=== PATIENT | male | born 1945 | race Caucasian/White ===

== ENCOUNTER 2016-12-15 08:20 | Outpatient (CLI) | payer MEDICARE, BC ==
[~2016-12-15 08:20] MED LIST: ALIS300T PO; ATOR10TA PO; CARV6.252 PO; CLON0.5T4 PO; ESCI10TA PO; LEVO75TA7 PO; MELO-270 PO; QUET25TA PO; TRIA1CAP2 PO
[2016-12-15] MEDS ORDERED: REGADENOSON 0.4 MG/5 ML DISP.SYRIN IVP ONE (10:00)
== END 2016-12-15 23:59 | disposition home or self-care (01) ==
LOC: NM 08:20
PROVIDERS: ATTEND Internal Medicine Interventional Cardiology
DX: Z01.818 Encounter for other preprocedural examination (principal); R07.9 Chest pain, unspecified
CPT/HCPCS: 78452; A9502; J2785

== ENCOUNTER 2017-03-30 10:46 | Outpatient (CLI) | payer MEDICARE, BC ==
[2017-03-30 11:48] LABS: CALCIUM, SERUM 10.6 mg/dL (8.5-10.1); CARBON DIOXIDE 26 mmol/L (21-32); CHLORIDE 106 mmol/L (98-107); CREATININE 1.5 mg/dL (0.6-1.3); GLUCOSE 108 mg/dL (74-106); POTASSIUM 4.2 mmol/L (3.5-5.1); SODIUM SERUM 140 mmol/L (136-145); UREA NITROGEN, BLOOD 27 mg/dL (7-18)
[2017-03-30 14:22] LABS: BASOPHILS % (AUTO) 0.2 % (0.0-2.0); EOSINOPHILS # (AUTO) 0.1 /CMM (0.0-0.7); EOSINOPHILS % (AUTO) 1.5 % (0.0-6.0); HEMATOCRIT 44 % (39-51); HEMOGLOBIN 14.7 g/dL (13.5-17.5); LYMPHOCYTES % (AUTO) 28.8 % (20.0-44.0); MEAN CORPUSCULAR HEMOGLOBIN 30 PG (26.0-33.0); MEAN CORPUSCULAR HGB CONC 33 g/dl (31.0-36.0); MEAN CORPUSCULAR VOLUME 89 fL (80-96); MONOCYTES # (AUTO) 0.6 /CMM (0.1-1.30); MONOCYTES % (AUTO) 8.4 % (2.0-12.0); NEUTROPHILS # (AUTO) 4.1 /CMM (1.8-8.9); NEUTROPHILS % (AUTO) 61.1 % (43.0-81.0); PLATELET COUNT (AUTO) 147 /CMM (150-450); RDW COEFFICIENT OF VARIATION 14.4 (11.5-15.0); RED BLOOD CELL COUNT(AUTO) 4.93 MIL/uL (4.5-6.0); WHITE BLOOD COUNT (AUTO) 6.8 K/uL (4.3-11.0)
== END 2017-03-30 23:59 | disposition home or self-care (01) ==
LOC: LAB 10:46
PROVIDERS: ATTEND Internal Medicine Interventional Cardiology
DX: I25.10 Atherosclerotic heart disease of native coronary artery without angina pectoris (principal)
CPT/HCPCS: 36415; 80048-TC; 85025-TC

== ENCOUNTER 2017-03-31 11:50 | Outpatient (CLI) | payer MEDICARE, BC ==
[2017-03-31] MEDS ORDERED: IOHEXOL-350 100 ML VIAL IV ONE (12:14)
[2017-03-31] MEDS ORDERED: IV NS 0.9% 250 ML IV ONE (12:14)
[2017-03-31] MEDS ORDERED: NITROGLYCERIN 4.9 GM SPRAY ONE (12:32)
== END 2017-03-31 23:59 | disposition home or self-care (01) ==
LOC: RAD 11:50
PROVIDERS: ATTEND Internal Medicine Interventional Cardiology
DX: I77.810 Thoracic aortic ectasia (principal); I25.10 Atherosclerotic heart disease of native coronary artery without angina pectoris; I51.7 Cardiomegaly; I70.0 Atherosclerosis of aorta; I34.0 Nonrheumatic mitral (valve) insufficiency
CPT/HCPCS: 75574; J7050; Q9967

== ENCOUNTER 2017-07-05 14:21 | Inpatient (IN) | payer MEDICARE, BC ==
[~2017-07-05] VITALS: Ht 170.2 cm; Wt 104.8 kg
[~2017-07-05 14:21] MED LIST changes: +MELO-105 PO; -MELO-270 PO
[2017-07-05] MEDS ORDERED: ONDANSETRON HCL/PF 4 MG/2 ML VIAL ONE (14:28)
[2017-07-05] MEDS ORDERED: ONDANSETRON HCL/PF 4 MG/2 ML VIAL IVP ONE (14:30)
[2017-07-05] MEDS ORDERED: IV NS 0.9% 1,000 ML BAG IV ONE (14:30)
[2017-07-05 14:40] LABS: BASOPHILS % (AUTO) 0.6 % (0.0-2.0); EOSINOPHILS # (AUTO) 0.2 /CMM (0.0-0.7); EOSINOPHILS % (AUTO) 2.6 % (0.0-6.0); HEMATOCRIT 43 % (39-51); HEMOGLOBIN 14.8 g/dL (13.5-17.5); LYMPHOCYTES # (AUTO) 1.1 /CMM (0.8-4.8); LYMPHOCYTES % (AUTO) 13.6 % (20.0-44.0); MEAN CORPUSCULAR HEMOGLOBIN 31 PG (26.0-33.0); MEAN CORPUSCULAR HGB CONC 35 g/dl (31.0-36.0); MEAN CORPUSCULAR VOLUME 89 fL (80-96); MONOCYTES # (AUTO) 0.7 /CMM (0.1-1.30); MONOCYTES % (AUTO) 8.6 % (2.0-12.0); NEUTROPHILS # (AUTO) 5.9 /CMM (1.8-8.9); NEUTROPHILS % (AUTO) 74.6 % (43.0-81.0); PLATELET COUNT (AUTO) 215 /CMM (150-450); RDW COEFFICIENT OF VARIATION 13.3 (11.5-15.0); RED BLOOD CELL COUNT(AUTO) 4.83 MIL/uL (4.5-6.0); WHITE BLOOD COUNT (AUTO) 7.9 K/uL (4.3-11.0)
[2017-07-05 14:50] LABS: CALCIUM, SERUM 10.7 mg/dL (8.5-10.1); CARBON DIOXIDE 26 mmol/L (21-32); CHLORIDE 104 mmol/L (98-107); CREATININE 1.6 mg/dL (0.6-1.3); GLUCOSE 104 mg/dL (74-106); POTASSIUM 3.9 mmol/L (3.5-5.1); SODIUM SERUM 139 mmol/L (136-145); UREA NITROGEN, BLOOD 36 mg/dL (7-18)
[2017-07-05 14:54] LABS: INR 0.97 (0.87-1.13); PROTHROMBIN TIME 10.1 SECS (9.5-12.7)
[2017-07-05 14:56] LABS: ALANINE AMINOTRANSFERASE 97 U/L (12-78); ALBUMIN 3.7 g/dL (3.4-5.0); ALKALINE PHOSPHATASE 180 U/L (46-116); ASPARTATE AMINOTRANSFERASE 53 U/L (15-37); BILIRUBIN,DIRECT 0.2 mg/dL (0.0-0.2); BILIRUBIN,TOTAL 0.7 mg/dL (0.2-1.0); TOTAL PROTEIN, SERUM 7.1 g/dL (6.4-8.2)
[2017-07-05 14:58] LABS: TROPONIN I < 0.017 ng/mL (0.00-0.056)
--- NOTE | 2017-07-05 15:00 | NUR ---
BB : S/P SYNCOPE WITNESSED BY . PATIENT RECEIVED AAO3. IN NO DISTRESS. SKIN IS WARM TO TOUCH AND NON DIAPHORETIC. AFEBRILE. VSS
--- NOTE | 2017-07-05 15:45 | NUR ---
PANEL ON-CALL PAGED
--- NOTE | 2017-07-05 16:12 | NUR ---
+ FOR ORTHOSTATIC VITALS - DR. EDWARDS IS AWARE - AT BEDSIDE WHILE DOING THE ORTHO VITALS
--- NOTE | 2017-07-05 16:20 | NUR ---
PANEL TRAINING DEVELOPER PAGED
--- NOTE | 2017-07-05 16:27 | NUR ---
REPORT GIVEN TO BARON ARAIZA FOR YASMINE
[2017-07-05] MEDS ORDERED: ESCI20TA PO (16:32)
[2017-07-05] MEDS ORDERED: QUET50TA PO (16:32)
[2017-07-05] MEDS ORDERED: TAMS-12 PO (16:32)
[2017-07-05] MEDS ORDERED: VALS40TA4 PO (16:33)
[2017-07-05] MEDS ORDERED: IV NS 0.9% 1,000 ML IV PRN ×2 (16:42→18:12)
[2017-07-05] MEDS: LEVOTHYROXINE SODIUM 75 MCG TABLET PO SCH (17:00)
[2017-07-05] MEDS ORDERED: QUETIAPINE FUMARATE 25 MG TABLET PO SCH ×2 (17:00→22:00)
--- NOTE | 2017-07-05 17:15 | NUR ---
PATIENT TRANSPORTED TO 118. VSS
--- NOTE | 2017-07-05 17:30 | NUR ---
STATION AIR TRAFFIC CONTROL SPECIALIST NOTES RECEIVED REPORT FROM SAMUEL IN ER, RECEIVED PATIENT AOX3, NO SIGNS OF DISTRESS, NO SYNCOPE AT THIS TIME NO REPORT OF PAIN, VITALS STABLE ON TELE MONITOR SR -SB 59-60HR, IV R AC 20G, NS @ 200 ML/HR, BELONGINGS LIST DONE, NO SKIN ISSUES NOTED, PATIENT IS ABLE TO AMBULATE BUT IS IS FALL PRECAUTION, AWAITING ADMISSION ORDERS, BED IN LOW AND LOCKED POSITION CALL LIGHT WITHIN REACH, WILL CONTINUE TO MONITOR
[2017-07-05 18:16] VITALS: BP 132/71
[2017-07-05] MEDS ORDERED: ENOXAPARIN SODIUM 40 MG/0.4 ML DISP.SYRIN SQ SCH (18:30)
[2017-07-05] MEDS ORDERED: Z GUARD REMEDY 2 OZ OINT TP PRN (18:30)
[2017-07-05] MEDS ORDERED: ONDANSETRON HCL/PF 4 MG/2 ML VIAL IVP PRN (18:30)
--- NOTE | 2017-07-05 19:10 | NUR ---
OPERATIONS SUPPORT PROFESSIONALS OPENING NOTES RECEIVED REPORT FROM BARON ARAIZA. PATIENT A/A/O X3, ABLE TO MAKE NEEDS KNOWN. BREATHING EVEN & UNLABORED, ON ROOM AIR @ THIS TIME. DENIES SOB OR DIFFICULTY BREATHING. ON TELE SINUS RHYTHM IN THE 70S. DENIES ANY CHEST PAIN, DISCOMFORT, DIZZINESS OR LIGHTHEADEDNESS. RIGHT AC IV #20 INTACT & PATENT W/ DRESSING CDI & IVF NS @ 75 ML/HR. SAFETY MEASURES IN PLACE W/ SIDE RAILS UP, BED LOCKED & IN LOWEST POSITION & CALL LIGHT WITHIN REACH. FALL PRECAUTIONS IN PLACE. WILL CONTINUE TO MONITOR.
[2017-07-05 20:00] VITALS: BP 128/80
[2017-07-05] MEDS ORDERED: clonazePAM 0.5 MG TABLET PO SCH (22:00)
[2017-07-05] MEDS: ACETAMINOPHEN 325 MG TABLET PO PRN (22:55)
[2017-07-06] VITALS: BP 105/69
[2017-07-06 04:00] VITALS: BP 120/78
[2017-07-06] MEDS: ACETAMINOPHEN 325 MG TABLET PO PRN ×3 (06:44→14:51)
[2017-07-06 07:13] LABS: TROPONIN I < 0.017 ng/mL (0.00-0.056)
[2017-07-06 07:18] LABS: BASOPHILS % (AUTO) 0.2 % (0.0-2.0); EOSINOPHILS # (AUTO) 0.3 /CMM (0.0-0.7); EOSINOPHILS % (AUTO) 4.9 % (0.0-6.0); HEMATOCRIT 38 % (39-51); HEMOGLOBIN 13.3 g/dL (13.5-17.5); LYMPHOCYTES # (AUTO) 1.3 /CMM (0.8-4.8); LYMPHOCYTES % (AUTO) 19.9 % (20.0-44.0); MEAN CORPUSCULAR HEMOGLOBIN 32 PG (26.0-33.0); MEAN CORPUSCULAR HGB CONC 35 g/dl (31.0-36.0); MEAN CORPUSCULAR VOLUME 90 fL (80-96); MONOCYTES # (AUTO) 0.7 /CMM (0.1-1.30); MONOCYTES % (AUTO) 11.5 % (2.0-12.0); NEUTROPHILS # (AUTO) 4.1 /CMM (1.8-8.9); NEUTROPHILS % (AUTO) 63.5 % (43.0-81.0); PLATELET COUNT (AUTO) 162 /CMM (150-450); RDW COEFFICIENT OF VARIATION 14.2 (11.5-15.0); RED BLOOD CELL COUNT(AUTO) 4.21 MIL/uL (4.5-6.0); WHITE BLOOD COUNT (AUTO) 6.4 K/uL (4.3-11.0)
[2017-07-06 07:21] LABS: ALANINE AMINOTRANSFERASE 84 U/L (12-78); ALBUMIN 3.4 g/dL (3.4-5.0); ALKALINE PHOSPHATASE 163 U/L (46-116); ASPARTATE AMINOTRANSFERASE 42 U/L (15-37); BILIRUBIN,TOTAL 0.8 mg/dL (0.2-1.0); CARBON DIOXIDE 28 mmol/L (21-32); CHLORIDE 110 mmol/L (98-107); CREATININE 1.3 mg/dL (0.6-1.3); GLUCOSE 98 mg/dL (74-106); PHOSPHORUS 2.6 mg/dL (2.5-4.9); POTASSIUM 3.6 mmol/L (3.5-5.1); SODIUM SERUM 143 mmol/L (136-145); TOTAL PROTEIN, SERUM 6.5 g/dL (6.4-8.2); UREA NITROGEN, BLOOD 31 mg/dL (7-18)
[2017-07-06 07:26] LABS: CHOLESTEROL 145 mg/dL (<200); HDL CHOLESTEROL 49 mg/dL (40-60); LDL 73 mg/dL (0-99); TRIGLYCERIDES 114 mg/dL (30-150)
[2017-07-06 08:00] VITALS: BP_SYST 130; BP_SYST 143; BP_SYST 164; BP_DIAS 72; BP_DIAS 77; BP_DIAS 89
--- NOTE | 2017-07-06 08:00 | NUR ---
TELE1/RN AM SHIFT INITIAL NOTES RECEIVED PT AWAKE SITTING IN BED, PT A/O X 4, COMPLAINT OF BACK PAIN 02/16. NO ACUTE CHANGE OF CONDITION. ON ROOM AIR, SATURATING @ 96%, LUNG SOUND CLEAR. ON TELE WITH SINUS RHYTHM, HR 68. WITH ON GOING IV INFUSION OF NS @ 75CC/HR, IV SITE PATENT WITH NO S/S OF INFECTION. SCHEDULED AM MEDS TO BE GIVEN. CL WITHIN REACHED AND SAFETY MAINTAINED. ON GOING MONITORING. Addendum: 07/06/17 at 1047 by ISRA SMITH RN ADDENDUM: PT DENIES DIZZINESS
[2017-07-06] MEDS ORDERED: TAMSULOSIN 0.4 MG CAP.SR.24H PO SCH (09:00)
[2017-07-06] MEDS ORDERED: ESCITALOPRAM OXALATE (10 MG) 10 MG TABLET PO SCH (09:00)
[2017-07-06] MEDS ORDERED: ATORVASTATIN 10 MG TABLET PO SCH (09:00)
[2017-07-06] MEDS: LEVOTHYROXINE SODIUM 75 MCG TABLET PO SCH (09:15)
--- NOTE | 2017-07-06 10:15 | NUR ---
TELE1/RN ROUNDS - DR. EDWARDS UPDATED PT'S CONDITION. PT SEEN & EXAMINED BY DR. EDWARDS. WITH NEW ORDERS RECEIVED, NOTED AND CARRIED. ON GOING MONITORING.
[2017-07-06] MEDS ORDERED: IV NS 0.9% 1,000 ML IV PRN (10:27)
--- NOTE | 2017-07-06 10:38 | NUR ---
TELE1/RN PHYSICAL THERAPY PT BEING SEEN BY PHYSICAL THERAPIST, PT WALKED (FRONT WHEEL WALKER) WITH THERAPIST. MONITORING. Addendum: 07/06/17 at 1047 by ISRA SMITH RN ADDENDUM: PER PHYSICAL THERAPIST, PT IS MODERATELY INDEPENDENT, JUST NEEDS SUPERVISION. NOTED.
--- NOTE | 2017-07-06 11:00 | NUR ---
MS1/RN IV INFUSION IV INFUSION OF NS @ 200CC/HR INITIATED, TO INFUSE FOR [address] EDWARDS'S ORDER. ON GOING MONITORING.
[2017-07-06 12:00] VITALS: BP 141/85
[2017-07-06 16:00] VITALS: BP 142/90
--- NOTE | 2017-07-06 17:35 | NUR ---
TELE1/MARINE ENGINEERING PROFESSOR HOME DISCHARGE INSTRUCTIONS GIVEN TO PT, VERBALIZED UNDERSTANDING. DISCHARGE DOCUMENTS GIVEN TO PT. IV SITE REMOVED, PRESSURE DRESSING APPLIED, NO S/S OF INFECTION. ID BAND REMOVED. PT LEFT UNIT VIA WHEELCHAIR IN STABLE CONDITION ACCOMPANIED TO HOSPITAL LOBBY TO AN AWAITING PRIVATE CARE.
== END 2017-07-06 17:25 | disposition home or self-care (01) | DRG 73 ==
LOC: ER 14:22 → TELE1 16:38
PROVIDERS: ADMIT Nurse Practitioner Acute Care; ATTEND Nurse Practitioner Acute Care
DX: G90.8 Other disorders of autonomic nervous system (principal); N17.0 Acute kidney failure with tubular necrosis; K72.00 Acute and subacute hepatic failure without coma; E78.5 Hyperlipidemia, unspecified; I34.1 Nonrheumatic mitral (valve) prolapse; I10 Essential (primary) hypertension; I70.0 Atherosclerosis of aorta; Z79.899 Other long term (current) drug therapy; M19.90 Unspecified osteoarthritis, unspecified site; F32.9 Major depressive disorder, single episode, unspecified; E83.52 Hypercalcemia; E86.0 Dehydration; M62.40 Contracture of muscle, unspecified site; N40.0 Benign prostatic hyperplasia without lower urinary tract symptoms; Z86.73 Personal history of transient ischemic attack (TIA), and cerebral infarction without residual deficits; Z87.11 Personal history of peptic ulcer disease; M53.3 Sacrococcygeal disorders, not elsewhere classified
CPT/HCPCS: 36415; 70450-TC; 71010-TC; 72170-TC; 80048-TC; 80053-TC; 80061-TC; 80076-TC; 83735-TC; 84100-TC; 84484-TC; 85025-TC; 85730-TC; 86850-TC; 93307-TC; A4606; J1650; J2405; J3490; J7030; Z7610

== ENCOUNTER 2018-03-04 14:31 | Inpatient (IN) | payer MEDICARE, BC ==
[2018-03-03 20:00] VITALS: BP 119/75
[~2018-03-04] VITALS: Ht 170.2 cm; Wt 98.4 kg
[~2018-03-04 14:31] MED LIST changes: -ALIS300T PO; -CARV6.252 PO; +CLON0.5T12 PO; -CLON0.5T4 PO; -ESCI10TA PO; +ESCI20TA PO; -MELO-105 PO; -QUET25TA PO; +QUET50TA PO; +TAMS-12 PO; +VALS40TA4 PO
--- NOTE | 2018-03-04 14:40 | NUR ---
BBRA FOR S/P SYNCOPE, +HEAD HEMATOMA. PT DENIES NECK/BACK PAIN. HYPOTENSIVE IN THE FIELD. AAOX3, DENIES CP, SOB, DIZZINESS, N/V, ARM/JAW PAIN @ THIS TIME. WILL CONT TO MONITOR.
[2018-03-04] MEDS ORDERED: IV NS 0.9% 500 ML BAG IV ONE (15:00)
[2018-03-04 15:07] LABS: BASOPHILS % (AUTO) 0.1 % (0.0-2.0); EOSINOPHILS % (AUTO) 1.1 % (0.0-6.0); HEMATOCRIT 38 % (39-51); HEMOGLOBIN 12.7 g/dL (13.5-17.5); LYMPHOCYTES # (AUTO) 1.1 /CMM (0.8-4.8); LYMPHOCYTES % (AUTO) 14.7 % (20.0-44.0); MEAN CORPUSCULAR HEMOGLOBIN 30 PG (26.0-33.0); MEAN CORPUSCULAR HGB CONC 34 g/dl (31.0-36.0); MEAN CORPUSCULAR VOLUME 89 fL (80-96); MONOCYTES # (AUTO) 0.9 /CMM (0.1-1.30); MONOCYTES % (AUTO) 11.7 % (2.0-12.0); NEUTROPHILS # (AUTO) 5.4 /CMM (1.8-8.9); NEUTROPHILS % (AUTO) 72.4 % (43.0-81.0); PLATELET COUNT (AUTO) 146 /CMM (150-450); RDW COEFFICIENT OF VARIATION 12.6 (11.5-15.0); RED BLOOD CELL COUNT(AUTO) 4.24 MIL/uL (4.5-6.0); WHITE BLOOD COUNT (AUTO) 7.5 K/uL (4.3-11.0)
[2018-03-04 15:17] LABS: CALCIUM, SERUM 9.6 mg/dL (8.5-10.1); CARBON DIOXIDE 25 mmol/L (21-32); CHLORIDE 106 mmol/L (98-107); CREATININE 1.8 mg/dL (0.6-1.3); GLUCOSE 111 mg/dL (74-106); POTASSIUM 3.6 mmol/L (3.5-5.1); SODIUM SERUM 136 mmol/L (136-145); UREA NITROGEN, BLOOD 30 mg/dL (7-18)
[2018-03-04 15:20] LABS: INR 0.95 (0.85-1.15)
[2018-03-04 15:26] LABS: TROPONIN I < 0.017 ng/mL (0.00-0.056)
--- NOTE | 2018-03-04 16:30 | NUR ---
Note rayne in ED - 03/04/18 at 1712 by RAFA PT AAOX3, DENIES CP, SOB, DIZZINESS, N/V @ THIS TIME. PT SITTING UP, EATING A MEAL, CLAUDETTE WELL.
--- NOTE | 2018-03-04 17:15 | NUR ---
CALLED NURSING TRANSFER STATION ATTENDANT AND REQUESTED A TELE BED FOR THIS PT.
--- NOTE | 2018-03-04 17:18 | NUR ---
CALLED [facility] FOR PANEL CALL AND DR TORRE WAS PAGED.
--- NOTE | 2018-03-04 17:44 | NUR ---
PT IS ASSIGNED TO [facility]#: [id number], DX: SYNCOPE, AND ACCEPTING: DR. TORRE.
[2018-03-04] MEDS ORDERED: IRBE300T19 PO (18:16)
[2018-03-04] MEDS ORDERED: VALS320T16 PO (18:16)
[2018-03-04] MEDS ORDERED: DICY10CA13 PO (18:16)
[2018-03-04] MEDS ORDERED: LORA2TAB PO (18:16)
[2018-03-04 19:00] VITALS: BP 119/75
[2018-03-04] MEDS ORDERED: ACETAMINOPHEN 325 MG TABLET PO PRN (19:00)
[2018-03-04] MEDS ORDERED: ZOLPIDEM TARTRATE 5 MG TABLET PO PRN (19:00)
[2018-03-04] MEDS ORDERED: MAG HYDROX/AL HYDROX/SIMETH 30 ML UDC PO PRN (19:00)
[2018-03-04] MEDS ORDERED: MAGNESIUM HYDROXIDE 30 ML UDC PO PRN (19:00)
[2018-03-04] MEDS ORDERED: ONDANSETRON HCL/PF 4 MG/2 ML VIAL IVP PRN (19:00)
[2018-03-04] MEDS ORDERED: Z GUARD REMEDY 2 OZ OINT TP PRN (19:00)
[2018-03-04] MEDS ORDERED: LORAZEPAM 1 MG TABLET PO PRN (19:00)
--- NOTE | 2018-03-04 19:00 | NUR ---
RN NOTE RECEIVED REPORT FROM ALEKSEY TAY RN. RECEIVED PATIENT 72 YEAR OLD MALE ALERT AND ORIENTED X4, HE IS ABLE TO MAKE THINGS KNOWN AND VERBALIZE NEEDS. BREATHING EVEN AND UNLABORED WITH NO DISTRESS NOTED. ON LENDING ACTIVITIES SUPERVISOR SINUS ASHLYN HR OF 57. REORIENTED PATIENT TO ROOM AND CALL BUTTON. LEFT AC 18G INTACT AND PATENT AND RIGHT AC 18G INTACT AND PATENT. ALL SAFETY MEASURE DONE. BED LOW AND LOCK POSITION. WILL ENDORSE TO NEXT T0 CONTINUE ADMISSION PROCESS FOR PATIENT AND CONTINUITY OF CARE.
[2018-03-04 20:00] VITALS: BP 144/75
--- NOTE | 2018-03-04 20:00 | NUR ---
HORSE RIDING COACH OR INSTRUCTOR NOTE RECEIVED REPORT FROM SUE ARAIZA. RECEIVED PATIENT 72 YEAR OLD MALE ALERT AND ORIENTED X4, HE IS ABLE TO MAKE NEEDS KNOWN. BREATHING EVEN AND UNLABORED WITH NO DISTRESS NOTED. ON ADMINISTRATIVE TECHNICIAN SINUS ASHLYN HR OF 52. LEFT AC 18G INTACT AND PATENT AND RIGHT AC 18G INTACT AND PATENT. ALL SAFETY MEASURE DONE. BED LOW AND LOCK POSITION. CALL LIGHT WITH IN REACH. WILL COMPLETE ADMISSION PROCESS.
[2018-03-04 20:02] VITALS: BP 153/87
[2018-03-04 20:04] VITALS: BP 137/74
[2018-03-04] MEDS: HYDROCODONE/APAP 5/325MG 1 EACH TABLET PO PRN (20:46)
[2018-03-04] MEDS: QUETIAPINE FUMARATE 25 MG TABLET PO SCH (21:08)
[2018-03-04] MEDS ORDERED: clonazePAM 0.5 MG TABLET PO SCH (22:00)
[2018-03-05] VITALS (7 sets, daily range): BP systolic 101–155; BP diastolic 64–97
[2018-03-05 03:32] LABS: BASOPHILS % (AUTO) 0.3 % (0.0-2.0); EOSINOPHILS % (AUTO) 2.7 % (0.0-6.0); HEMATOCRIT 38 % (39-51); HEMOGLOBIN 12.4 g/dL (13.5-17.5); LYMPHOCYTES # (AUTO) 1.5 /CMM (0.8-4.8); MEAN CORPUSCULAR HEMOGLOBIN 31 PG (26.0-33.0); MEAN CORPUSCULAR HGB CONC 33 g/dl (31.0-36.0); MEAN CORPUSCULAR VOLUME 93 fL (80-96); MONOCYTES # (AUTO) 0.7 /CMM (0.1-1.30); MONOCYTES % (AUTO) 10.5 % (2.0-12.0); NEUTROPHILS % (AUTO) 62.5 % (43.0-81.0); PLATELET COUNT (AUTO) 146 /CMM (150-450); RED BLOOD CELL COUNT(AUTO) 4.05 MIL/uL (4.5-6.0); WHITE BLOOD COUNT (AUTO) 6.4 K/uL (4.3-11.0)
[2018-03-05 03:44] LABS: CALCIUM, SERUM 9.4 mg/dL (8.5-10.1); CARBON DIOXIDE 26 mmol/L (21-32); CHLORIDE 106 mmol/L (98-107); CREATININE 1.4 mg/dL (0.6-1.3); GLUCOSE 107 mg/dL (74-106); MAGNESIUM 2.2 mg/dL (1.8-2.4); PHOSPHORUS 3.6 mg/dL (2.5-4.9); POTASSIUM 3.7 mmol/L (3.5-5.1); SODIUM SERUM 139 mmol/L (136-145); UREA NITROGEN, BLOOD 32 mg/dL (7-18)
[2018-03-05 03:47] LABS: CHOLESTEROL 140 mg/dL (<200); HDL CHOLESTEROL 51 mg/dL (40-60); LDL 73 mg/dL (0-99); TRIGLYCERIDES 86 mg/dL (30-150)
[2018-03-05] MEDS: IV NS 0.9% 1,000 ML IV PRN ×2 (04:11→21:43)
--- NOTE | 2018-03-05 07:30 | NUR ---
NURSE RECEPTIONIST OPENING NOTE RECEIVED PATIENT THIS MORNING IN STABLE CONDITION, AWAKE RESTING IN BED, A&OX4, ABLE TO MAKE NEEDS KNOWN. SINUS BRADYCARDIA ON MONITOR, HEART RATE 55 WITH OCCASIONAL PVCS. WILL FOLLOW UP WITH MD. OXYGEN ON VIA NASAL CANNULA BUT PATIENT STATES HE DOES NOT NEED IT DURING THE DAY AND REMOVES IT. LEFT AC IV SITE INFUSING NORMAL SALINE AT 100ML/HR. RIGHT AC IV SITE SALINE LOCK. HEAD OF BED ELEVATED, BED LOW AND LOCKED, CALL LIGHT WITHIN REACH, WILL CONTINUE TO MONITOR.
--- NOTE | 2018-03-05 07:44 | NUR ---
RN CLOSING NOTE PT REMAINED STABLE DURING SHIFT. NO ACUTE DISTRESS NOTED. PICS TAKEN. ASPIRATION AND FALL PRECAUTIONS OBSERVED. ALL ADMISSION ORDERS COMPLETED. ALL DUE MEDICATION GIVEN. ALL NEEDS MET. WILL ENDORSE TO AM SHIFT FOR CONTINUITY OF CARE.
[2018-03-05] MEDS ORDERED: ESCITALOPRAM OXALATE (10 MG) 10 MG TABLET PO SCH (09:00)
[2018-03-05] MEDS: QUETIAPINE FUMARATE 25 MG TABLET PO SCH (09:00)
[2018-03-05] MEDS ORDERED: IV NS 0.9% 1,000 ML BAG IV SCH (09:00)
[2018-03-05] MEDS: LEVOTHYROXINE SODIUM 75 MCG TABLET PO SCH (09:48)
[2018-03-05] MEDS ORDERED: DICYCLOMINE HCL 10 MG CAPSULE PO PRN (12:00)
[2018-03-05] MEDS: HYDROCODONE/APAP 5/325MG 1 EACH TABLET PO PRN (15:05)
--- NOTE | 2018-03-05 18:12 | NUR ---
URBAN SOCIOLOGIST NOTES SPOKE WITH AND PATIENT AT BEDSIDE AND STATED WANTS TO GO HOME, EXPLAINED THAT THERE WILL BE SOME CONSULTS TODAY AND MD NEEDS TO REVIEW AND DECIDE WHEN PT WILL BE DISCHARGED, WILL CONTINUE TO MONITOR AND WAIT FOR MD ORDERS.
--- NOTE | 2018-03-05 19:30 | NUR ---
RN/TELE NOTES: RECEIVED PT. IN BED W/HOB ELEVATED W/ AT BEDSIDE. DENIES ANY C/O CHEST PAIN OR SOB AT PRESENT. W/ RIGHT AC 18 G SL PATENT AND INTACT W/ NO S/S OF INFECTION/INFILTRATION NOTED. W/ NS @ 100 ML/HR TOLERATING WELL. ALL NEEDS MEET. WILL CONTINUE TO MONITOR.
[2018-03-05] MEDS ORDERED: QUETIAPINE FUMARATE 25 MG TABLET PO SCH (22:00)
[2018-03-05] MEDS ORDERED: clonazePAM 1 MG TABLET PO PRN (22:00)
[2018-03-06 04:00] VITALS: BP 140/90
--- NOTE | 2018-03-06 07:52 | NUR ---
MS RN NOTES: RECEIVED PT ON BED AWAKE AND ALERT, VERBALLY RESPONSIVE. NO ACUTE DISTRESS NOTED. DENIES PAIN AND DISCOMFORT. ON ROOM AIR, SATURATING WELL. BREATHING EVEN AND UNLABORED WITH NORMAL RESPIRATIONS. IV ON LEFT ANTECUBITAL #18 INTACT AND PATENT, WITH IVF NS RUNNING AT 100ML/HR, INFUSING WELL. CALL LIGHT PLACED WITHIN REACH. KEPT CLEAN, DRY AND COMFORTABLE. ENCOURAGED TO VERBALIZE NEEDS AND CONCERNS. SAFETY AND FALL PRECAUTIONS OBSERVED AND MAINTAINED. WILL CONTINUE TO MONITOR PT.
--- NOTE | 2018-03-06 07:54 | NUR ---
RN/MS NOTES: REPORT GIVEN TO AM NURSE FOR YASMINE.
[2018-03-06 08:00] VITALS: BP 130/76
[2018-03-06] MEDS: LEVOTHYROXINE SODIUM 75 MCG TABLET PO SCH (08:23)
[2018-03-06] MEDS ORDERED: ESCITALOPRAM OXALATE (10 MG) 10 MG TABLET PO SCH (09:00)
--- NOTE | 2018-03-06 15:48 | NUR ---
MS RN NOTES: PT WAS DISCHARGED HOME, PICKED UP BY HIS . PT IN STABLE CONDITION. NO ACUTE DISTRESS NOTED. VITAL SIGNS STABLE. IV ON LEFT ANTECUBITAL AND RIGHT ANTECUBITAL WAS REMOVED. BELONGINGS LIST SIGNED BY PT. PICTURE TAKEN AND PLACED ON CHART. EXIT CARE PROVIDED.
== END 2018-03-06 15:36 | disposition home or self-care (01) | DRG 73 ==
LOC: ER 14:35 → TELE1 17:52 → MEDSG1 03-06 01:53
PROVIDERS: ADMIT Family Medicine; ATTEND Family Medicine
DX: G90.8 Other disorders of autonomic nervous system (principal); N17.0 Acute kidney failure with tubular necrosis; E44.0 Moderate protein-calorie malnutrition; E86.9 Volume depletion, unspecified; I34.1 Nonrheumatic mitral (valve) prolapse; N40.0 Benign prostatic hyperplasia without lower urinary tract symptoms; E78.5 Hyperlipidemia, unspecified; E03.9 Hypothyroidism, unspecified; F41.9 Anxiety disorder, unspecified; E86.0 Dehydration; Z79.899 Other long term (current) drug therapy; Z87.11 Personal history of peptic ulcer disease; Z82.49 Family history of ischemic heart disease and other diseases of the circulatory system; I73.9 Peripheral vascular disease, unspecified; Z86.19 Personal history of other infectious and parasitic diseases; Z80.9 Family history of malignant neoplasm, unspecified; Z98.890 Other specified postprocedural states; I12.9 Hypertensive chronic kidney disease with stage 1 through stage 4 chronic kidney disease, or unspecified chronic kidney disease; N18.9 Chronic kidney disease, unspecified; R73.9 Hyperglycemia, unspecified; Z68.33 Body mass index [BMI] 33.0-33.9, adult; E66.9 Obesity, unspecified; M48.00 Spinal stenosis, site unspecified; R00.1 Bradycardia, unspecified; K59.00 Constipation, unspecified; R29.6 Repeated falls
CPT/HCPCS: 36415; 70450-TC; 71045-TC; 80048-TC; 80061-TC; 83605-TC; 83735-TC; 84100-TC; 84484-TC; 85025-TC; 85730-TC; 87081-TC; 93307-TC; 93880-TC; A4606; J7030; J7040; Z7610

== ENCOUNTER 2018-04-20 12:28 | Outpatient (CLI) | payer MEDICARE, BC ==
[~2018-04-20 12:28] MED LIST changes: -ATOR10TA PO; +DICY10CA13 PO; +IRBE300T19 PO; +LORA2TAB PO; +VALS320T16 PO; -VALS40TA4 PO
[2018-04-20 13:25] LABS: CALCIUM, SERUM 9.7 mg/dL (8.5-10.1); CARBON DIOXIDE 24 mmol/L (21-32); CHLORIDE 109 mmol/L (98-107); CREATININE 1.1 mg/dL (0.6-1.3); GLUCOSE 95 mg/dL (74-106); SODIUM SERUM 143 mmol/L (136-145); UREA NITROGEN, BLOOD 31 mg/dL (7-18)
== END 2018-04-20 23:59 | disposition home or self-care (01) ==
LOC: LAB 12:28
DX: I11.0 Hypertensive heart disease with heart failure (principal); I50.9 Heart failure, unspecified
CPT/HCPCS: 36415; 80048-TC

== ENCOUNTER 2019-02-07 11:13 | Inpatient (IN) | payer MEDICARE, BC ==
[~2019-02-07] VITALS: Ht 172.7 cm; Wt 86.2 kg
--- NOTE | 2019-02-07 11:21 | NUR ---
BIB FOR SYNCOPAL EPISODE AT AROUND 1030. 3 SYNCOPAL EPISODE IN 2 WEEKS PER , PT C/O LOWER BACK PAIN. TO ER BED 10, HOOKED TO MONITOR, CHANGED TO GOWN, PROVIDED W WARM BLANKET, AOx3, AWAITING MD GOLD.
--- NOTE | 2019-02-07 11:30 | NUR ---
DR KENT AT BEDSIDE
--- NOTE | 2019-02-07 11:36 | NUR ---
THERMAL INTELLIGENCE ANALYST AT BEDSIDE
[2019-02-07 11:41] LABS: BASOPHILS % (AUTO) 0.7 % (0.0-2.0); EOSINOPHILS % (AUTO) 1.2 % (0.0-6.0); HEMATOCRIT 38 % (39-51); HEMOGLOBIN 12.7 g/dL (13.5-17.5); LYMPHOCYTES # (AUTO) 1.3 /CMM (0.8-4.8); LYMPHOCYTES % (AUTO) 17.6 % (20.0-44.0); MEAN CORPUSCULAR HGB CONC 33 g/dl (31.0-36.0); MEAN CORPUSCULAR VOLUME 84 fL (80-96); MONOCYTES # (AUTO) 0.8 /CMM (0.1-1.30); MONOCYTES % (AUTO) 11.4 % (2.0-12.0); NEUTROPHILS % (AUTO) 69.1 % (43.0-81.0); PLATELET COUNT (AUTO) 222 /CMM (150-450); RED BLOOD CELL COUNT(AUTO) 4.53 MIL/uL (4.5-6.0); WHITE BLOOD COUNT (AUTO) 7.3 K/uL (4.3-11.0)
[2019-02-07 11:54] LABS: CARBON DIOXIDE 30 mmol/L (21-32); CHLORIDE 105 mmol/L (98-107); CREATININE 1.4 mg/dL (0.6-1.3); GLUCOSE 75 mg/dL (74-106); POTASSIUM 3.8 mmol/L (3.5-5.1); SODIUM SERUM 141 mmol/L (136-145); UREA NITROGEN, BLOOD 26 mg/dL (7-18)
--- NOTE | 2019-02-07 12:24 | NUR ---
CALLED [facility], PAGED ALAN
[2019-02-07] MEDS ORDERED: PANT40TA4 PO (12:52)
[2019-02-07] MEDS ORDERED: AMIO200T4 PO (12:52)
[2019-02-07] MEDS ORDERED: WARF4TAB41 PO (12:52)
--- NOTE | 2019-02-07 13:30 | NUR ---
REPORT GIVEN TO DAMEON ARAIZA OF TELE UNIT
[2019-02-07 13:50] LABS: ALANINE AMINOTRANSFERASE 17 U/L (12-78); ALBUMIN 3.5 g/dL (3.4-5.0); ALKALINE PHOSPHATASE 80 U/L (46-116); ASPARTATE AMINOTRANSFERASE 24 U/L (15-37); BILIRUBIN,TOTAL 0.3 mg/dL (0.2-1.0); CARBON DIOXIDE 24 mmol/L (21-32); CHLORIDE 101 mmol/L (98-107); CREATININE 1.4 mg/dL (0.6-1.3); GLUCOSE 71 mg/dL (74-106); SODIUM SERUM 138 mmol/L (136-145); TOTAL PROTEIN, SERUM 6.9 g/dL (6.4-8.2); UREA NITROGEN, BLOOD 27 mg/dL (7-18)
[2019-02-07 14:30] VITALS: BP 153/110
[2019-02-07] MEDS ORDERED: ONDANSETRON HCL/PF 4 MG/2 ML VIAL IVP PRN (14:30)
[2019-02-07] MEDS ORDERED: Z GUARD REMEDY 2 OZ OINT TP PRN (14:30)
[2019-02-07] MEDS ORDERED: MAGNESIUM HYDROXIDE 30 ML UDC PO PRN (14:30)
[2019-02-07] MEDS ORDERED: MAG HYDROX/AL HYDROX/SIMETH 30 ML UDC PO PRN (14:30)
[2019-02-07 16:00] VITALS: BP 151/98
[2019-02-07] MEDS: WARFARIN SODIUM 2 MG TABLET PO SCH (17:27)
[2019-02-07] MEDS: IV NS 0.9% 1,000 ML IV PRN (17:32)
--- NOTE | 2019-02-07 18:30 | NUR ---
RN NOTE: PATIENT RECEIVED FROM ER ALERT AWAKE ORIENTED X 4. ON ROOM AIR, NO BREATHING DISTRESS NOTED. DENIES PAIN & DISCOMFORT. AMBULATORY. SKIN ASSESSED, PICTURE TAKEN & WOUND CONSULT ORDERED. IV FLUIDS RUNNING ORDERED. NO SYNCOPAL EPISODE NOTED. BED ALARM ON. ENCOURAGE PATIENT TO USE CALL LIGHT FOR ASSISTANCE. SAFETY MEASURES OBSERVED. CALL LIGHT WITHIN REACH. PATIENT C/O OF DINNER SANDWICH. CALLED KITCHEN TO MADE AWARE.
--- NOTE | 2019-02-07 19:30 | NUR ---
RN NOTE: PATIENT RECEIVED FROM ER ALERT AWAKE ORIENTED X 4. ON ROOM AIR, NO BREATHING DISTRESS NOTED. DENIES PAIN & DISCOMFORT. AMBULATORY. SKIN ASSESSED, PICTURE TAKEN & WOUND CONSULT ORDERED. IV FLUIDS RUNNING ORDERED. BED ALARM ON. ENCOURAGE PATIENT TO USE CALL LIGHT FOR ASSISTANCE. SAFETY MEASURES OBSERVED. CALL LIGHT WITHIN REACH. .
[2019-02-07 20:00] VITALS: BP 140/89
[2019-02-07] MEDS: QUETIAPINE FUMARATE 25 MG TABLET PO SCH (22:07)
[2019-02-08] VITALS (7 sets, daily range): BP systolic 133–167; BP diastolic 80–104
[2019-02-08] MEDS ORDERED: hydrALAZINE HCL IV 20 MG VIAL IV PRN
[2019-02-08] MEDS: TEMAZEPAM 15 MG CAPSULE PO PRN ×2 (01:42→21:21)
--- NOTE | 2019-02-08 05:52 | NUR ---
ECG DONE. RESULTED WITH SINUS ASHLYN. 53 BPM. WITH FIRST DEGREE AV BLOCK.
--- NOTE | 2019-02-08 06:33 | NUR ---
RN CLOSING NOTES PATIENT RECEIVED FROM ER ALERT AWAKE ORIENTED X 4. ON ROOM AIR, NO BREATHING DISTRESS NOTED. DENIES PAIN & DISCOMFORT. AMBULATORY. SKIN ASSESSED, PICTURE TAKEN & WOUND CONSULT ORDERED. IV FLUIDS RUNNING ORDERED. NO SYNCOPAL EPISODE NOTED. BED ALARM ON. ENCOURAGE PATIENT TO USE CALL LIGHT FOR ASSISTANCE. SAFETY MEASURES OBSERVED. CALL LIGHT WITHIN REACH. PT SLEPT WELL OVERNIGHT. ECG RAN OVERNIGHT. SINUS ASHLYN AND FIRST DEGREE BLOCK NOTED. 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 VITALS STABLE. SAFETY PRECAUTIONS IN PLACE. WILL ENDORSE TO AM SHIFT TO POND OUT PLAN OF CARE.
--- NOTE | 2019-02-08 07:00 | NUR ---
INSURANCE CUSTOMER SERVICE SPECIALIST OPENING NOTES RECEIVED PT LYING ON BED.ALERT/ORIENTED X4 WITH SLEEPY MOOD.ON TELE HR IS 54 WITH SB,PT IS ASYMPTOMATIC.ON NC 2LPM O2 CONTINUOUSLY,NO SOB AND ACUTE DISTRESS NOTED.PT IS CONTINENT AND CAN HAVE MINIMUM ASSISTANCE.IV LINE IS ON LEFT AC G20,WITH IV NS@125ML/HR IS RUNNING.IV SITE IS CLEAN,DRY AND INTACT.NO INFILTRATION NOTED.BED IS IN LOW POSITION AND LOCKED.CALL LIGHT IS WITHIN REACH.WILL CONTINUE TO MONITOR THE PT CLOSELY.
[2019-02-08] MEDS: IV NS 0.9% 1,000 ML IV PRN ×2 (07:06→18:07)
[2019-02-08 07:38] LABS: ALANINE AMINOTRANSFERASE 12 U/L (12-78); ALBUMIN 2.9 g/dL (3.4-5.0); ALKALINE PHOSPHATASE 63 U/L (46-116); ASPARTATE AMINOTRANSFERASE 17 U/L (15-37); BILIRUBIN,TOTAL 0.4 mg/dL (0.2-1.0); CALCIUM, SERUM 9.5 mg/dL (8.5-10.1); CARBON DIOXIDE 26 mmol/L (21-32); CHLORIDE 109 mmol/L (98-107); CREATININE 1.1 mg/dL (0.6-1.3); GLUCOSE 92 mg/dL (74-106); POTASSIUM 3.6 mmol/L (3.5-5.1); SODIUM SERUM 142 mmol/L (136-145); TOTAL PROTEIN, SERUM 5.8 g/dL (6.4-8.2); UREA NITROGEN, BLOOD 22 mg/dL (7-18)
[2019-02-08 07:40] LABS: BASOPHILS % (AUTO) 0.3 % (0.0-2.0); EOSINOPHILS % (AUTO) 1.8 % (0.0-6.0); HEMATOCRIT 34 % (39-51); HEMOGLOBIN 11.2 g/dL (13.5-17.5); LYMPHOCYTES # (AUTO) 1.6 /CMM (0.8-4.8); LYMPHOCYTES % (AUTO) 29.7 % (20.0-44.0); MEAN CORPUSCULAR HGB CONC 34 g/dl (31.0-36.0); MEAN CORPUSCULAR VOLUME 83 fL (80-96); MONOCYTES # (AUTO) 0.6 /CMM (0.1-1.30); MONOCYTES % (AUTO) 10.4 % (2.0-12.0); NEUTROPHILS # (AUTO) 3.1 /CMM (1.8-8.9); NEUTROPHILS % (AUTO) 57.8 % (43.0-81.0); PLATELET COUNT (AUTO) 188 /CMM (150-450); RED BLOOD CELL COUNT(AUTO) 4.04 MIL/uL (4.5-6.0); WHITE BLOOD COUNT (AUTO) 5.4 K/uL (4.3-11.0)
[2019-02-08 07:43] LABS: CHOLESTEROL 174 mg/dL (<200); HDL CHOLESTEROL 49 mg/dL (40-60); LDL 108 mg/dL (0-99); THYROID STIMULATING HORMONE 1.587 uIU/mL (0.358-3.74); TRIGLYCERIDES 97 mg/dL (30-150)
[2019-02-08] MEDS: LEVOTHYROXINE SODIUM 75 MCG TABLET PO SCH (08:20)
[2019-02-08] MEDS: TAMSULOSIN 0.4 MG CAP.SR.24H PO SCH (08:20)
[2019-02-08] MEDS: PANTOPRAZOLE 40 MG TABLET.DR PO SCH (08:20)
[2019-02-08] MEDS: ESCITALOPRAM OXALATE (10 MG) 10 MG TABLET PO SCH (08:20)
[2019-02-08] MEDS: QUETIAPINE FUMARATE 25 MG TABLET PO SCH ×2 (08:21→21:20)
[2019-02-08] MEDS: AMIODARONE HCL 200 MG TABLET PO SCH (09:00)
[2019-02-08 09:01] LABS: THYROID STIMULATING HORMONE 1.456 uIU/mL (0.358-3.74)
--- NOTE | 2019-02-08 09:12 | NUR ---
WOUND CARE CONSULT: PT PRESENTS WITH LEFT BUTTOCK STAGE 2 ULCER, PRESENT ON ADMISSION. PT IS INCONTINENT AT TIMES. RECOMMENDATIONS MADE FOR WOUND CARE AND SKIN PROTECTION. DISCUSSED WITH NURSING STAFF. WILL SEE PRN. HO IN AGREEMENT WITH PLAN OF CARE. ISOFLEX LOW AIRLOSS BED TO BE PLACED. Addendum: 02/08/19 at 0916 by BRIEN CRENSHAW WNDNU Amended: Links added.
[2019-02-08] MEDS ORDERED: HYDROGEL DRESSING 90 GM TUBE TP PRN (09:30)
[2019-02-08] MEDS: AMLODIPINE BESYLATE 2.5 MG TABLET PO SCH (09:39)
[2019-02-08] MEDS: HYDROGEL DRESSING 90 GM TUBE TP SCH (13:08)
[2019-02-08] MEDS: WARFARIN SODIUM 2 MG TABLET PO SCH (17:26)
--- NOTE | 2019-02-08 18:39 | NUR ---
ROOFER GYPSUM CLOSING NOTES PT IS LYING ON BED WITH 2LPM O2 CONTINUOUSLY.NO SOB AND ACUTE DISTRESS NOTED.IV LINE IS IN PLACE WITH IV FLUID IS RUNNING.SITE IS CLEAN,DRY AND INTACT.NO INFILTRATION NOTED.RESPIRATION IS EVEN AND NONLABORED.WILL ENDORSE TO MINE TECHNICIAN RN FOR YASMINE.
--- NOTE | 2019-02-08 20:00 | NUR ---
PRINT GRAPHIC DESIGNER NOTES PTS IN BED AWAKE ALERT AND RESPONSIVE , ABLE TO MAKE NEEDS KNOWN , ON TELE PTS ON SB-SR ON THE MONITOR , ON 2 LITERS OF O2 VIA NC SATING 96% NO SOB NO DISTRESS NOTED .BREATHING EVEN AND UNLABORED . ON LEFT AC G#20 with ivf of ns at 125cc/hr . infusing well. all needs attended too call light within reach all due meds given as ordered v/s stable afebrile , kept pts clean dry and comfortable. will continue to monitor pts.
[2019-02-08] MEDS: ACETAMINOPHEN 325 MG TABLET PO PRN (20:41)
[2019-02-08] MEDS: DOXAZOSIN MESYLATE (1 MG) 1 MG TABLET PO SCH (21:20)
[2019-02-08] MEDS: hydrALAZINE HCL IV 20 MG VIAL IV PRN (23:45)
[2019-02-09] VITALS (7 sets, daily range): BP systolic 121–170; BP diastolic 76–110
--- NOTE | 2019-02-09 | NUR ---
SLEEVE TURNER NOTES BLOOD PRESSURE 170/90 HR 66 , APRESOLINE 10MG IV PUSH PRN GIVEN ORDERED.
--- NOTE | 2019-02-09 01:00 | NUR ---
OUTSIDE ENERGY SALES REPRESENTATIVES NOTES BP CHECKED 121/76 HR OF 59, WILL CONTINUE TO MONITOR PTS.
[2019-02-09] MEDS: IV NS 0.9% 1,000 ML IV PRN ×3 (02:27→21:14)
--- NOTE | 2019-02-09 04:50 | NUR ---
radiotelegraph operator notes pts on sb 55 with 1 pvc noted,pts is sleeping at this time. will continue to monitor.
--- NOTE | 2019-02-09 06:36 | NUR ---
telehealth coordinator notes pts in bed awake alert and responsive ,pts remains on sinus amy .v/s stable , no sob no distress noted all needs attended too, pts remains on ns 125 cc/hr infusing well.will endorse pts to rn day shift for continuity of care.
[2019-02-09 06:46] LABS: BASOPHILS % (AUTO) 0.4 % (0.0-2.0); HEMATOCRIT 33 % (39-51); HEMOGLOBIN 11.1 g/dL (13.5-17.5); LYMPHOCYTES # (AUTO) 1.4 /CMM (0.8-4.8); LYMPHOCYTES % (AUTO) 26.4 % (20.0-44.0); MEAN CORPUSCULAR HGB CONC 34 g/dl (31.0-36.0); MEAN CORPUSCULAR VOLUME 83 fL (80-96); MONOCYTES # (AUTO) 0.5 /CMM (0.1-1.30); MONOCYTES % (AUTO) 10.2 % (2.0-12.0); NEUTROPHILS # (AUTO) 3.2 /CMM (1.8-8.9); PLATELET COUNT (AUTO) 175 /CMM (150-450); RED BLOOD CELL COUNT(AUTO) 3.98 MIL/uL (4.5-6.0); WHITE BLOOD COUNT (AUTO) 5.2 K/uL (4.3-11.0)
[2019-02-09 06:51] LABS: ALANINE AMINOTRANSFERASE 13 U/L (12-78); ALBUMIN 2.7 g/dL (3.4-5.0); ALKALINE PHOSPHATASE 62 U/L (46-116); ASPARTATE AMINOTRANSFERASE 10 U/L (15-37); BILIRUBIN,TOTAL 0.2 mg/dL (0.2-1.0); CALCIUM, SERUM 9.2 mg/dL (8.5-10.1); CARBON DIOXIDE 25 mmol/L (21-32); CHLORIDE 108 mmol/L (98-107); CREATININE 1.1 mg/dL (0.6-1.3); GLUCOSE 98 mg/dL (74-106); MAGNESIUM 1.9 mg/dL (1.8-2.4); POTASSIUM 3.5 mmol/L (3.5-5.1); SODIUM SERUM 142 mmol/L (136-145); TOTAL PROTEIN, SERUM 5.5 g/dL (6.4-8.2); UREA NITROGEN, BLOOD 19 mg/dL (7-18)
--- NOTE | 2019-02-09 07:15 | NUR ---
HAND HOSE CUTTER OPENING NOTES RECEIVED PATIENT RESTING COMFORTABLY IN BED. HE IS A0X4, HAS 2L OF OXYGEN FLOWING VIA NASAL CANULA. DOES NOT SHOW ANY S/SX OF DISTRESS OR SOB. 20G SALINE LOCK ON LEFT AC, RUNNING NS AT 125 ML/HR. SAFETY MEASURES IMPLEMENTED, BED IN LOWEST AND LOCKED POSITION, CALL LIGHT WITHIN REACH. WILL CONTINUE TO MONITOR FOR ANY CHANGES.
[2019-02-09 07:21] LABS: APPEARANCE,URINE CLEAR (CLEAR); BILIRUBIN,URINE NEGATIVE (NEGATIVE); BLOOD, URINE NEGATIVE Ery/uL (NEGATIVE); COLOR,URINE YELLOW (YELLOW); KETONES,URINE NEGATIVE (NEGATIVE); LEUKOCYTE ESTERASE ,URINE NEGATIVE (NEGATIVE); NITRITE, URINE NEGATIVE (NEGATIVE); PH,URINE 6.5 (5.0-8.0); PROTEIN,URINE NEGATIVE (NEGATIVE); UGLUCOSE NEGATIVE (NEGATIVE); UROBILINOGEN,URINE 0.2 EU/dL (0.2)
[2019-02-09] MEDS: ACETAMINOPHEN 325 MG TABLET PO PRN ×2 (07:35→18:00)
[2019-02-09] MEDS: PANTOPRAZOLE 40 MG TABLET.DR PO SCH (07:50)
[2019-02-09] MEDS: LEVOTHYROXINE SODIUM 75 MCG TABLET PO SCH (07:50)
[2019-02-09] MEDS: TAMSULOSIN 0.4 MG CAP.SR.24H PO SCH (08:46)
[2019-02-09] MEDS: ESCITALOPRAM OXALATE (10 MG) 10 MG TABLET PO SCH (08:47)
[2019-02-09] MEDS: QUETIAPINE FUMARATE 25 MG TABLET PO SCH ×2 (08:47→21:15)
[2019-02-09] MEDS: AMLODIPINE BESYLATE 2.5 MG TABLET PO SCH (08:47)
[2019-02-09] MEDS: HYDROGEL DRESSING 90 GM TUBE TP SCH (08:48)
[2019-02-09] MEDS: AMIODARONE HCL 200 MG TABLET PO SCH (08:51)
--- NOTE | 2019-02-09 09:00 | NUR ---
RUBBER TRIMMER NOTES 0900 AMIODARONE WAS HELD BECAUSE PATIENT'S HEART RATE WAS 56. BELLOW THE THRESHOLD. WILL CONTINUE TO MONITOR FOR ANY CHANGES.
[2019-02-09] MEDS: POTASSIUM CHLORIDE 20 MEQ TAB.PRT.SR PO SCH ×3 (09:51→12:04)
[2019-02-09] MEDS ORDERED: LORAZEPAM 1 MG TABLET PO PRN (13:00)
[2019-02-09] MEDS: hydrALAZINE HCL IV 20 MG VIAL IV PRN (15:56)
--- NOTE | 2019-02-09 16:00 | NUR ---
RN NOTES BLACKSMITH APPRENTICE REPORTED BLOOD PRESSURE AT 170/100 MMHG USING AUTOMATIC CUFF, RECHECK BLOOD PRESSURE AT 170/110MMHG. CALLED Oliver PHILLIPS DNP TO INFORM ABOUT THE SITUATION AND ASKED IF ITS OK TO GIVE HYDRALAZINE IV PRN FOR >160MMHG. PER MERCEDES PHILLIPS OKAY. MEDICATION GIVEN ORDERED
[2019-02-09] MEDS: WARFARIN SODIUM 2 MG TABLET PO SCH (17:03)
--- NOTE | 2019-02-09 17:30 | NUR ---
RN NOTES BLOOD PRESSURE RECHECK AT THIS TIME AND WAS NOTED AT 130/86MMHG. HR AT 61BPM.
--- NOTE | 2019-02-09 19:01 | NUR ---
RN CLOSING NOTES PATIENT IS RESTING IN BED COMFORTABLY, SHOWS NO SIGNS OF DISTRESS. SIDE RAILS UP X2, BED IN LOWEST AND LOCKED POSITION, CALL LIGHT WITHIN REACH. WILL ENDORSE TO NIGHTSHIFT NURSE
--- NOTE | 2019-02-09 19:30 | NUR ---
FISHERIES DIVER RECEIVE PT IN BED A/O X 3, SR 66 IN THE TELE MONITOR. STABLE, RESPIRATIONS EVEN AND UNLABORED, SAFETY MEASURES IN PLACE. WILL CONTINUE TO MONITOR
[2019-02-09] MEDS: TEMAZEPAM 15 MG CAPSULE PO PRN (21:15)
[2019-02-09] MEDS: DOXAZOSIN MESYLATE (1 MG) 1 MG TABLET PO SCH (21:15)
[2019-02-10] VITALS: BP 144/82
[2019-02-10 04:00] VITALS: BP 133/84
[2019-02-10] MEDS: IV NS 0.9% 1,000 ML IV PRN (05:48)
--- NOTE | 2019-02-10 06:15 | NUR ---
TOE FORMER ASLEEP AND EASILY AWAKEN. RESPIRATIONS EVEN AND UNLABORED, STABLE AND NOT IN DISTRESS, ON CARDIAC MONITORING WITH READING OF SR 60 IN THE TELE MONITOR. KEPT CLEAN AND DRY AND COMFORTABLE. NEEDS ATTENDED AND ANTICIPATED. NURSING CARE RENDERED, ASSISTED REPOSITION EVERY 2 HOURS. OFFLOAD HEELS AND ELBOWS AT ALL TIMES. SAFETY MEASURES AT ALL TIMES. ENDORSE TO THE NEXT SHIFT.
[2019-02-10 06:30] LABS: ALANINE AMINOTRANSFERASE 11 U/L (12-78); ALBUMIN 2.7 g/dL (3.4-5.0); ALKALINE PHOSPHATASE 60 U/L (46-116); ASPARTATE AMINOTRANSFERASE 10 U/L (15-37); BILIRUBIN,TOTAL 0.3 mg/dL (0.2-1.0); CALCIUM, SERUM 9.1 mg/dL (8.5-10.1); CARBON DIOXIDE 27 mmol/L (21-32); CHLORIDE 109 mmol/L (98-107); GLUCOSE 93 mg/dL (74-106); MAGNESIUM 1.9 mg/dL (1.8-2.4); PHOSPHORUS 2.8 mg/dL (2.5-4.9); POTASSIUM 4.1 mmol/L (3.5-5.1); SODIUM SERUM 142 mmol/L (136-145); TOTAL PROTEIN, SERUM 5.6 g/dL (6.4-8.2); UREA NITROGEN, BLOOD 16 mg/dL (7-18)
[2019-02-10 06:32] LABS: BASOPHILS % (AUTO) 0.3 % (0.0-2.0); HEMATOCRIT 33 % (39-51); HEMOGLOBIN 11.1 g/dL (13.5-17.5); LYMPHOCYTES # (AUTO) 1.2 /CMM (0.8-4.8); LYMPHOCYTES % (AUTO) 20.1 % (20.0-44.0); MEAN CORPUSCULAR HGB CONC 34 g/dl (31.0-36.0); MEAN CORPUSCULAR VOLUME 83 fL (80-96); MONOCYTES # (AUTO) 0.6 /CMM (0.1-1.30); MONOCYTES % (AUTO) 9.5 % (2.0-12.0); NEUTROPHILS # (AUTO) 4.2 /CMM (1.8-8.9); NEUTROPHILS % (AUTO) 68.1 % (43.0-81.0); PLATELET COUNT (AUTO) 171 /CMM (150-450); RED BLOOD CELL COUNT(AUTO) 3.99 MIL/uL (4.5-6.0); WHITE BLOOD COUNT (AUTO) 6.2 K/uL (4.3-11.0)
--- NOTE | 2019-02-10 07:05 | NUR ---
MONITOR TECH OPENING NOTES RECEIVED PT LYING ON BED.ALERT/ORIENTED X3.ON TELE HR IS 67 WITH SR.ON NC 2LPM O2 CONTINUOUSLY,NO SOB AND ACUTE DISTRESS NOTED.PT IS CONTINENT AND NEED MINIMUM ASSISTANCE.IV LINE IS ON LEFT AC G20,WITH IV NS@125ML/HR IS RUNNING.IV SITE IS CLEAN,DRY AND INTACT.NO INFILTRATION NOTED.BED IS IN LOW POSITION AND LOCKED.CALL LIGHT IS WITHIN REACH.WILL CONTINUE TO MONITOR THE PT CLOSELY AND NIGHT NURSE MENTION ABOUT PENDING ORTHOSTATIC BP CHECKING.
[2019-02-10] MEDS: PANTOPRAZOLE 40 MG TABLET.DR PO SCH (07:50)
[2019-02-10] MEDS: LEVOTHYROXINE SODIUM 75 MCG TABLET PO SCH (07:51)
[2019-02-10 08:00] VITALS: BP_SYST 110; BP_SYST 147; BP_DIAS 100; BP_DIAS 70
[2019-02-10] MEDS: QUETIAPINE FUMARATE 25 MG TABLET PO SCH (08:37)
[2019-02-10] MEDS: TAMSULOSIN 0.4 MG CAP.SR.24H PO SCH (08:37)
[2019-02-10] MEDS: ESCITALOPRAM OXALATE (10 MG) 10 MG TABLET PO SCH (08:37)
[2019-02-10] MEDS: AMIODARONE HCL 200 MG TABLET PO SCH (08:37)
[2019-02-10 09:45] VITALS: BP 110/70
[2019-02-10] MEDS: HYDROGEL DRESSING 90 GM TUBE TP SCH (10:25)
[2019-02-10 12:00] VITALS: BP 100/80
--- NOTE | 2019-02-10 14:30 | NUR ---
MS RN NOTES WE ARE TRYING TO MAKE AMBULATE THE PT, PER PT HE SAID HE FEELS WEAK AND WANTS TO SIT ON THE BED.PT LEANDRAAL ORDERED FOR ENCOURAGE TO AMBULATE.
[2019-02-10 16:00] VITALS: BP 115/70
[2019-02-10] MEDS: ACETAMINOPHEN 325 MG TABLET PO PRN (16:44)
[2019-02-10] MEDS: WARFARIN SODIUM 2 MG TABLET PO SCH (16:47)
--- NOTE | 2019-02-10 18:30 | NUR ---
MS RN CLOSING NOTES PT IS DISCHARGED TO HOME WITH ZEV ABDI.ALL THE DISCHARGE MEDICATIONS AND FOLLOW UP APPOINTMENT IS DISCUSSED WITH PT AT BEDSIDE,VERBALIZED UNDERSTOOD.IV LINE FROM LEFT AC G20 IS REMOVED.NO BLEEDING NOTED.ON ROOM AIR,TOLERATING WELL.NO SOB AND ACUTE DISTRESS NOTED.SKIN ASSESSMENT IS DONE AND PICTURE HAS TAKEN.VITAL SIGNS CHECKED AND RECORDED.PT TRANSFERRED TO [facility] VIA WHEELCHAIR WITH CODING CLERKS SUPERVISOR.NO COMPLICATIONS NOTED.
== END 2019-02-10 18:26 | disposition home or self-care (01) | DRG 640 ==
LOC: ER 11:18 → TELE1 13:35 → MEDSG1 02-10 10:19
PROVIDERS: ADMIT Hospitalist; ATTEND Hospitalist
DX: E86.9 Volume depletion, unspecified (principal); N17.0 Acute kidney failure with tubular necrosis; J98.11 Atelectasis; E86.0 Dehydration; E78.5 Hyperlipidemia, unspecified; E66.9 Obesity, unspecified; E03.9 Hypothyroidism, unspecified; K21.9 Gastro-esophageal reflux disease without esophagitis; K27.9 Peptic ulcer, site unspecified, unspecified as acute or chronic, without hemorrhage or perforation; I10 Essential (primary) hypertension; I34.1 Nonrheumatic mitral (valve) prolapse; F41.9 Anxiety disorder, unspecified; N40.0 Benign prostatic hyperplasia without lower urinary tract symptoms; I73.9 Peripheral vascular disease, unspecified; Z68.30 Body mass index [BMI] 30.0-30.9, adult; Z95.2 Presence of prosthetic heart valve; Z87.11 Personal history of peptic ulcer disease; Z82.49 Family history of ischemic heart disease and other diseases of the circulatory system; Z79.01 Long term (current) use of anticoagulants; Z98.890 Other specified postprocedural states; Z79.899 Other long term (current) drug therapy; T50.905A Adverse effect of unspecified drugs, medicaments and biological substances, initial encounter; Y92.9 Unspecified place or not applicable
CPT/HCPCS: 36415; 71045-TC; 80048-TC; 80053-TC; 80061-TC; 81000-TC; 82728-TC; 83540-TC; 83735-TC; 83880; 84100-TC; 84439-TC; 84443-TC; 84484-TC; 85025-TC; 85610-TC; 87081-TC; 87086-TC; 97116-TC; 97530-TC; A6248; G0378; J0360; J7030

== ENCOUNTER 2019-06-22 22:27 | Emergency (ER) | payer MEDICARE, BC ==
[~2019-06-22] VITALS: Ht 170.2 cm; Wt 94.8 kg
[~2019-06-22 22:27] MED LIST changes: +AMIO200T4 PO; -CLON0.5T12 PO; -DICY10CA13 PO; -IRBE300T19 PO; +PANT40TA4 PO; -TRIA1CAP2 PO; -VALS320T16 PO; +WARF4TAB41 PO
--- NOTE | 2019-06-22 22:50 | NUR ---
RECEIVED PATIENT WITH COMPLAINTS OF COUGH SINCE MON, WITH MODERATE AMOUNT, WHITE SPUTUM. PATIENT LIVES WITH WITH SIMILAR SYMPTOMS. PER PATIENT HE RECEIVED FLU SHOT 2 MONTHS AGO.
--- NOTE | 2019-06-23 01:23 | NUR ---
DISCHARGE INSTRUCTIONS GIVEN TO PATIENT. INTRUCTED TO GO BACK TO ER OR CALL 911 FOR WORSENING CONDITION. VERBALIZED UNDERSTANDING. DISCHARGE PAPER SIGNED BY THE PATIENT. AMBULATORY WITH WALKER. LEAVED THE FACILITY AT THIS TIME WITH THE .
[2019-06-23 01:24] VITALS: BP 121/88
== END 2019-06-23 01:25 | disposition home or self-care (01) ==
LOC: ER 22:28
DX: J06.9 Acute upper respiratory infection, unspecified (principal); I10 Essential (primary) hypertension; R55 Syncope and collapse; E78.5 Hyperlipidemia, unspecified; E03.9 Hypothyroidism, unspecified; Z95.2 Presence of prosthetic heart valve; Z87.11 Personal history of peptic ulcer disease; Z88.0 Allergy status to penicillin; Z79.01 Long term (current) use of anticoagulants; Z79.899 Other long term (current) drug therapy
CPT/HCPCS: 71046

== ENCOUNTER 2019-07-13 13:53 | Inpatient (IN) | payer MEDICARE, BC ==
[~2019-07-13] VITALS: Ht 172.7 cm; Wt 94.3 kg
--- NOTE | 2019-07-13 14:20 | NUR ---
RIGHT UPPER THIGH BRUISING X 1 DAY, THIGH PAIN X 6 DAYS. PATIENT A/OX4, BREATHING EVEN AND UNLABORED, NOS OB NOTED, ATTACHED TO THE PAYROLL AND BENEFITS ASSISTANT. NO DISTRESS NOTED.
[2019-07-13] MEDS ORDERED: HYDROCODONE/APAP 5/325MG 1 EACH TABLET PO ONE (15:00)
[2019-07-13 15:16] LABS: BASOPHILS % (AUTO) 0.3 % (0.0-2.0); EOSINOPHILS % (AUTO) 0.6 % (0.0-6.0); HEMATOCRIT 26 % (39-51); HEMOGLOBIN 8.5 g/dL (13.5-17.5); LYMPHOCYTES # (AUTO) 0.9 /CMM (0.8-4.8); LYMPHOCYTES % (AUTO) 11.4 % (20.0-44.0); MEAN CORPUSCULAR HGB CONC 33 g/dl (31.0-36.0); MEAN CORPUSCULAR VOLUME 85 fL (80-96); MONOCYTES # (AUTO) 0.8 /CMM (0.1-1.30); MONOCYTES % (AUTO) 9.3 % (2.0-12.0); NEUTROPHILS # (AUTO) 6.5 /CMM (1.8-8.9); NEUTROPHILS % (AUTO) 78.4 % (43.0-81.0); PLATELET COUNT (AUTO) 238 /CMM (150-450); RED BLOOD CELL COUNT(AUTO) 3.04 MIL/uL (4.5-6.0); WHITE BLOOD COUNT (AUTO) 8.2 K/uL (4.3-11.0)
[2019-07-13] MEDS ORDERED: HYDROCODONE/APAP 5/325MG 1 EACH TABLET ONE (15:20)
[2019-07-13] MEDS ORDERED: IOHEXOL-300 100 ML VIAL IV ONE (15:20)
[2019-07-13] MEDS ORDERED: IV NS 0.9% 250 ML IV ONE (15:20)
[2019-07-13] MEDS ORDERED: CT SWABBABLE VALVE TRANS SET 1 EA INFUS.SET MC ONE (15:20)
[2019-07-13 15:26] LABS: CALCIUM, SERUM 9.8 mg/dL (8.5-10.1); CREATININE 1.1 mg/dL (0.6-1.3); POTASSIUM 3.7 mmol/L (3.5-5.1)
[2019-07-13 15:32] LABS: BILIRUBIN,DIRECT 0.2 mg/dL (0.0-0.2); BILIRUBIN,TOTAL 1.1 mg/dL (0.2-1.0); TOTAL PROTEIN, SERUM 6.2 g/dL (6.4-8.2)
--- NOTE | 2019-07-13 16:42 | NUR ---
JANNA FRANKLIN. CALLED NURSING UMBRELLA MENDER FOR BED.
--- NOTE | 2019-07-13 16:44 | NUR ---
BED ASSIGNMENT 205.
--- NOTE | 2019-07-13 17:47 | NUR ---
CALLED [facility] TO FOLLOW UP WITH CT SCAN RESULT
[2019-07-13 17:57] LABS: THYROID STIMULATING HORMONE 2.093 uIU/mL (0.358-3.74)
[2019-07-13 18:07] LABS: MAGNESIUM 1.8 mg/dL (1.8-2.4); PHOSPHORUS 2.4 mg/dL (2.5-4.9)
--- NOTE | 2019-07-13 18:26 | NUR ---
PATIENT TRANSFERRED TO ROOM 205-2, IN STABLE CONDITION. NO DISTRESS NOTED.
[2019-07-13] MEDS ORDERED: ONDANSETRON HCL/PF 4 MG/2 ML VIAL IVP PRN (18:30)
[2019-07-13] MEDS ORDERED: MAGNESIUM HYDROXIDE 30 ML UDC PO PRN (18:30)
[2019-07-13] MEDS ORDERED: Z GUARD REMEDY 2 OZ OINT TP PRN (18:30)
[2019-07-13] MEDS ORDERED: MAG HYDROX/AL HYDROX/SIMETH 30 ML UDC PO PRN (18:30)
[2019-07-13 18:40] VITALS: BP 155/100
[2019-07-13 18:49] VITALS: BP 155/100
[2019-07-13] MEDS: QUETIAPINE FUMARATE 25 MG TABLET PO SCH (18:56)
--- NOTE | 2019-07-13 19:30 | NUR ---
MS ARAIZA OPENING NOTES: RECEIVED PT ON ROOM AIR AND IS TOLERATING WELL. NO SOB NOTED. NO S/S OF DISTRESS. PT HAS IV ON R AC #18G AND IS PATENT AND INTACT. CURRENTLY H/L. BED KEPT IN LOW, LOCKED POSITION, AND SIDE RAILS X 2UP. NO SOB NOTED. PT COMPLAINING OF R THIGH PAIN. WILL CONTINUE TO MONITOR PT. Addendum: 07/14/19 at 0213 by VAIBHAV VILLALOBOS RN PT REFUSING TO CHANGE IN GOWN.
[2019-07-13 20:00] VITALS: BP 149/85
[2019-07-13] MEDS: HYDROCODONE/APAP 5/325MG 1 EACH TABLET PO PRN (20:15)
--- NOTE | 2019-07-13 20:17 | NUR ---
MS RN NOTES: PT COMPLAINING IF 8/10 R THIGH PAIN. PT WAS ADMINISTERED NORCO 5 PO FOR HIS ACHY PAIN. WILL CONTINUE TO MONITOR.
--- NOTE | 2019-07-13 20:22 | NUR ---
MS RN NOTES: SPOKE WITH DR. TO. INFORMED HIM THAT PT IS REQUESTING FOR SLEEPING PILL AND AMBIEN DOES NOT WORK FOR HIM. GOT ORDER FOR RESTORIL 7.5MG PO QHS ONE TIME ORDER ONLY. WILL CONTINUE TO MONITOR.
--- NOTE | 2019-07-13 21:58 | NUR ---
MS RN NOTES: PT REQUESTING FOR SLEEPING PILL. PT ADMINISTERED RESTORIL 7.5MG PO ONE TIME ORDER ONLY
[2019-07-13] MEDS ORDERED: TEMAZEPAM 7.5 MG CAPSULE PO ONE (22:00)
[2019-07-14 01:15] VITALS: BP_SYST 103; BP_SYST 104; BP_DIAS 61; BP_DIAS 73
[2019-07-14] MEDS: HYDROCODONE/APAP 5/325MG 1 EACH TABLET PO PRN ×4 (01:20→21:27)
--- NOTE | 2019-07-14 01:24 | NUR ---
MS RN NOTES: PT STILL COMPLAINING OF RIGHT THIGH PAIN 8/10 PAIN. PT WAS ADMINISTERED NORCO 5 PO. WILL CONTINUE TO MONITOR.
--- NOTE | 2019-07-14 07:20 | NUR ---
MS RN OPENING NOTES RECEIVED PT IN BED. AWAKE, A/OX3. PT TOLERATING RA, WITH NO ACUTE RESPIRATORY DISTRESS. PT DENIES ANY PAIN OR DISCOMFORT AT THIS TIME. PT DENIES ANY QUESTIONS OR CONCERNS WELL. PIV TO RAC G20, FLUSHED WITH NS, INTACT AND OPERATIONAL. PT KEPT COMFORTABLE. CALL LIGHT KEPT WITHIN REACH. PT'S BED IN LOWEST LOCKED POSITION WITH SR X3. WILL CONTINUE PLAN OF CARE.
--- NOTE | 2019-07-14 07:21 | NUR ---
MS RN CLOSING NOTES: ALL NEEDS WERE ATTENDED AND ANTICIPATED FOR. IV REMAINS INTACT. CURRENTLY H/L. BED KEPT IN LOW, LOCKED POSITION, AND SIDE RAILS X 2UP. BED ALARM ACTIVATED. PT ASLEEP AND RESTING COMFORTABLY AT THIS TIME. ENDORSED TO AM NURSE FOR YASMINE.
[2019-07-14 07:32] LABS: BASOPHILS % (AUTO) 0.3 % (0.0-2.0); EOSINOPHILS % (AUTO) 2.8 % (0.0-6.0); HEMATOCRIT 25 % (39-51); HEMOGLOBIN 8.2 g/dL (13.5-17.5); LYMPHOCYTES # (AUTO) 1.2 /CMM (0.8-4.8); LYMPHOCYTES % (AUTO) 17.5 % (20.0-44.0); MEAN CORPUSCULAR HGB CONC 34 g/dl (31.0-36.0); MEAN CORPUSCULAR VOLUME 84 fL (80-96); MONOCYTES # (AUTO) 0.7 /CMM (0.1-1.30); MONOCYTES % (AUTO) 11.1 % (2.0-12.0); NEUTROPHILS # (AUTO) 4.6 /CMM (1.8-8.9); NEUTROPHILS % (AUTO) 68.3 % (43.0-81.0); PLATELET COUNT (AUTO) 214 /CMM (150-450); RED BLOOD CELL COUNT(AUTO) 2.92 MIL/uL (4.5-6.0); WHITE BLOOD COUNT (AUTO) 6.7 K/uL (4.3-11.0)
--- NOTE | 2019-07-14 07:40 | NUR ---
MS RN NOTES SEEN AND EVALUATED BY KR, MADE AWARE OF INR RESULT OF 8.13, NO ORDERS NOTED AT THIS TIME.
[2019-07-14] MEDS: ACETAMINOPHEN 325 MG TABLET PO PRN (07:52)
[2019-07-14] MEDS: PANTOPRAZOLE 40 MG TABLET.DR PO SCH (07:52)
[2019-07-14] MEDS: LEVOTHYROXINE SODIUM 75 MCG TABLET PO SCH (07:52)
[2019-07-14 08:00] LABS: ALBUMIN 2.7 g/dL (3.4-5.0); BILIRUBIN,TOTAL 0.9 mg/dL (0.2-1.0); CALCIUM, SERUM 9.4 mg/dL (8.5-10.1); CREATININE 1.1 mg/dL (0.6-1.3); PHOSPHORUS 3.2 mg/dL (2.5-4.9); POTASSIUM 3.5 mmol/L (3.5-5.1); TOTAL PROTEIN, SERUM 5.8 g/dL (6.4-8.2)
--- NOTE | 2019-07-14 08:30 | NUR ---
MS RN NOTES PT REFUSED TO DO ORTHOSTATIC BP. PT STATED TOO WEAK TO STAND UP AND DOESN'T WANT TO TRY AT THE MOMENT. KR AWARE, AWAITING FOR PT EVAL.
[2019-07-14] MEDS: AMIODARONE HCL 200 MG TABLET PO SCH (08:31)
[2019-07-14] MEDS: ESCITALOPRAM OXALATE (10 MG) 10 MG TABLET PO SCH (08:31)
[2019-07-14 09:12] VITALS: BP_SYST 108; BP_SYST 138; BP_DIAS 64; BP_DIAS 67
--- NOTE | 2019-07-14 10:30 | NUR ---
MS RN NOTES PT WENT DOWN TO DO CT ABD.
--- NOTE | 2019-07-14 10:47 | NUR ---
MS RN NOTES PT CAME BACK FROM CT. AWAITING FOR RESULTS.
[2019-07-14 16:00] VITALS: BP 129/71
[2019-07-14] MEDS: QUETIAPINE FUMARATE 25 MG TABLET PO SCH (18:23)
--- NOTE | 2019-07-14 19:01 | NUR ---
MS RN CLOSING NOTES PT REMAINS IN BED. AWAKE, A/OX3. PT TOLERATING RA, WITH NO ACUTE RESPIRATORY DISTRESS. PT DENIES ANY PAIN OR DISCOMFORT AT THIS TIME. PIV TO RAC G18, FLUSHED WITH NS, INTACT AND OPERATIONAL. PT KEPT COMFORTABLE. ALL NEEDS AND ATTENDED. CALL LIGHT KEPT WITHIN REACH. PT'S BED IN LOWEST LOCKED POSITION WITH SR X3. WILL ENDORSE TO INCOMING NIGHT NURSE FOR YASMINE.
--- NOTE | 2019-07-14 19:15 | NUR ---
MS RN OPENING NOTES REPORT RECIEVED FROM LEDY ARAIZA. PT IN BED. AWAKE, A/OX3. PT TOLERATING RA, IN NO APPARENT RESPIRATORY DISTRESS BREATHING EVEN AND UNLABORED. PT DENIES ANY PAIN OR DISCOMFORT AT THIS TIME. PIV TO RAC G18, FLUSHED WITH NS, INTACT AND OPERATIONAL. CALL LIGHT WITHIN REACH. PT IN LOWEST LOCKED POSITION WITH SR X3. WILL CONT TO MONITOR.
[2019-07-14 20:00] VITALS: BP 114/75
--- NOTE | 2019-07-14 21:45 | NUR ---
PATIENT REQUESTING SLEEPING PILL. SPOKE WITH DR. CHIANG NEW ORDER FOR RESTORIL 7.5MG HS PRN RECIEVED.
[2019-07-14] MEDS: TEMAZEPAM 7.5 MG CAPSULE PO PRN (22:38)
[2019-07-15] MEDS: HYDROCODONE/APAP 5/325MG 1 EACH TABLET PO PRN ×3 (05:28→22:39)
[2019-07-15 06:14] LABS: BASOPHILS % (AUTO) 0.2 % (0.0-2.0); EOSINOPHILS % (AUTO) 2.8 % (0.0-6.0); HEMATOCRIT 25 % (39-51); HEMOGLOBIN 8.4 g/dL (13.5-17.5); LYMPHOCYTES # (AUTO) 1.2 /CMM (0.8-4.8); LYMPHOCYTES % (AUTO) 18.5 % (20.0-44.0); MEAN CORPUSCULAR HGB CONC 33 g/dl (31.0-36.0); MEAN CORPUSCULAR VOLUME 85 fL (80-96); MONOCYTES # (AUTO) 0.6 /CMM (0.1-1.30); MONOCYTES % (AUTO) 9.9 % (2.0-12.0); NEUTROPHILS # (AUTO) 4.5 /CMM (1.8-8.9); NEUTROPHILS % (AUTO) 68.6 % (43.0-81.0); PLATELET COUNT (AUTO) 229 /CMM (150-450); RED BLOOD CELL COUNT(AUTO) 2.96 MIL/uL (4.5-6.0); WHITE BLOOD COUNT (AUTO) 6.5 K/uL (4.3-11.0)
[2019-07-15 06:16] LABS: ALBUMIN 2.7 g/dL (3.4-5.0); BILIRUBIN,TOTAL 0.8 mg/dL (0.2-1.0); CALCIUM, SERUM 9.4 mg/dL (8.5-10.1); POTASSIUM 3.5 mmol/L (3.5-5.1); TOTAL PROTEIN, SERUM 5.8 g/dL (6.4-8.2)
--- NOTE | 2019-07-15 06:39 | NUR ---
MS RN CLOSING PM NOTES PT IN BED. WITH EYES CLOSED PT TOLERATING RA, IN NO APPARENT RESPIRATORY DISTRESS BREATHING EVEN AND UNLABORED. PT MEDICATED EARLIER THIS AM FOR PAIN. PIV TO RAC G18, INTACT WITH NO S/S OF INFILTRATION. CALL LIGHT WITHIN REACH. PT IN LOWEST LOCKED POSITION WITH SR X3. BED ALARM IS ACTIVE.
--- NOTE | 2019-07-15 07:20 | NUR ---
RN OPENING NOTES RECEIVED PATIENT IN BED RESTING. A/OX3, ABLE TO MAKE NEEDS KNOWN. NOT IN NAY FORM OF DISTRESS. NO SOB. DENIED PAIN OR DISCOMFORT AT THIS TIME. IV ACCESS INTACT AND PATENT. NEEDS ATTENDED. KEPT PATIENT SAFE AND COMFORTABLE. BED IN LOW/LOCKED POSITION, SIDERAILS UPX 2, CALL LIGHT IN REACH. WILL CONT TO MONITOR ACCORDINGLY.
[2019-07-15 08:00] VITALS: BP_SYST 90; BP_SYST 94; BP_DIAS 60; BP_DIAS 62
[2019-07-15] MEDS: AMIODARONE HCL 200 MG TABLET PO SCH (09:00)
[2019-07-15] MEDS: PANTOPRAZOLE 40 MG TABLET.DR PO SCH (09:07)
[2019-07-15] MEDS: LEVOTHYROXINE SODIUM 75 MCG TABLET PO SCH (09:07)
[2019-07-15] MEDS: ESCITALOPRAM OXALATE (10 MG) 10 MG TABLET PO SCH (09:08)
[2019-07-15] MEDS: ACETAMINOPHEN 325 MG TABLET PO PRN ×2 (09:11→15:18)
[2019-07-15 16:00] VITALS: BP 128/93
--- NOTE | 2019-07-15 19:40 | NUR ---
RN CLOSING NOTES PATIENT IN STABLE CONDITION. ALL NEEDS ATTENDED AND PROVIDED. ALL DUE MEDS GIVEN ORDERED. KEPT PATIENT SAFE AND COMFORTABLE. BED IN LOW/LOCKED POSITION, SIDERAILS UPX2, CALL LIGHT IN REACH. ENDORSED TO NIGHT RN FOR YASMINE.
--- NOTE | 2019-07-15 19:55 | NUR ---
MS RN NOTE: PATIENT RESTING IN BED, NO ACUTE DISTRESS NOTED. BREATHING EVEN AND UNLABORED, NO SOB NOTED. IV TO RAC IN PLACE. BED LOCKED AND IN LOWEST POSITION, CALL LIGHT IN REACH. WILL CONTINUE TO MONITOR.
[2019-07-15 20:00] VITALS: BP 130/69
[2019-07-15] MEDS: TEMAZEPAM 7.5 MG CAPSULE PO PRN (21:28)
[2019-07-15] MEDS: QUETIAPINE FUMARATE 25 MG TABLET PO SCH (21:28)
--- NOTE | 2019-07-15 21:30 | NUR ---
MS RN NOTE: PATIENT REQUEST FOR SLEEPING MEDICATION. RESTORIL 7.5MG 1 CAPSULE ORAL GIVEN PER MD ORDER. WILL CONTINUE TO MONITOR.
--- NOTE | 2019-07-15 22:45 | NUR ---
MS RN NOTE: PATIENT COMPLAINS OF BACK PAIN 01/16, NORCO 5/325MG 1 TAB ORAL GIVEN PER MD ORDER. WILL CONTINUE TO MONITOR.
[2019-07-16] MEDS: HYDROCODONE/APAP 5/325MG 1 EACH TABLET PO PRN ×2 (06:06→16:24)
--- NOTE | 2019-07-16 06:35 | NUR ---
MS RN NOTE: PATIENT RESTING IN BED, NO ACUTE DISTRESS NOTED. BREATHING EVEN AND UNLABORED, NO SOB NOTED. IV TO RAC IN PLACE. PATIENT COMPLAINS OF BACK PAIN /, NORCO 5/325MG 1 TAB ORAL GIVEN PER MD ORDER. BED LOCKED AND IN LOWEST POSITION, CALL LIGHT IN REACH. WILL ENDORSE TO DAY NURSE TO CONTINUE WITH PLAN OF CARE.
[2019-07-16 08:00] VITALS: BP 142/86
--- NOTE | 2019-07-16 08:00 | NUR ---
MS RN OPENING NOTES RECEIVED PT IN BED. AWAKE, ALERT ANG ORIENTED X3-4. CALM AND COOPERATIVE AND PLEASANT. NO CARDIAC OR RESPIRATORY DISTRESS NOTED. BREATHING IS EVEN AND UNLABORED. BREATH SOUNDS CLEAR. FALL RISK PRECAUTIONS IN PLACE, BED LOCKED AND IN LOW POSITION. CONTINENT OF B/B. IV SITE NOTED ON R AC 18G. NO S/S OF INFECTION OR INFILTRATION NOTED. PT IS FOR PLANNED D/C TODAY. VS NOTED AT 142/86, 61, 20, 98.3, 96%.
[2019-07-16] MEDS: PANTOPRAZOLE 40 MG TABLET.DR PO SCH (08:16)
[2019-07-16] MEDS: LEVOTHYROXINE SODIUM 75 MCG TABLET PO SCH (08:16)
[2019-07-16] MEDS: AMIODARONE HCL 200 MG TABLET PO SCH (08:17)
[2019-07-16] MEDS: ESCITALOPRAM OXALATE (10 MG) 10 MG TABLET PO SCH (08:18)
[2019-07-16 09:13] LABS: BASOPHILS % (AUTO) 0.2 % (0.0-2.0); EOSINOPHILS % (AUTO) 2.9 % (0.0-6.0); HEMATOCRIT 28 % (39-51); HEMOGLOBIN 9.2 g/dL (13.5-17.5); LYMPHOCYTES # (AUTO) 1.1 /CMM (0.8-4.8); LYMPHOCYTES % (AUTO) 16.2 % (20.0-44.0); MEAN CORPUSCULAR HGB CONC 33 g/dl (31.0-36.0); MEAN CORPUSCULAR VOLUME 86 fL (80-96); MONOCYTES # (AUTO) 0.4 /CMM (0.1-1.30); MONOCYTES % (AUTO) 6.3 % (2.0-12.0); NEUTROPHILS % (AUTO) 74.4 % (43.0-81.0); PLATELET COUNT (AUTO) 238 /CMM (150-450); RED BLOOD CELL COUNT(AUTO) 3.23 MIL/uL (4.5-6.0); WHITE BLOOD COUNT (AUTO) 6.7 K/uL (4.3-11.0)
[2019-07-16 09:30] LABS: CALCIUM, SERUM 9.4 mg/dL (8.5-10.1); PHOSPHORUS 2.4 mg/dL (2.5-4.9); POTASSIUM 3.7 mmol/L (3.5-5.1)
--- NOTE | 2019-07-16 11:14 | NUR ---
TAKEN TO EZEQUIEL PT TAKEN FOR COLONOSCOPY Addendum: 07/16/19 at 1455 by TIARRA MCDONALD RN PLEASE DISREGARD NOTES ABOVE. ENTERED ON INCORRECT PT.
[2019-07-16] MEDS: ACETAMINOPHEN 325 MG TABLET PO PRN (13:35)
[2019-07-16 16:00] VITALS: BP 168/96
[2019-07-16] MEDS: QUETIAPINE FUMARATE 25 MG TABLET PO SCH (17:17)
--- NOTE | 2019-07-16 17:57 | NUR ---
MS RN CLOSING NOTES PT IN BED AWAKE, ALERT AND ORIENTED X3. NO CARDIAC OR RESPIRATORY DISTRESS NOTED. BREATH SOUNDS CLEAR. BREATHING EVEN AND UNLABORED. CONTINENT OF B/B. IV SITE NOTED ON R AC 18G. IV SITE INTACT AND PATENT. NO S/S OF INFECTION OR INFILTRATION NOTED. PT C/O PAIN ON R LEG, ADMINISTERED NORCO 5/325 1 TAB WITH RELIEF.
--- NOTE | 2019-07-16 19:20 | NUR ---
MS RN NOTE RECEIVED PT IN STABLE CONDITION A/O X4, CURRENTLY WATCHING TV. NO SIGNS OF SOB OR ACUTE DISTRESS. NO COMPLAINTS OF PAIN OR N/V. IV IN RAC #18, IN PLACE WITH IV FLUIDS INFUSING. ALL CURRENT NEEDS ATTENDED TO. BED LOW, LOCKED, UPPER RAILS UP AND CALL LIGHT WITHIN REACH. WILL CONT. TO MONITOR.
[2019-07-16] MEDS: TEMAZEPAM 7.5 MG CAPSULE PO PRN (21:08)
[2019-07-16 21:28] VITALS: BP 107/51
[2019-07-17] MEDS: HYDROCODONE/APAP 5/325MG 1 EACH TABLET PO PRN ×3 (05:20→17:27)
--- NOTE | 2019-07-17 06:15 | NUR ---
MS RN NOTE PT REMAINS IN STABLE CONDITION A/O X4, CURRENTLY WATCHING TV. NO SIGNS OF SOB OR ACUTE DISTRESS. NO COMPLAINTS OF PAIN OR N/V. IV IN RAC #18, IN PLACE. ALL CURRENT NEEDS ATTENDED TO. BED LOW, LOCKED, UPPER RAILS UP AND CALL LIGHT WITHIN REACH. WILL CONT. TO MONITOR AND ENDORSE TO NEXT SHIFT FOR YASMINE.
[2019-07-17 06:21] LABS: BASOPHILS % (AUTO) 0.4 % (0.0-2.0); EOSINOPHILS % (AUTO) 2.8 % (0.0-6.0); HEMATOCRIT 26 % (39-51); HEMOGLOBIN 8.7 g/dL (13.5-17.5); LYMPHOCYTES # (AUTO) 1.2 /CMM (0.8-4.8); MEAN CORPUSCULAR HGB CONC 33 g/dl (31.0-36.0); MEAN CORPUSCULAR VOLUME 85 fL (80-96); MONOCYTES # (AUTO) 0.8 /CMM (0.1-1.30); MONOCYTES % (AUTO) 11.1 % (2.0-12.0); NEUTROPHILS # (AUTO) 4.6 /CMM (1.8-8.9); NEUTROPHILS % (AUTO) 67.7 % (43.0-81.0); PLATELET COUNT (AUTO) 239 /CMM (150-450); RED BLOOD CELL COUNT(AUTO) 3.08 MIL/uL (4.5-6.0); WHITE BLOOD COUNT (AUTO) 6.8 K/uL (4.3-11.0)
[2019-07-17 06:35] LABS: CALCIUM, SERUM 9.9 mg/dL (8.5-10.1); CREATININE 0.9 mg/dL (0.6-1.3); MAGNESIUM 1.9 mg/dL (1.8-2.4); PHOSPHORUS 2.4 mg/dL (2.5-4.9)
[2019-07-17] MEDS: LEVOTHYROXINE SODIUM 75 MCG TABLET PO SCH (07:48)
[2019-07-17] MEDS: PANTOPRAZOLE 40 MG TABLET.DR PO SCH (07:48)
--- NOTE | 2019-07-17 08:00 | NUR ---
MS RN OPENING NOTES RECEIVED PT IN BED. AWAKE, ALERT AND ORIENTED X3-4. CALM AND COOPERATIVE AND PLEASANT. NO CARDIAC OR RESPIRATORY DISTRESS NOTED. BREATHING IS EVEN AND UNLABORED. BREATH SOUNDS CLEAR. FALL RISK PRECAUTIONS IN PLACE, BED LOCKED AND IN LOW POSITION. CONTINENT OF B/B. IV SITE NOTED ON R AC 18G. NO S/S OF INFECTION OR INFILTRATION NOTED.PT INR LEVELS IS TRENDING DOWN.
[2019-07-17] MEDS ORDERED: TRAMADOL HCL 50 MG TABLET PO PRN (08:30)
[2019-07-17] MEDS: ESCITALOPRAM OXALATE (10 MG) 10 MG TABLET PO SCH (08:35)
[2019-07-17] MEDS: AMIODARONE HCL 200 MG TABLET PO SCH (08:36)
[2019-07-17] MEDS ORDERED: NEUTRA PHOS 1 POWD.PACKET PO ONE (12:30)
[2019-07-17 16:44] VITALS: BP 139/83
[2019-07-17] MEDS: QUETIAPINE FUMARATE 25 MG TABLET PO SCH (17:27)
--- NOTE | 2019-07-17 18:27 | NUR ---
MS RN CLOSING NOTES PT IN BED. AWAKE, ALERT ANG ORIENTED X3-4. CALM AND COOPERATIVE AND PLEASANT. NO CARDIAC OR RESPIRATORY DISTRESS NOTED. BREATHING IS EVEN AND UNLABORED. BREATH SOUNDS CLEAR. FALL RISK PRECAUTIONS IN PLACE, BED LOCKED AND IN LOW POSITION. CONTINENT OF B/B. IV SITE NOTED ON R AC 18G. NO S/S OF INFECTION OR INFILTRATION NOTED. PT WILL BE DISCHARGED TONIGHT, WILL BE PICKED UP BY AMBULANCE AT 8PM. D/C PACKET COMPLETED. PT WILL BE DISCHARGING TO [facility]. REPORT GIVEN TO FORD ARAIZA AT THE [facility].PT IN STABLE CONDITION
--- NOTE | 2019-07-17 19:30 | NUR ---
MS RN NOTES PATIENT IN BED, AWAKE, ALERT AND ORIENTED X 4. BREATHING EVEN AND UNLABORED ON ROOM AIR. IV ON RAC 18G CLEAN DRY AND INTACT. SHOWS NO SIGNS OF INFILTRATION NO REDNESS. DENIES NO ACUTE RESPIRATORY DISTRESS, NO ACUTE PAIN. SAFETY PRECAUTION IN PLACE. BED IN LOWEST POSITION LOCKED AND CALL LIGHT KEPT WITHIN REACH. WILL CONTINUE TO MONITOR.
[2019-07-17 20:00] VITALS: BP 146/82
--- NOTE | 2019-07-17 20:57 | NUR ---
MS RN NOTES PATIENT IN LEFT WITH AMBULANCE AT 2055. AWAKE, ALERT AND ORIENTED X 4. BREATHING EVEN AND UNLABORED ON ROOM AIR. IV ON RAC 18G REMOVED WITH CATHETER INTACT. ID BAND REMOVED. DENIES NO ACUTE RESPIRATORY DISTRESS, NO ACUTE PAIN. BELONGINGS CHECKLIST COMPLETED AND BELONGINGS GIVEN TO PATIENT.
== END 2019-07-17 20:57 | DRG 555 ==
LOC: ER 13:54 → MEDSG2 16:46
PROVIDERS: ADMIT Internal Medicine; ATTEND Internal Medicine
DX: M79.81 Nontraumatic hematoma of soft tissue (principal); E43 Unspecified severe protein-calorie malnutrition; Y92.89 Other specified places as the place of occurrence of the external cause; E03.9 Hypothyroidism, unspecified; Z95.2 Presence of prosthetic heart valve; T45.515A Adverse effect of anticoagulants, initial encounter; D50.0 Iron deficiency anemia secondary to blood loss (chronic); I10 Essential (primary) hypertension; E78.5 Hyperlipidemia, unspecified; N40.0 Benign prostatic hyperplasia without lower urinary tract symptoms; Z87.11 Personal history of peptic ulcer disease; Z91.81 History of falling; F41.9 Anxiety disorder, unspecified; G47.9 Sleep disorder, unspecified; Z86.19 Personal history of other infectious and parasitic diseases; I48.91 Unspecified atrial fibrillation; F32.9 Major depressive disorder, single episode, unspecified; Z88.0 Allergy status to penicillin; M48.00 Spinal stenosis, site unspecified; Z68.31 Body mass index [BMI] 31.0-31.9, adult; R26.9 Unspecified abnormalities of gait and mobility
CPT/HCPCS: 36415; 73701-TC; 80048-TC; 80053-TC; 80061-TC; 80076-TC; 82728-TC; 83540-TC; 83690-TC; 83735-TC; 84100-TC; 84439-TC; 84443-TC; 85025-TC; 85610-TC; 85730-TC; 87081-TC; 93307-TC; 97110-TC; 97116-TC; 97530-TC; G0378; J7050; Q9967

== ENCOUNTER 2019-12-13 11:20 | Outpatient (CLI) | payer MEDICARE, BC ==
[~2019-12-13 11:20] MED LIST changes: -TAMS-12 PO; -WARF4TAB41 PO
== END 2019-12-13 23:59 | disposition home or self-care (01) ==
LOC: CARD 11:20
PROVIDERS: ATTEND Internal Medicine Interventional Cardiology
DX: M79.661 Pain in right lower leg (principal); M79.662 Pain in left lower leg; M79.89 Other specified soft tissue disorders
CPT/HCPCS: 93970-TC

== ENCOUNTER 2020-01-07 13:54 | Inpatient (IN) | payer MEDICARE, BC ==
[~2020-01-07] VITALS: Ht 172.7 cm; Wt 81.6 kg
[2020-01-07] MEDS ORDERED: IV NS 0.9% 500 ML BAG IV ONE (14:00)
--- NOTE | 2020-01-07 14:00 | NUR ---
patient came in to the er c/o Syncope, called 911 after she was having BM; B/P - 97/66- NS 250 cc BS = 106 mg/dl. On room air, breathing evenly and unlabored. connected to the monitor and pulse ox. kept comfortable, will continue to monitor accordingly.
[2020-01-07 14:26] LABS: BASOPHILS % (AUTO) 0.2 % (0.0-2.0); EOSINOPHILS % (AUTO) 1.2 % (0.0-6.0); HEMATOCRIT 41 % (39-51); HEMOGLOBIN 13.7 g/dL (13.5-17.5); LYMPHOCYTES % (AUTO) 12.2 % (20.0-44.0); MEAN CORPUSCULAR HGB CONC 34 g/dl (31.0-36.0); MEAN CORPUSCULAR VOLUME 92 fL (80-96); MONOCYTES # (AUTO) 0.8 /CMM (0.1-1.30); MONOCYTES % (AUTO) 9.8 % (2.0-12.0); NEUTROPHILS # (AUTO) 6.5 /CMM (1.8-8.9); NEUTROPHILS % (AUTO) 76.6 % (43.0-81.0); PLATELET COUNT (AUTO) 124 /CMM (150-450); RED BLOOD CELL COUNT(AUTO) 4.44 MIL/uL (4.5-6.0); WHITE BLOOD COUNT (AUTO) 8.5 K/uL (4.3-11.0)
[2020-01-07 14:33] LABS: CALCIUM, SERUM 10.2 mg/dL (8.5-10.1); CARBON DIOXIDE 28 mmol/L (21-32); CHLORIDE 105 mmol/L (98-107); CREATININE 1.6 mg/dL (0.6-1.3); GLUCOSE 121 mg/dL (74-106); POTASSIUM 4.3 mmol/L (3.5-5.1); SODIUM SERUM 138 mmol/L (136-145); UREA NITROGEN, BLOOD 30 mg/dL (7-18)
[2020-01-07 14:40] LABS: ALANINE AMINOTRANSFERASE 25 U/L (12-78); ALBUMIN 3.5 g/dL (3.4-5.0); ALKALINE PHOSPHATASE 70 U/L (46-116); ASPARTATE AMINOTRANSFERASE 21 U/L (15-37); BILIRUBIN,DIRECT 0.2 mg/dL (0.0-0.2); BILIRUBIN,TOTAL 0.7 mg/dL (0.2-1.0); TOTAL PROTEIN, SERUM 6.5 g/dL (6.4-8.2)
--- NOTE | 2020-01-07 15:12 | NUR ---
[facility] [phone]
[2020-01-07] MEDS ORDERED: ESCI20TA MT (15:45)
[2020-01-07] MEDS ORDERED: ACET-2605 PO (16:04)
--- NOTE | 2020-01-07 16:27 | NUR ---
report given to Lety ARAIZA for otto
[2020-01-07 17:00] VITALS: BP 155/94
--- NOTE | 2020-01-07 17:00 | NUR ---
Received patient via gurney, awake alert and oriented x3. Breathing unlabored and even on room air saturating above 95%. Afebrile ; BP elevated. IV line to the left AC g 18 , flushing well. PAtient admitted to TELE ; SR HR 62. Patient is week and fall precautions initiated. Skin clean and intact. PAtient oriented to unit and room ; educated to use call light. Admitting MD notified ; awaiting for orders.
--- NOTE | 2020-01-07 17:09 | NUR ---
Note rayne in ED - 01/07/20 at 1711 by GINA Patient discharged to home in stable condition. Written and verbal after care instructions given. Patient verbalizes understanding of instruction.IV removed. Catheter intact and site benign. Pressure and 4x4 applied to site. No bleeding noted.
--- NOTE | 2020-01-07 17:11 | NUR ---
wheeled patient via gurney accompanied by emt and RN in no distress. RN at bedside to assume care.
[2020-01-07] MEDS ORDERED: Z GUARD REMEDY 2 OZ OINT TP PRN (18:00)
[2020-01-07] MEDS ORDERED: ONDANSETRON HCL/PF 4 MG/2 ML VIAL IVP PRN (18:00)
[2020-01-07] MEDS ORDERED: ZOLPIDEM TARTRATE 5 MG TABLET PO PRN (18:00)
[2020-01-07] MEDS ORDERED: MAGNESIUM HYDROXIDE 30 ML UDC PO PRN (18:00)
[2020-01-07] MEDS ORDERED: HYDROCODONE/APAP 5/325MG 1 EACH TABLET PO PRN (18:00)
--- NOTE | 2020-01-07 19:05 | NUR ---
Report given to night coordinator nurse for YASMINE
--- NOTE | 2020-01-07 19:20 | NUR ---
TELE/RN OPENING NOTES: RECEIVED PT A/OX3. IN BED, RESTING COMFORTABLY. STABLE AT THIS TIME. NO SO0B NOTED, ON ROOM AIR SATURATING ABOVE 95%. NO S/S OF ACUTE RESP DISTRESS. NO C/O PAIN AT THIS TIME. ON TELE MONITORING WITH READING OF SR HR ON THE 60'S WITH 1ST DEGREE AV BLOCK AND OCCASIONAL PVCS. SKIN INTACT, ON BED REST DUE TO WEAKNESS. HAS PT EVAL SCHEDULED TOMORROW. IV ON THE LEFT AC #18G INTACT AND PATENT. SAFETY MEASURES ON, BED IN LOW, LOCKED POSITION WITH SR UP X2. CALL LIGHT WITHIN REACH. WILL CONTINUE TO MONITOR ACCORDINGLY.
--- NOTE | 2020-01-07 19:50 | NUR ---
TELE/RN NOTES: PT HAS ELEVATED BP. ORTHOSTATIC BP TAKEN; SITTING UP 160/101 HR: 67; LAYING DOWN BP: 185/116 HR:64. UNABLE TO TAKE STANDING UP BP DT PT UNABLE TO STAND UP. INFORMATION RELAYED TO MARY REESE NP. PER MARY, ORDERED CLONIDINE 0.1 MG PO Q6 PRN FOR SYSTOLIC BP >160. PT IS STABLE AND NO COMPLAINS OF HEADACHE.
[2020-01-07 20:00] VITALS: BP_SYST 159; BP_SYST 160; BP_SYST 185; BP_DIAS 101; BP_DIAS 116; BP_DIAS 95
[2020-01-07] MEDS: IV NS 0.9% 1,000 ML IV PRN (20:01)
[2020-01-07] MEDS: CLONIDINE HCL 0.1 MG TABLET PO PRN (20:14)
--- NOTE | 2020-01-07 20:15 | NUR ---
TELE/RN NOTES: CLONIDINE 0.1 MG PO GIVEN. PT TOLERATED WELL. WILL KEEP MONITORING PT.
[2020-01-07] MEDS: HEPARIN SODIUM, PORCINE 5000 UNITS/1 ML VIAL SQ SCH (20:38)
[2020-01-07 21:00] VITALS: BP_SYST 151; BP_SYST 159; BP_DIAS 102; BP_DIAS 95
[2020-01-07] MEDS: ACETAMINOPHEN 325 MG TABLET PO PRN (21:24)
[2020-01-07] MEDS: QUETIAPINE FUMARATE 25 MG TABLET PO SCH (22:53)
[2020-01-08] VITALS (8 sets, daily range): BP systolic 109–169; BP diastolic 79–107
--- NOTE | 2020-01-08 02:21 | NUR ---
TELE/RN NOTES: COVID 19 TEST DROPPED OFF TO LAB, HANDED TO
--- NOTE | 2020-01-08 04:00 | NUR ---
TELE/RN NOTES: ORTHOSTATIC BP TAKEN ORDERED; SUPINE AND SITTING UP. UNABLE TO ATTAIN STANDING UP BP BEC PT UNABLE TO STAND DUE TO WEAKNESS.
--- NOTE | 2020-01-08 06:36 | NUR ---
TELE/RN CLOSING NOTES: PT REMAINS A/OX3. IN BED, RESTING COMFORTABLY. STABLE AT THIS TIME. NO SOB NOTED, ON ROOM AIR SATURATING ABOVE 95%. NO S/S OF ACUTE RESP DISTRESS. NO C/O PAIN AT THIS TIME. CURRENT TELE READING OF SB HR ON 54 WITH 1ST DEGREE AV BLOCK AND OCCASIONAL PVCS. IV ON THE LEFT AC #18G INTACT AND PATENT WITH IVF RUNNING AT 50MLS/HR. SAFETY MEASURES ON, BED IN LOW, LOCKED POSITION WITH SR UP X2. CALL LIGHT WITHIN REACH. WILL ENDORSE TO DAY SHIFT FOR YASMINE.
--- NOTE | 2020-01-08 07:30 | NUR ---
NEWS DEPARTMENT INTERN Open Notes Patient is A/O x 3, calm and cooperative. Oxygen Saturation is above 95%. No signs of distress room air. IV L AC #18G intact infusing NS at 50 mls/hr. Sinus Willian at 58. Bed is on low position and side rails up x 2 for safety. Call light is within reach. Will continue to monitor.
[2020-01-08 07:32] LABS: BASOPHILS % (AUTO) 0.4 % (0.0-2.0); EOSINOPHILS % (AUTO) 3.4 % (0.0-6.0); HEMATOCRIT 37 % (39-51); HEMOGLOBIN 12.3 g/dL (13.5-17.5); LYMPHOCYTES # (AUTO) 1.6 /CMM (0.8-4.8); LYMPHOCYTES % (AUTO) 28.2 % (20.0-44.0); MEAN CORPUSCULAR HGB CONC 34 g/dl (31.0-36.0); MEAN CORPUSCULAR VOLUME 90 fL (80-96); MONOCYTES # (AUTO) 0.7 /CMM (0.1-1.30); MONOCYTES % (AUTO) 12.3 % (2.0-12.0); NEUTROPHILS # (AUTO) 3.1 /CMM (1.8-8.9); NEUTROPHILS % (AUTO) 55.7 % (43.0-81.0); PLATELET COUNT (AUTO) 109 /CMM (150-450); RED BLOOD CELL COUNT(AUTO) 4.06 MIL/uL (4.5-6.0); WHITE BLOOD COUNT (AUTO) 5.5 K/uL (4.3-11.0)
[2020-01-08] MEDS: PANTOPRAZOLE 40 MG TABLET.DR PO SCH (07:45)
[2020-01-08] MEDS: LEVOTHYROXINE SODIUM 75 MCG TABLET PO SCH (07:45)
[2020-01-08 07:56] LABS: CREATININE 1.2 mg/dL (0.6-1.3); MAGNESIUM 2.2 mg/dL (1.8-2.4); PHOSPHORUS 3.1 mg/dL (2.5-4.9); POTASSIUM 3.8 mmol/L (3.5-5.1)
[2020-01-08] MEDS: ESCITALOPRAM OXALATE (10 MG) 10 MG TABLET PO SCH (08:54)
[2020-01-08] MEDS: AMIODARONE HCL 200 MG TABLET PO SCH (09:00)
[2020-01-08] MEDS: HEPARIN SODIUM, PORCINE 5000 UNITS/1 ML VIAL SQ SCH ×2 (09:04→21:07)
[2020-01-08] MEDS: CLONIDINE HCL 0.1 MG TABLET PO PRN (09:05)
[2020-01-08 12:03] LABS: APPEARANCE,URINE SL CLOUDY (CLEAR); BILIRUBIN,URINE NEGATIVE (NEGATIVE); BLOOD, URINE NEGATIVE Ery/uL (NEGATIVE); COLOR,URINE YELLOW (YELLOW); KETONES,URINE NEGATIVE (NEGATIVE); LEUKOCYTE ESTERASE ,URINE NEGATIVE (NEGATIVE); NITRITE, URINE NEGATIVE (NEGATIVE); PH,URINE 5.5 (5.0-8.0); PROTEIN,URINE NEGATIVE (NEGATIVE); UGLUCOSE NEGATIVE (NEGATIVE); UROBILINOGEN,URINE 0.2 EU/dL (0.2)
[2020-01-08 12:09] LABS: CREATININE, URINE 164.7 MG/DL (30.0-125.0); URINE TOTAL PROTEIN 24.3 mg/dL (0-11.9)
[2020-01-08] MEDS: POLYVINYL ALCOHOL 15 ML BOTTLE EACHEYE PRN (12:32)
--- NOTE | 2020-01-08 12:55 | NUR ---
RN Notes Unable to take orthostatic blood pressure while standing, patient stated to feel weak and dizzy.
[2020-01-08 14:43] LABS: EOSINOPHIL,URINE None Seen
[2020-01-08] MEDS: IV NS 0.9% 1,000 ML IV PRN (17:16)
--- NOTE | 2020-01-08 18:26 | NUR ---
MS RN Close Notes Patient is calm and cooperative A/O x 3. No signs of distress in room air. IV L AC #18G intact NS at 50 ml/hr. Scheduled medications were given. Labs will be taken tomorrow. Bed is in low position side rails up x 2 for safety. Call light is within reach. Will endorse to the warehouse supervisor 3rd shift nurse.
--- NOTE | 2020-01-08 19:51 | NUR ---
MS RN NOTES PATIENT RECEIVED IN BED RESTING COMFORTABLY WATCHING TV, ALERT AND ORIENTED X 3. ON ISOLATION PRECAUTIONS FOR RULE OUT COVID-19. ON ROOM AIR WITH NO SIGNS OF RESPIRATORY DISTRESS AT THIS TIME, WITH EVEN NON-LABORED BREATHING. IV ACCESS INTACT AND PATENT, ON LEFT AC, INFUSING NORMAL SALINE AT 50ml/hr. PATIENT DENIES ANY PAIN OR DISCOMFORT AT THIS TIME. SKIN WARM AND DRY TO TOUCH. SAFETY PRECAUTIONS IMPLEMENTED WITH BED LOCKED, BED IN THE LOWEST POSITION, BILATERAL SIDE RAILS UP, BED ALARM ON, AND CALL LIGHT WITHIN EASY REACH OF THE PATIENT. WILL CONTINUE TO MONITOR PATIENT.
[2020-01-08] MEDS: QUETIAPINE FUMARATE 25 MG TABLET PO SCH (21:15)
[2020-01-09] MEDS: CLONIDINE HCL 0.1 MG TABLET PO PRN (04:10)
--- NOTE | 2020-01-09 04:10 | NUR ---
MS RN NOTES PATIENT'S BLOOD PRESSURE; 167/113, ADMINISTERED PRN CLONIDINE 0.1mg PO ORDERED. WILL CONTINUE TO MONITOR PATIENT.
[2020-01-09 06:23] LABS: BASOPHILS % (AUTO) 0.2 % (0.0-2.0); EOSINOPHILS % (AUTO) 1.9 % (0.0-6.0); HEMATOCRIT 34 % (39-51); HEMOGLOBIN 11.8 g/dL (13.5-17.5); LYMPHOCYTES # (AUTO) 1.2 /CMM (0.8-4.8); LYMPHOCYTES % (AUTO) 15.2 % (20.0-44.0); MEAN CORPUSCULAR HGB CONC 34 g/dl (31.0-36.0); MEAN CORPUSCULAR VOLUME 89 fL (80-96); MONOCYTES # (AUTO) 0.9 /CMM (0.1-1.30); MONOCYTES % (AUTO) 10.7 % (2.0-12.0); NEUTROPHILS # (AUTO) 5.7 /CMM (1.8-8.9); PLATELET COUNT (AUTO) 105 /CMM (150-450); RED BLOOD CELL COUNT(AUTO) 3.85 MIL/uL (4.5-6.0)
--- NOTE | 2020-01-09 06:32 | NUR ---
MS RN NOTES PATIENT IN BED SLEEPING COMFORTABLY EASILY AWAKEN BY NAME AND LIGHT TOUCH. ON ISOLATION PRECAUTIONS FOR RULE OUT COVID-19. ON ROOM AIR WITH NO SIGNS OF RESPIRATORY DISTRESS AT THIS TIME, WITH EVEN NON-LABORED BREATHING. IV ACCESS INTACT AND PATENT, ON LEFT AC, INFUSING NORMAL SALINE AT 50ml/hr. PATIENT DENIES ANY PAIN OR DISCOMFORT AT THIS TIME. SKIN WARM AND DRY TO TOUCH. MET ALL OF PATIENT'S NEEDS. SAFETY PRECAUTIONS IMPLEMENTED WITH BED LOCKED, BED IN THE LOWEST POSITION, BILATERAL SIDE RAILS UP, BED ALARM ON, AND CALL LIGHT WITHIN EASY REACH OF THE PATIENT. WILL ENDORSE PLAN OF CARE TO UPCOMING DAYSHIFT NURSE.
[2020-01-09 06:42] LABS: ALBUMIN 3.1 g/dL (3.4-5.0); BILIRUBIN,TOTAL 0.4 mg/dL (0.2-1.0); CALCIUM, SERUM 9.6 mg/dL (8.5-10.1); CREATININE 1.2 mg/dL (0.6-1.3); MAGNESIUM 2.1 mg/dL (1.8-2.4); PHOSPHORUS 2.9 mg/dL (2.5-4.9); POTASSIUM 3.7 mmol/L (3.5-5.1); TOTAL PROTEIN, SERUM 5.8 g/dL (6.4-8.2)
--- NOTE | 2020-01-09 07:15 | NUR ---
NICKEL OPERATOR NOTES PATIENT IN BED ALERT ORIENTED X 3. NO ACUTE DISTRESS NOTED. BREATHING UNLABORED. IV ACCESS PATENT AND INTACT, NO REDNESS NO SWELLING NOTED. SAFETY MEASURES IN PLACE. CALL LIGHT WITHIN EACH WILL CONTINUE TO MONITOR ACCORDINGLY.
[2020-01-09] MEDS: PANTOPRAZOLE 40 MG TABLET.DR PO SCH (07:51)
[2020-01-09] MEDS: LEVOTHYROXINE SODIUM 75 MCG TABLET PO SCH (07:51)
[2020-01-09 08:00] VITALS: BP 143/98
[2020-01-09] MEDS: ESCITALOPRAM OXALATE (10 MG) 10 MG TABLET PO SCH (08:45)
[2020-01-09] MEDS: VALSARTAN 80 MG TABLET PO SCH (08:45)
[2020-01-09] MEDS: AMIODARONE HCL 200 MG TABLET PO SCH (08:46)
[2020-01-09] MEDS: HEPARIN SODIUM, PORCINE 5000 UNITS/1 ML VIAL SQ SCH ×2 (08:48→21:43)
[2020-01-09] MEDS: IV NS 0.9% 1,000 ML IV PRN (10:43)
[2020-01-09] MEDS: AMLODIPINE BESYLATE 10 MG TABLET PO SCH (10:49)
[2020-01-09 16:00] VITALS: BP 159/100
[2020-01-09] MEDS: POLYVINYL ALCOHOL 15 ML BOTTLE EACHEYE PRN (18:27)
--- NOTE | 2020-01-09 19:00 | NUR ---
MS RN NOTES PATIENT IN BED ALERT ORIENTED X 3. NO ACUTE DISTRESS NOTED. BREATHING UNLABORED. IV ACCESS PATENT AND INTACT, NO REDNESS NO SWELLING NOTED. NEEDS ATTENDED AND ANTICIPATED. KEPT CLEAN DRY AND COMFORTABLE. SAFETY MEASURES IN PLACE. CALL LIGHT WITHIN REACH. WILL ENDORSE TO NIGHT NURSE FOR CONTINUITY OF CARE.
[2020-01-09 20:00] VITALS: BP 174/96
--- NOTE | 2020-01-09 20:00 | NUR ---
MS RN OPENING NOTE: Patient in bed, awake, resting comfortably. Patient denies pain or discomfort. Patient shows no signs of distress. On room air; no SOB. Breathing unlabored and equal. Left AC #24 gauge; IV is patent, no redness, and no infiltration. Safety precaution in place; bed in lowest position, bed is locked, side rails x2 are up, alarm is on, and call light is within reach. Will continue plan of care.
[2020-01-09] MEDS: LINEZOLID 600 MG TABLET PO SCH (21:37)
[2020-01-09] MEDS: QUETIAPINE FUMARATE 25 MG TABLET PO SCH (21:38)
[2020-01-09] MEDS ORDERED: hydrALAZINE HCL 10 MG TABLET PO ONE (23:30)
--- NOTE | 2020-01-09 23:49 | NUR ---
MS RN NOTE: Patient BP 174/96, HR 55. Rechecked BP 167/106, HR 55. Made Epic aware. MD ordered Hydralazine 10mgx1. Read back and carried out order. Administered Hydralazine per order. Will continue to monitor.
--- NOTE | 2020-01-10 01:10 | NUR ---
MS RN NOTE: Rechecked patient Vitals. BP 173/89, HR 53. Made [facility] MD aware. Per MD order, Hydralazine 10mg IV x 1. Read back and carried out order. Administered Hydralazine per order. Will continue to monitor.
[2020-01-10] MEDS ORDERED: hydrALAZINE HCL IV 20 MG VIAL IV ONE (02:18)
--- NOTE | 2020-01-10 03:32 | NUR ---
MS RN NOTE: Vitals after Hydralazine 10mg IV; BP 139/89, HR 59. Made Epic aware. No new orders.
[2020-01-10] MEDS: IV NS 0.9% 1,000 ML IV PRN (06:14)
[2020-01-10] MEDS: LEVOTHYROXINE SODIUM 75 MCG TABLET PO SCH (06:31)
[2020-01-10] MEDS: PANTOPRAZOLE 40 MG TABLET.DR PO SCH (06:31)
[2020-01-10 06:46] LABS: BASOPHILS % (AUTO) 0.1 % (0.0-2.0); EOSINOPHILS % (AUTO) 2.8 % (0.0-6.0); HEMATOCRIT 35 % (39-51); HEMOGLOBIN 11.9 g/dL (13.5-17.5); LYMPHOCYTES # (AUTO) 1.5 /CMM (0.8-4.8); MEAN CORPUSCULAR HGB CONC 34 g/dl (31.0-36.0); MEAN CORPUSCULAR VOLUME 90 fL (80-96); MONOCYTES # (AUTO) 0.8 /CMM (0.1-1.30); MONOCYTES % (AUTO) 12.4 % (2.0-12.0); NEUTROPHILS # (AUTO) 3.7 /CMM (1.8-8.9); NEUTROPHILS % (AUTO) 60.7 % (43.0-81.0); PLATELET COUNT (AUTO) 99 /CMM (150-450); RED BLOOD CELL COUNT(AUTO) 3.91 MIL/uL (4.5-6.0); WHITE BLOOD COUNT (AUTO) 6.1 K/uL (4.3-11.0)
--- NOTE | 2020-01-10 06:49 | NUR ---
MS RN CLOSING NOTE: Patient in bed, awake, resting comfortably. Patient denies pain or discomfort. Patient shows no signs of distress. On room air; no SOB. Breathing unlabored and equal. Safety precaution in place; bed in lowest position, bed is locked, side rails x2 are up, alarm is on, and call light is within reach. Will endorse to next shift.
[2020-01-10 07:07] LABS: PTH, INTACT 38 pg/mL (15-65)
[2020-01-10 07:07] LABS: ALANINE AMINOTRANSFERASE 16 U/L (12-78); ALBUMIN 3.1 g/dL (3.4-5.0); ALKALINE PHOSPHATASE 57 U/L (46-116); ASPARTATE AMINOTRANSFERASE 15 U/L (15-37); BILIRUBIN,TOTAL 0.5 mg/dL (0.2-1.0); CALCIUM, SERUM 9.5 mg/dL (8.5-10.1); CARBON DIOXIDE 26 mmol/L (21-32); CHLORIDE 105 mmol/L (98-107); GLUCOSE 90 mg/dL (74-106); MAGNESIUM 1.9 mg/dL (1.8-2.4); PHOSPHORUS 2.3 mg/dL (2.5-4.9); POTASSIUM 3.6 mmol/L (3.5-5.1); SODIUM SERUM 138 mmol/L (136-145); UREA NITROGEN, BLOOD 25 mg/dL (7-18)
--- NOTE | 2020-01-10 07:30 | NUR ---
MS RN OPEN PATIENT IS IN BED RESTING A/O X 3. NO SIGNS OF DISTRESS IN ROOM AIR. IV L AC #18 SL AND R FA #22 INTACT RUNNING NS AT 125 ML/HR. BED ISIN LOW POSITION SIDE RAILS UP X 2 FOR SAFETY. CALL LIGHT WITHIN REACH. WILL CONTINUE TO MONITOR.
[2020-01-10 08:00] VITALS: BP 154/94
[2020-01-10] MEDS: ESCITALOPRAM OXALATE (10 MG) 10 MG TABLET PO SCH (08:22)
[2020-01-10] MEDS: VALSARTAN 80 MG TABLET PO SCH (08:22)
[2020-01-10] MEDS: LINEZOLID 600 MG TABLET PO SCH (08:22)
[2020-01-10] MEDS: AMLODIPINE BESYLATE 10 MG TABLET PO SCH (08:23)
[2020-01-10] MEDS: HEPARIN SODIUM, PORCINE 5000 UNITS/1 ML VIAL SQ SCH (08:27)
[2020-01-10] MEDS: AMIODARONE HCL 200 MG TABLET PO SCH (09:00)
[2020-01-10] MEDS ORDERED: BISACODYL SUPP (10 MG) 10 MG/SUPP.RECT SUPP.RECT RC PRN (09:30)
[2020-01-10] MEDS ORDERED: BISACODYL (5 MG) 5 MG TABLET.DR PO PRN (09:30)
[2020-01-10] MEDS ORDERED: LACTULOSE 10 G/15 ML UDC (PYXIS) PO PRN (09:30)
[2020-01-10 10:11] VITALS: BP_SYST 104; BP_SYST 129; BP_SYST 134; BP_DIAS 73; BP_DIAS 74; BP_DIAS 89
[2020-01-10] MEDS: hydrALAZINE HCL 50 MG TABLET PO SCH ×3 (10:27→17:52)
[2020-01-10] MEDS: NEUTRA PHOS 1 POWD.PACKET PO SCH ×2 (10:27→17:53)
[2020-01-10] MEDS: ACETAMINOPHEN 325 MG TABLET PO PRN (10:35)
[2020-01-10 11:07] LABS: *SPE A/G RATIO 1.3 (0.7-1.7); *SPE ALPHA-1-GLOBULIN 0.2 g/dL (0.0-0.4); *SPE ALPHA-2-GLOBULIN 0.6 g/dL (0.4-1.0); *SPE BETA GLOBULIN 0.8 g/dL (0.7-1.3); *SPE GLOBULIN, TOTAL 2.4 g/dL (2.2-3.9); *SPE M-SPIKE Not Observed g/dL (Not Observed); *SPEGAMMA GLOBULIN 0.8 g/dL (0.4-1.8)
[2020-01-10 16:00] VITALS: BP 154/90
[2020-01-10] MEDS ORDERED: Linezolid PO (16:41)
[2020-01-10] MEDS ORDERED: Polyvinyl Alcohol EACHEYE (16:41)
[2020-01-10] MEDS ORDERED: AMLO10TA7 PO (16:41)
[2020-01-10] MEDS ORDERED: VALS80TA2 PO (16:41)
[2020-01-10] MEDS ORDERED: NEUTRA PHOS PO (16:41)
[2020-01-10] MEDS ORDERED: HYDR-4077 PO (16:41)
[2020-01-10 17:52] VITALS: BP 154/90
--- NOTE | 2020-01-10 18:35 | NUR ---
CAFE LEAD NOTES [facility] P# [phone]. REPORT GIVEN TO TEODORA MATTHEWS. ALERT ORIENTED X 3. NO ACUTE DISTRESS NOTED. NO SOB NOTED. DISCHARGE INSTRUCTIONS GIVEN TO THE PATIENT, VERBALIZE UNDERSTANDING. DISCHARGE PAPERWORK GIVEN TO EMT PERSONNEL TO BE GIVEN TO ACUTE DAIRY PRODUCTS MAKER. ALL BELONGINGS ACCOUNTED FOR. VITAL SIGNS STABLE. IV ACCESS REMOVED, NO REDNESS, NO BLEEDING , NO REDNESS NOTED. NEEDS ATTENDED AND ANTICIPATED. PICKED UP VIA AMBULANCE IN A GURNEY ACCOMPANIED BY 2 EMT PERSONNEL IN STABLE CONDITION.
== END 2020-01-10 18:31 | DRG 73 ==
LOC: ER 14:00 → TELE 16:31 → MED 01-08 10:04
PROVIDERS: ADMIT Nurse Practitioner Acute Care; ATTEND Nurse Practitioner Acute Care
DX: G90.8 Other disorders of autonomic nervous system (principal); N17.0 Acute kidney failure with tubular necrosis; N41.0 Acute prostatitis; N10 Acute pyelonephritis; E86.0 Dehydration; I10 Essential (primary) hypertension; I48.91 Unspecified atrial fibrillation; E83.52 Hypercalcemia; E03.9 Hypothyroidism, unspecified; E78.5 Hyperlipidemia, unspecified; I73.9 Peripheral vascular disease, unspecified; N40.0 Benign prostatic hyperplasia without lower urinary tract symptoms; M48.00 Spinal stenosis, site unspecified; I05.8 Other rheumatic mitral valve diseases; Z82.49 Family history of ischemic heart disease and other diseases of the circulatory system; Z95.2 Presence of prosthetic heart valve; Z87.11 Personal history of peptic ulcer disease; Z91.11 Patient's noncompliance with dietary regimen; Z91.19 Patient's noncompliance with other medical treatment and regimen; Z79.899 Other long term (current) drug therapy; E86.1 Hypovolemia; E11.65 Type 2 diabetes mellitus with hyperglycemia; K59.00 Constipation, unspecified
CPT/HCPCS: 36415; 71045-TC; 80048-TC; 80053-TC; 80061-TC; 80076-TC; 81000-TC; 82550-TC; 82570-TC; 82962-TC; 83735-TC; 83970; 84100-TC; 84155; 84155-TC; 84165; 84300-TC; 84484-TC; 85025-TC; 85730-TC; 87081-TC; 93307-TC; 97110-TC; 97116-TC; 97530-TC; G0378; J0360; J1644; J7030; J7040; U0003-CS

== ENCOUNTER 2020-02-15 07:47 | Inpatient (IN) | payer MEDICARE, BC ==
[~2020-02-15] VITALS: Ht 172.7 cm; Wt 88.9 kg
[~2020-02-15 07:47] MED LIST changes: +ACET-2605 PO; +AMLO10TA7 PO; +HYDR-4077 PO; -LORA2TAB PO; +Linezolid PO; +NEUTRA PHOS PO; -PANT40TA4 PO; +PANT40TA49 PO; +Polyvinyl Alcohol EACHEYE; +VALS80TA2 PO
--- NOTE | 2020-02-15 07:47 | NUR ---
PT BIBRA 102 FROM HOME C/O GEN WEAKNESS X 2 DAYS AND FEVER. PT IS AAOX3, NOT IN RESPIRATORY DISTRESS, HOOKED TO BOAT CARPENTER MECHANIC, KEPT RESTED AND COMFORTABLE. WILL CONTINUE TO MONITOR.
--- NOTE | 2020-02-15 07:49 | NUR ---
PT SEEN AND EXAMINED BY .
[2020-02-15] MEDS ORDERED: ACETAMINOPHEN ES 500 MG TABLET ONE (07:54)
[2020-02-15] MEDS ORDERED: ACETAMINOPHEN ES 500 MG TABLET PO ONE (08:00)
--- NOTE | 2020-02-15 08:00 | NUR ---
IV LINE ESTABLISHED BLOOD DRAWN AND SENT TO LAB.
--- NOTE | 2020-02-15 08:05 | NUR ---
OCEANOLOGY TEACHER AT BEDSIDE FOR XRAY.
[2020-02-15 08:13] LABS: BASOPHILS # (AUTO) 0.1 /CMM (0.0-0.2); BASOPHILS % (AUTO) 0.9 % (0.0-2.0); EOSINOPHILS % (AUTO) 0.2 % (0.0-6.0); HEMATOCRIT 33 % (39-51); HEMOGLOBIN 11.1 g/dL (13.5-17.5); LYMPHOCYTES # (AUTO) 0.2 /CMM (0.8-4.8); LYMPHOCYTES % (AUTO) 1.6 % (20.0-44.0); MEAN CORPUSCULAR HGB CONC 33 g/dl (31.0-36.0); MEAN CORPUSCULAR VOLUME 91 fL (80-96); MONOCYTES # (AUTO) 0.7 /CMM (0.1-1.30); MONOCYTES % (AUTO) 6.3 % (2.0-12.0); NEUTROPHILS # (AUTO) 10.8 /CMM (1.8-8.9); PLATELET COUNT (AUTO) 132 /CMM (150-450); RED BLOOD CELL COUNT(AUTO) 3.67 MIL/uL (4.5-6.0); WHITE BLOOD COUNT (AUTO) 11.9 K/uL (4.3-11.0)
--- NOTE | 2020-02-15 08:15 | NUR ---
URINAL GIVEN UNABLE TO PROVIDE URINE SPECIMEN THIS TIME.
--- NOTE | 2020-02-15 08:24 | NUR ---
MOVESHEET SUBMITTED TO ADMITTING AND CALLED FOR A TELE BED.
--- NOTE | 2020-02-15 08:30 | NUR ---
COVID SWAB OBTAINED AND SENT TO LAB.
[2020-02-15 08:33] LABS: CALCIUM, SERUM 9.9 mg/dL (8.5-10.1); CARBON DIOXIDE 23 mmol/L (21-32); CHLORIDE 103 mmol/L (98-107); CREATININE 1.1 mg/dL (0.6-1.3); GLUCOSE 112 mg/dL (74-106); POTASSIUM 3.7 mmol/L (3.5-5.1); SODIUM SERUM 136 mmol/L (136-145); UREA NITROGEN, BLOOD 20 mg/dL (7-18)
[2020-02-15] MEDS ORDERED: LEVO75TA7 PO (08:44)
[2020-02-15 08:46] LABS: ALANINE AMINOTRANSFERASE 72 U/L (12-78); ALBUMIN 2.5 g/dL (3.4-5.0); ALKALINE PHOSPHATASE 91 U/L (46-116); ASPARTATE AMINOTRANSFERASE 51 U/L (15-37); BILIRUBIN,DIRECT 0.3 mg/dL (0.0-0.2); BILIRUBIN,TOTAL 0.7 mg/dL (0.2-1.0); TOTAL PROTEIN, SERUM 6.2 g/dL (6.4-8.2)
--- NOTE | 2020-02-15 09:05 | NUR ---
PT WHEELED TO CT SCAN VIA [employer].
[2020-02-15 09:10] LABS: APPEARANCE,URINE Cloudy (CLEAR); BILIRUBIN,URINE Negative (NEGATIVE); BLOOD, URINE Moderate Ery/uL (NEGATIVE); COLOR,URINE Yellow (YELLOW); KETONES,URINE Negative (NEGATIVE); LEUKOCYTE ESTERASE ,URINE Large (NEGATIVE); NITRITE, URINE Negative (NEGATIVE); PH,URINE 5.5 (5.0-8.0); PROTEIN,URINE 100 mg/dl (NEGATIVE); UGLUCOSE Negative (NEGATIVE); UROBILINOGEN,URINE 0.2 EU/dL (0.2)
[2020-02-15 09:17] LABS: BACTERIA,URINE Many /HPF (None Seen); SQUAMOUS EPITHELIAL CELL,UR Few /HPF (None Seen); WBC,URINE TOO NUMEROUS TO COUN /HPF (0-3)
--- NOTE | 2020-02-15 09:44 | NUR ---
CALLED PHARMACY FOR PT ANTIBIOTIC.
[2020-02-15] MEDS ORDERED: FUROSEMIDE 20 MG/2 ML VIAL IV ONE (10:00)
[2020-02-15] MEDS ORDERED: LEVOFLOXACIN 750 MG /D5W 150ML 150 ML IV ONE (10:00)
--- NOTE | 2020-02-15 10:00 | NUR ---
GOT BED 110
[2020-02-15] MEDS: AZTREONAM 1 G in IV NS 0.9% 100 ML IV ONE (10:10)
[2020-02-15] MEDS ORDERED: IV NS 0.9% 500 ML BAG IV ONE (10:30)
--- NOTE | 2020-02-15 10:51 | NUR ---
IS JIN [phone]
[2020-02-15 12:00] VITALS: BP 88/59
--- NOTE | 2020-02-15 12:17 | NUR ---
dr. effie shoemaker for admitting orders.patient afib nowawaits ekg to confirm.
--- NOTE | 2020-02-15 12:20 | NUR ---
per md patient has afib before.
--- NOTE | 2020-02-15 12:21 | NUR ---
dr. effie stone will place order later.
--- NOTE | 2020-02-15 12:43 | NUR ---
BILLING ASSISTANT NOTES [facility] NO SOB OR PAIN REPORTED BY PATIENT. PATIENT IS ON ROOM AIR, PENDING RESULT FOR COVID. TEMP 97.6 HR 64 RR19 SPO2 100% BP 88/59. BELONGINGS SIGNED AND IN THE CHART. WILL CONTINUE TO MONITOR THE PATIENT.
[2020-02-15] MEDS ORDERED: ZOLPIDEM TARTRATE 5 MG TABLET PO PRN (13:30)
[2020-02-15] MEDS ORDERED: Z GUARD REMEDY 2 OZ OINT TP PRN (13:30)
[2020-02-15] MEDS ORDERED: ONDANSETRON HCL/PF 4 MG/2 ML VIAL IVP PRN (13:30)
[2020-02-15] MEDS ORDERED: HYDROCODONE/APAP 5/325MG TABLET PO PRN (13:30)
--- NOTE | 2020-02-15 14:01 | NUR ---
CODE STATUES DR WANG HAD A CONVERSATION WITH PATIENT ABOUT CODE STATUES AND PATIENT REQUESTED FULL CODE.
[2020-02-15] MEDS: ENOXAPARIN SODIUM 40 MG/0.4 ML DISP.SYRIN SQ SCH (14:35)
[2020-02-15 16:00] VITALS: BP 104/68
--- NOTE | 2020-02-15 16:45 | NUR ---
LAN/WAN ENGINEER NOTES DROPPED OF 2 PAIRS OF GLASSES FOR THE PATIENT. HANDED TO PATIENT AND DOCUMENTED IN THE BELONGINGS.
[2020-02-15] MEDS: ACETAMINOPHEN 325 MG TABLET PO PRN (17:05)
--- NOTE | 2020-02-15 17:05 | NUR ---
COMMISSIONING MANAGER NOTES PATIENT COMPLAINING OF HEADACHE TYLENOL GIVEN.
--- NOTE | 2020-02-15 18:47 | NUR ---
TECHNOLOGY SALES SPECIALIST NOTES PATIENT IN BED AWAKE, A/OX4, NO SOB OR DISTRESS NOTED AT THIS TIME. PATIENT ASKED FOR SLEEP MEDS AND EXPLAINED THAT HE HAS [facility]. IV SITE PATENT FLUSHED WELL WITH NS. COVID RESULTS PENDING. ALL NEEDS ATTENDED. BED AT THE LOWEST POSITION LOCKED. CALL LIGHT WITHIN REACH. PHONE PROVIDED FOR THE PATIENT. REPORT WILL BE GIVEN TO DIRECTOR INTERNAL AUDIT NURSE FOR YASMINE.
--- NOTE | 2020-02-15 19:20 | NUR ---
RN OPENING NOTES: RECEIVED PT A/OX2-3; DELAYED RESPONSE. PATIENT IN BED RESTING COMFORTABLY. PATIENT IN NO S/SX OF ACUTE DISTRESS AT THIS TIME. NO SOB NOTED. PATIENT'S BREATHING IS EVEN AND UNLABORED. PATIENT IS ON 2 L OF OXYGEN VIA NC ; TOLERATING WELL.PATIENT ON TELE MONITORING READING SINUS RHYTHM HR IS @60S ON THE TIME OF RECEIVED. NOTED IV SITE ON R AC #18 ; PATENT IN INTACT,NO S/S OF INFECTION OR INFILTRATION. PATIENT WITH VT PUMP ON .SAFETY MEASURES HAVE BEEN PROVIDED AND IMPLEMENTED. PATIENT BED ALARM IS ON. HEAD OF BED ELEVATED. BED IS LOCKED, IN LOWEST POSITION AND SIDE RAILS UP. CALL LIGHT WITHIN REACH OF THE PATIENT. ISOLATION PRECAUTIONS IN PLACE. WILL CONTINUE TO MONITOR AND REASSESS FOR ANY CHANGES.
[2020-02-15 20:00] VITALS: BP 124/84
[2020-02-15] MEDS: AZTREONAM 2 G in IV NS 0.9% 100 ML IV SCH (20:27)
[2020-02-15] MEDS ORDERED: QUETIAPINE FUMARATE 25 MG TABLET PO SCH (22:00)
[2020-02-16] VITALS (7 sets, daily range): BP systolic 108–164; BP diastolic 71–99
[2020-02-16] MEDS: ACETAMINOPHEN 325 MG TABLET PO PRN ×3 (00:48→20:38)
[2020-02-16] MEDS: AZTREONAM 2 G in IV NS 0.9% 100 ML IV SCH ×3 (04:49→20:38)
--- NOTE | 2020-02-16 06:34 | NUR ---
RN CLOSING NOTES PATIENT REMAINS IN ROOM IN NO SIGNS OF RESPIRATORY DISTRESS. PATIENT SATURATING 99%. VITAL SIGNS WNL. SAFETY PRECAUTIONS IN PLACE AND COMFORT MEASURES RENDERED. BED IN LOWEST POSITION, CALL LIGHT WITHIN REACH, BREAKS ON, SIDE RAILS UP. ALL NEEDS ATTENDED, MEDICATIONS GIVEN SCHEDULED AND ORDERED ; SHIFT ASSESSMENT/BEDBATH/SKIN CARE DONE. PATIENT KEPT CLEAN AND DRY. WILL ENDORSE TO INCOMING SHIFT FOR YASMINE.
[2020-02-16] MEDS ORDERED: PANTOPRAZOLE 40 MG TABLET.DR PO SCH (07:30)
--- NOTE | 2020-02-16 07:30 | NUR ---
RN OPENING NOTES Received patient in bed, resting comfortable, on NC @ 2L of O2, saturating 98% , no s/sx of SOB, resp distress, A/Ox3, Thai speaker, able to make needs know. Patient is on tele-monitor, showing normal sinus rhythm 70s; Skin is intact, IV on R AC noted, intact and patent. Denies pain or discomfort at this moment. safety measures implemented, call light in reach, bed in lowest position, HOB elevated, will cont to monitor
[2020-02-16 07:33] LABS: BASOPHILS % (AUTO) 0.1 % (0.0-2.0); EOSINOPHILS % (AUTO) 0.3 % (0.0-6.0); HEMATOCRIT 30 % (39-51); LYMPHOCYTES # (AUTO) 0.6 /CMM (0.8-4.8); LYMPHOCYTES % (AUTO) 4.6 % (20.0-44.0); MEAN CORPUSCULAR HGB CONC 33 g/dl (31.0-36.0); MEAN CORPUSCULAR VOLUME 90 fL (80-96); MONOCYTES % (AUTO) 8.2 % (2.0-12.0); NEUTROPHILS # (AUTO) 10.7 /CMM (1.8-8.9); NEUTROPHILS % (AUTO) 86.8 % (43.0-81.0); PLATELET COUNT (AUTO) 130 /CMM (150-450); RED BLOOD CELL COUNT(AUTO) 3.34 MIL/uL (4.5-6.0); WHITE BLOOD COUNT (AUTO) 12.4 K/uL (4.3-11.0)
[2020-02-16] MEDS: LEVOTHYROXINE SODIUM 75 MCG TABLET PO SCH (07:56)
[2020-02-16 08:00] LABS: ALBUMIN 2.2 g/dL (3.4-5.0); BILIRUBIN,TOTAL 0.4 mg/dL (0.2-1.0); CALCIUM, SERUM 9.9 mg/dL (8.5-10.1); MAGNESIUM 1.9 mg/dL (1.8-2.4); PHOSPHORUS 2.6 mg/dL (2.5-4.9); POTASSIUM 3.6 mmol/L (3.5-5.1); TOTAL PROTEIN, SERUM 5.8 g/dL (6.4-8.2)
[2020-02-16 08:08] LABS: THYROID STIMULATING HORMONE 0.83 uIU/mL (0.358-3.74)
[2020-02-16] MEDS: ESCITALOPRAM OXALATE (10 MG) 10 MG TABLET PO SCH (08:15)
[2020-02-16] MEDS: PANTOPRAZOLE 40 MG VIAL IV SCH (08:15)
[2020-02-16] MEDS: ENOXAPARIN SODIUM 40 MG/0.4 ML DISP.SYRIN SQ SCH (08:16)
[2020-02-16 08:23] LABS: C-REACTIVE PROTEIN 24.4 mg/dL (0.0-0.9)
[2020-02-16] MEDS ORDERED: FUROSEMIDE 40 MG/4 ML VIAL IV SCH (09:00)
[2020-02-16 09:02] LABS: D-DIMER 4.65 mg/L(FEU (0.17-0.50)
[2020-02-16] MEDS: FUROSEMIDE 40 MG/4 ML VIAL IV SCH ×3 (10:03→18:03)
[2020-02-16] MEDS: LEVOFLOXACIN 750 MG /D5W 150ML 750 MG in PREMIX 1 EA IV SCH (10:04)
--- NOTE | 2020-02-16 11:14 | NUR ---
Patient called, asked about all medications, verbalized concern regarding Lexapro administration time, will inform MD
[2020-02-16] MEDS: SOD FERRIC GLUC 125 MG in IV NS 0.9% 100 ML IV SCH (14:17)
--- NOTE | 2020-02-16 14:55 | NUR ---
patient complains of headache of level 7/10, will administer PRN Tylenol
--- NOTE | 2020-02-16 18:30 | NUR ---
RN CLOSING NOTES Patient remains in bed, resting comfortable, tolerating NC with O2 flow well, saturating 98%, no SOB or distress noted, IV line is patent , intact and flushed, skin is intact, comfort needs are met, all medications given, safety measures implemented, bed in lowest position, HOB elevated, call light in reach, will endorse to PM shift RN for YASMINE
--- NOTE | 2020-02-16 20:00 | NUR ---
NANDA RN NOTES RECEIVED PT IN BED AWAKE AND IN NO DISTRESS OR DISCOMFORT. AAOX2 . 02 SAT 98% ON 2 L NASAL CANNULA. NO SOB NOTED.ON TELE MONITOR NSR HR 60 WITH OCCASIONAL PVCS. RAC #18G INTACT WITH NO SIGNS OF INFILTRATION. IV FLUIDS TKO NS. REPOSITIONED, INCONTINENCE CARE GIVEN AND KEPT CLEAN AND DRY. HOB ELEVATED. BED IN LOWEST AND LOCKED POSITION. BED ALARM ON AND CALL LIGHT WITHIN REACH. VSS WILL CONTINUE TO MONITOR. Addendum: 02/16/20 at 2135 by BRIEN MACKENZIE RN PT REMAINS IN ISOLATION FOR R/O COVID. ISOLATION PRECAUTIONS TAKEN.
--- NOTE | 2020-02-16 20:38 | NUR ---
NANDA RN NOTES PT COMPLAIN OF HEADACHE 09/16. TYLENOL GIVEN. DUE IV ATB HUNG. WILL CONTINUE TO MONITOR
--- NOTE | 2020-02-16 21:38 | NUR ---
NANDA RN NOTES HEADACHE SUBSIDED.PAIN NOW 0/10. WILL CONTINUE TO MONITOR.
--- NOTE | 2020-02-16 22:51 | NUR ---
NANDA RN NOTES PER EXTRACORPOREAL TECHNICIAN PT IS HAVING LOTS OF PVC'S AND PAC'S WITH SINUS RHYTHM HR 70. MAG 1.9, K 3.6. INFORMED KHANH DNP. NNO GIVEN BY KHANH. JUST CONTINUE TO MONITOR.
[2020-02-17] VITALS: BP 104/61
[2020-02-17 04:00] VITALS: BP 163/97
[2020-02-17] MEDS: AZTREONAM 2 G in IV NS 0.9% 100 ML IV SCH (04:35)
[2020-02-17 06:22] LABS: BASOPHILS % (AUTO) 0.3 % (0.0-2.0); EOSINOPHILS % (AUTO) 0.7 % (0.0-6.0); HEMATOCRIT 30 % (39-51); HEMOGLOBIN 10.2 g/dL (13.5-17.5); LYMPHOCYTES # (AUTO) 0.7 /CMM (0.8-4.8); LYMPHOCYTES % (AUTO) 8.5 % (20.0-44.0); MEAN CORPUSCULAR HGB CONC 34 g/dl (31.0-36.0); MEAN CORPUSCULAR VOLUME 90 fL (80-96); MONOCYTES # (AUTO) 0.7 /CMM (0.1-1.30); MONOCYTES % (AUTO) 8.1 % (2.0-12.0); NEUTROPHILS # (AUTO) 6.8 /CMM (1.8-8.9); NEUTROPHILS % (AUTO) 82.4 % (43.0-81.0); PLATELET COUNT (AUTO) 151 /CMM (150-450); RED BLOOD CELL COUNT(AUTO) 3.37 MIL/uL (4.5-6.0); WHITE BLOOD COUNT (AUTO) 8.3 K/uL (4.3-11.0)
[2020-02-17 06:42] LABS: ALBUMIN 2.2 g/dL (3.4-5.0); BILIRUBIN,TOTAL 0.3 mg/dL (0.2-1.0); CREATININE 1.1 mg/dL (0.6-1.3); MAGNESIUM 1.8 mg/dL (1.8-2.4); PHOSPHORUS 2.5 mg/dL (2.5-4.9); POTASSIUM 3.3 mmol/L (3.5-5.1); TOTAL PROTEIN, SERUM 5.9 g/dL (6.4-8.2)
--- NOTE | 2020-02-17 06:45 | NUR ---
NANDA RN CLOSING NOTES PT IS IN BED SLEEPING WITH NO SIGNS OF DISTRESS. HE ON 2 LPM NASAL CANNULA SATURATING AT 97%. PT IS ON A TELE MONITOR HR 65 SINUS WITH PAC'S. NO EDEMA NOTED. 18 GUAGE RAC IS INTACT WITH NO SIGNS OF INFILTRATION. TKO. HOB ELEVATED. BED IN LOWEST AND LOCKED POSITION. BED ALARM ACTIVATED. ALL OTHER VSS. WILL GIVE REPORT FOR YASMINE TO DAY SHIFT NURSE.
[2020-02-17] MEDS: LEVOTHYROXINE SODIUM 75 MCG TABLET PO SCH (07:30)
--- NOTE | 2020-02-17 07:30 | NUR ---
RN OPENING NOTE PATIENT REMAINS IN ROOM IN NO SIGNS OF RESPIRATORY DISTRESS. PATIENT SATURATING 97%. BLOOD PRESSURE ELEVATED,160/104 AND PULSE 62. LUCILA PRYOR DNP MADE AWARE WITH NO NEW ORDERS AT THIS TIME. LUCILARODRIGO PRYOR UPDATED ON THE PLAN OF CARE. PATIENT DENIES ANY PAIN OR DISCOMFORT. TURNED AND REPOSITIONED FOR COMFORT. SAFETY PRECAUTIONS IN PLACE AND COMFORT MEASURES RENDERED. BED IN LOWEST POSITION, CALL LIGHT WITHIN REACH, BREAKS ON, SIDE RAILS UP. ALL NEEDS ATTENDED, MEDICATIONS GIVEN SCHEDULED AND ORDERED ; SHIFT ASSESSMENT/BEDBATH/SKIN CARE DONE. PATIENT KEPT CLEAN AND DRY. WILL CONT TO MONITOR
[2020-02-17 08:00] VITALS: BP 161/104
[2020-02-17] MEDS: PANTOPRAZOLE 40 MG VIAL IV SCH (08:32)
[2020-02-17] MEDS: ENOXAPARIN SODIUM 40 MG/0.4 ML DISP.SYRIN SQ SCH (08:32)
[2020-02-17] MEDS: ESCITALOPRAM OXALATE (10 MG) 10 MG TABLET PO SCH (08:33)
--- NOTE | 2020-02-17 10:06 | NUR ---
WOUND CARE CONSULT: REVIEWED CHART, NURSING DOCUMENTATION AND PHOTOS WHICH SHOW SCROTAL REDNESS, PRESENT ON ADMISSION. RECOMMENDATIONS MADE FOR SKIN PROTECTION. DISCUSSED WITH NURSING STAFF. ISOFLEX LOW AIRLOSS BED TO BE PLACED WHEN AVAILABLE. PER SOCIAL SCIENCES DEPARTMENT CHAIR, PT MOVES ABOUT IN BED. WILL SEE PRN. IN AGREEMENT WITH PLAN OF CARE.
[2020-02-17 12:00] VITALS: BP 162/97
[2020-02-17] MEDS: MEROPENEM 1 G in IV NS 0.9% 100 ML IV SCH ×2 (13:09→20:27)
[2020-02-17] MEDS: LEVOFLOXACIN 750 MG /D5W 150ML 750 MG in PREMIX 1 EA IV SCH (13:10)
[2020-02-17] MEDS: POTASSIUM CHLORIDE 20 MEQ TAB.PRT.SR PO SCH ×2 (13:10→13:11)
[2020-02-17] MEDS: SOD FERRIC GLUC 125 MG in IV NS 0.9% 100 ML IV SCH (13:29)
[2020-02-17 16:00] VITALS: BP 167/88
[2020-02-17] MEDS: CLOTRIMAZOLE 1% 15 GM TUBE TP SCH (16:18)
--- NOTE | 2020-02-17 18:57 | NUR ---
RN CLOSING NOTE PATIENT REMAINS IN ROOM IN NO SIGNS OF RESPIRATORY DISTRESS. PATIENT SATURATING 98%. MEALS TAKEN WITH GOOD APPETITE. PATIENT DENIES ANY PAIN OR DISCOMFORT. TURNED AND REPOSITIONED FOR COMFORT. SAFETY PRECAUTIONS IN PLACE AND COMFORT MEASURES RENDERED. BED IN LOWEST POSITION, CALL LIGHT WITHIN REACH, BREAKS ON, SIDE RAILS UP. ALL NEEDS ATTENDED, MEDICATIONS GIVEN SCHEDULED AND ORDERED ; SHIFT ASSESSMENT/BEDBATH/SKIN CARE DONE. PATIENT KEPT CLEAN AND DRY. WILL ENDORSE TO PRN OCCUPATIONAL THERAPIST RN
--- NOTE | 2020-02-17 19:30 | NUR ---
RN OPENING NOTES: Rec'd pt resting in bed, A&Ox3. On 2LPM NC tolerating well. No SOB or respiratory distress noted. On isolation for R/O Covid. SR on tele monitor. IV site on left hand #22 patent and flushed. Dressing c/d/i. Safety measures in place. Will continue to monitor.
[2020-02-17 20:00] VITALS: BP 184/93
[2020-02-17] MEDS: ACETAMINOPHEN 325 MG TABLET PO PRN (20:30)
[2020-02-17] MEDS: TEMAZEPAM 15 MG CAPSULE PO PRN (21:06)
--- NOTE | 2020-02-17 21:07 | NUR ---
RN NOTE: Pt requested sleeping pill. Restoril 15mg PRN given as ordered. Will continue to monitor.
--- NOTE | 2020-02-17 21:32 | NUR ---
RN NOTE: Pt's BP 184/93. 2130: Paged Luis Alberto Rivas to give update on pt's BP. NNO at this time. Noted.
[2020-02-18] VITALS: BP 166/97
--- NOTE | 2020-02-18 02:43 | NUR ---
RN NOTE: Pt's Covid result came back neg. Order to transfer to [id number]. Will transfer at 0600.
[2020-02-18 04:00] VITALS: BP 173/85
[2020-02-18] MEDS: MEROPENEM 1 G in IV NS 0.9% 100 ML IV SCH ×3 (04:27→20:49)
--- NOTE | 2020-02-18 05:31 | NUR ---
TEODORA NOTE: Gave report to TEODORA Sanchez for YASMINE.
--- NOTE | 2020-02-18 06:00 | NUR ---
DATABASE MANAGER NOTES RECEIVED PATIENT FROM NANDA, ALERT AND ORIENTED X 3. BREATHING REGULAR AND UNLABORED ON OXYGEN AT 2L/MIN VIA NASAL CANNULA. LEFT HAND IV LINE INTACT AND INFUSING WELL. COMPLAINED OF 3/10 NECK PAIN, TYLENOL 650MG GIVEN BY MOUTH. NON-PHARMACOLOGICAL INTERVENTIONS PROVIDED. BED LOW AND LOCKED ON SEMI FOWLERS POSITION. CALL LIGHT IN REACH. WILL CONTINUE TO MONITOR.
--- NOTE | 2020-02-18 06:01 | NUR ---
RN NOTE: Transferred pt via ACLS protocol w/ help of SUPERVISOR VENDOR QUALITY. Pt stable.
[2020-02-18] MEDS: ACETAMINOPHEN 325 MG TABLET PO PRN ×2 (06:20→20:49)
--- NOTE | 2020-02-18 06:50 | NUR ---
PRODUCTION SCHEDULER NOTES PATIENT IN BED ALERT AND ORIENTED X 3. AFEBRILE WITH NO S/S OF DISTRESS OBSERVED. MAINTAINED ON CARDIAC MONITORING WITH NSR WITH PVC'S AT 80bpm. WILL ENDORSE TO MORNING SHIFT FOR YASMINE.
[2020-02-18 06:58] LABS: BASOPHILS % (AUTO) 0.2 % (0.0-2.0); EOSINOPHILS % (AUTO) 0.7 % (0.0-6.0); HEMATOCRIT 30 % (39-51); LYMPHOCYTES # (AUTO) 0.8 /CMM (0.8-4.8); LYMPHOCYTES % (AUTO) 11.2 % (20.0-44.0); MEAN CORPUSCULAR HGB CONC 33 g/dl (31.0-36.0); MEAN CORPUSCULAR VOLUME 90 fL (80-96); MONOCYTES # (AUTO) 0.7 /CMM (0.1-1.30); MONOCYTES % (AUTO) 8.9 % (2.0-12.0); NEUTROPHILS # (AUTO) 5.9 /CMM (1.8-8.9); PLATELET COUNT (AUTO) 168 /CMM (150-450); RED BLOOD CELL COUNT(AUTO) 3.34 MIL/uL (4.5-6.0); WHITE BLOOD COUNT (AUTO) 7.5 K/uL (4.3-11.0)
[2020-02-18 07:05] LABS: CREATININE 0.8 mg/dL (0.6-1.3); MAGNESIUM 1.8 mg/dL (1.8-2.4); PHOSPHORUS 2.5 mg/dL (2.5-4.9); POTASSIUM 3.8 mmol/L (3.5-5.1)
[2020-02-18 07:16] LABS: C-REACTIVE PROTEIN 9.9 mg/dL (0.0-0.9)
--- NOTE | 2020-02-18 07:40 | NUR ---
TELE/RN OPENING NOTES RECEIVED PATIENT ON BED. NO APPARENT DISTRESS NOTED. DENIES PAIN AT THIS TIME. PATIENT ON TELE MONITOR SR 62 BPM. WILL CONTINUE TO MONITOR.
[2020-02-18 08:00] VITALS: BP 169/106
[2020-02-18] MEDS: ESCITALOPRAM OXALATE (10 MG) 10 MG TABLET PO SCH (08:37)
[2020-02-18] MEDS: LEVOTHYROXINE SODIUM 75 MCG TABLET PO SCH (08:37)
[2020-02-18] MEDS: ENOXAPARIN SODIUM 40 MG/0.4 ML DISP.SYRIN SQ SCH (08:38)
[2020-02-18] MEDS: CLOTRIMAZOLE 1% 15 GM TUBE TP SCH ×2 (08:38→17:44)
[2020-02-18] MEDS ORDERED: AMLODIPINE BESYLATE 5 MG TABLET PO SCH (12:00)
[2020-02-18] MEDS: VALSARTAN 80 MG TABLET PO SCH (12:19)
[2020-02-18] MEDS: SOD FERRIC GLUC 125 MG in IV NS 0.9% 100 ML IV SCH (14:45)
[2020-02-18 18:13] VITALS: BP_SYST 135; BP_SYST 169; BP_DIAS 106; BP_DIAS 86
--- NOTE | 2020-02-18 18:44 | NUR ---
MS/RN CLOSING NOTES PATIENT IN BED. ALERT AND ORIENTED X3. PATIENT IN NO APPARENT RESPIRATORY DISTRESS NOTED. DENIES PAIN AT THIS TIME. IV ACCESS AT LEFT HAND # 22 G PATENT AND INTACT. SEEN AND EXAMINED BY MD WITH ORDERS MADE AND CARRIED OUT. ALL DUE MEDICATION WAS GIVEN. SAFETY PRECAUTION IN PLACED. CHECKED PATIENT EVERY 2 HOURS. BED IN LOWEST POSITION AND LOCKED. SIDE RAILS UP X 2. CALL LIGHT WITHIN REACH. WILL ENDORSED TO POULTRY HUSBANDMAN FOR YASMINE.
[2020-02-18 20:00] VITALS: BP 134/95
--- NOTE | 2020-02-18 20:09 | NUR ---
MS RN NOTES RECEIVED PATIENT IN BED, AWAKE, CONSCIOUS, COOPERATIVE, HOB ELEVATED, O2 @ 2LPM VIA NASAL CANNULA, UNLABORED BREATHING, NO SIGNS OF RESPIRATORY DISTRESS, IV ACCESS LEFT HAND #22G, SIDE RAILS UP.
[2020-02-18] MEDS: TEMAZEPAM 15 MG CAPSULE PO PRN (21:20)
[2020-02-19] MEDS: MEROPENEM 1 G in IV NS 0.9% 100 ML IV SCH ×3 (04:03→20:05)
--- NOTE | 2020-02-19 06:47 | NUR ---
MS RN CLOSING NOTES ENDORSED PATIENT IN BED, AWAKE, CONSCIOUS, COOPERATIVE, HOB ELEVATED, O2 @ 2LPM VIA NASAL CANNULA, UNLABORED BREATHING, NO SIGNS OF RESPIRATORY DISTRESS, IV ACCESS LEFT HAND #22G, NO REDNESS OR INFILTRATION NOTED, DUE MEDS GIVEN, SIDE RAILS UP FOR SAFETY.
[2020-02-19] MEDS: LEVOTHYROXINE SODIUM 75 MCG TABLET PO SCH (07:41)
--- NOTE | 2020-02-19 07:45 | NUR ---
MS/RN - Assessment Patient is alert and oriented x 3, states feeling better, afebrile, denies pain, no apparent distress, uses supplemental oxygen at 2lpm via NC. Saline lock on the left hand is patent and intact with no signs of infiltration. No labs ordered for today. Fall and aspiration precautions maintained. Plan for Acute Rehab evaluation. Will continue with current medical management.
[2020-02-19 08:00] VITALS: BP 111/68
[2020-02-19] MEDS: ESCITALOPRAM OXALATE (10 MG) 10 MG TABLET PO SCH (08:06)
[2020-02-19] MEDS: VALSARTAN 80 MG TABLET PO SCH (08:06)
[2020-02-19] MEDS: ENOXAPARIN SODIUM 40 MG/0.4 ML DISP.SYRIN SQ SCH (08:07)
[2020-02-19] MEDS: CLOTRIMAZOLE 1% 15 GM TUBE TP SCH ×2 (08:08→16:28)
[2020-02-19 08:35] VITALS: BP 111/68
[2020-02-19] MEDS ORDERED: AMLODIPINE BESYLATE 5 MG TABLET PO SCH (09:00)
[2020-02-19] MEDS: SOD FERRIC GLUC 125 MG in IV NS 0.9% 100 ML IV SCH (14:38)
--- NOTE | 2020-02-19 18:41 | NUR ---
MS/RN - End of shift summary No significant change in condition seen, afebrile, denies pain, no apparent distress, comfortable on 2lpm via NC. Patient for discharge to [facility] dylan p/u time by ambulance at 20:00. Called to give report to [facility] ([phone]) x 2, but unable to reach the RN. They told me that they will just call me back. Natalia is aware of discharge to ARU. All discharge papers done. Patient refused skin photos to be taken. Will endorse to night RN for completion of discharge.
[2020-02-19] MEDS: ACETAMINOPHEN 325 MG TABLET PO PRN (19:02)
--- NOTE | 2020-02-19 19:26 | NUR ---
MS RN OPENING NOTES PATIENT AWAKE IN BED. A/OX3. ON 2L NC. NO C/O SOB OR PAIN AT THIS TIME; BREATHING IS EVEN AND UNLABORED. IV PRESENT ON LEFT HAND, SIZE 22, INTACT & PATENT, HEP LOCKED. PER DAY SHIFT RN, PATIENT TO BE TRANSFERRED TO [facility] FOR CONTINUATION OF CARE; RIBBING MACHINE OPERATOR TIME 2129. SAFETY MEASURES IN PLACE AND PATIENT'S NEEDS MET. BED LOCKED, ALARM ON, SIDE RAILS X2, CALL LIGHT WITHIN REACH. WILL CONTINUE TO MONITOR.
[2020-02-19 20:00] VITALS: BP 125/94
--- NOTE | 2020-02-19 20:41 | NUR ---
MS RN NOTES REPORT GIVEN TO MALA ARAIZA AT [facility]
--- NOTE | 2020-02-19 21:32 | NUR ---
MS MONUMENT SETTER NOTES PATIENT DISCHARGED TO [facility]. TRANSPORTATION VIA [facility]. PATIENT IN STABLE CONDITION. ALL BELONGINGS WITH PATIENT. IV ON LEFT HAND, SIZE [address] FOR CONTINUATION OF IV ANTIBIOTICS. ID BAND REMOVED. DISCHARGE INSTRUCTIONS GIVEN TO ROBB MOODY. VITAL SIGNS - BP: 153/95, HR: 65, RR: 20 SPO2: 96 ON RA. TEMP: 97.5.
== END 2020-02-19 21:36 | DRG 291 ==
LOC: ER 07:52 → TELE1 11:17 → TELE-TD 15:13 → TELE1 02-17 14:09 → TELE 02-18 05:42 → MED 02-18 08:48
PROVIDERS: ADMIT Hospitalist; ATTEND Internal Medicine
DX: I11.0 Hypertensive heart disease with heart failure (principal); A41.51 Sepsis due to Escherichia coli [E. coli]; G93.41 Metabolic encephalopathy; E43 Unspecified severe protein-calorie malnutrition; I50.31 Acute diastolic (congestive) heart failure; J18.9 Pneumonia, unspecified organism; R65.20 Severe sepsis without septic shock; N39.0 Urinary tract infection, site not specified; J90 Pleural effusion, not elsewhere classified; Z16.12 Extended spectrum beta lactamase (ESBL) resistance; N17.9 Acute kidney failure, unspecified; I48.91 Unspecified atrial fibrillation; I34.1 Nonrheumatic mitral (valve) prolapse; E78.5 Hyperlipidemia, unspecified; I70.0 Atherosclerosis of aorta; I73.9 Peripheral vascular disease, unspecified; Z88.0 Allergy status to penicillin; Z95.2 Presence of prosthetic heart valve; Z82.49 Family history of ischemic heart disease and other diseases of the circulatory system; N40.0 Benign prostatic hyperplasia without lower urinary tract symptoms; E03.9 Hypothyroidism, unspecified; E87.6 Hypokalemia; Z79.899 Other long term (current) drug therapy; D64.9 Anemia, unspecified; E86.0 Dehydration; K82.8 Other specified diseases of gallbladder; D50.9 Iron deficiency anemia, unspecified; D69.6 Thrombocytopenia, unspecified; K27.9 Peptic ulcer, site unspecified, unspecified as acute or chronic, without hemorrhage or perforation; K52.9 Noninfective gastroenteritis and colitis, unspecified; K80.20 Calculus of gallbladder without cholecystitis without obstruction; N28.1 Cyst of kidney, acquired
CPT/HCPCS: 36415; 71045-TC; 71250-TC; 76705-TC; 80048-TC; 80053-TC; 80061-TC; 80076-TC; 81000-TC; 82550-TC; 82728-TC; 83540-TC; 83605-TC; 83615-TC; 83735-TC; 83880; 84100-TC; 84439-TC; 84443-TC; 84484-TC; 85025-TC; 85378-TC; 85385-TC; 85730-TC; 86140-TC; 87040-TC; 87081-TC; 87086-TC; 87186-TC; 97110-TC; 97116-TC; 97530-TC; A4216; C9113; G0378; J1650; J1940; J1956; J2185; J2916; J3490; J7030; J7040; J7050; J7060; U0003-CS

== ENCOUNTER 2020-09-22 10:44 | Inpatient (IN) | payer MEDICARE, BC ==
[~2020-09-22] VITALS: Ht 172.7 cm; Wt 87.3 kg
[~2020-09-22 10:44] MED LIST changes: -ACET-2605 PO; -AMIO200T4 PO; +AMIO200T5 PO; -AMLO10TA7 PO; -HYDR-4077 PO; -Linezolid PO; -NEUTRA PHOS PO; -Polyvinyl Alcohol EACHEYE; -VALS80TA2 PO
--- NOTE | 2020-09-22 10:50 | NUR ---
THE PATIENT IS BIB C/O BILATERAL EDEMA AND FAILURE TO THRIVE. PATIENT IS ALERT AND ORIENTED X3. THE PATIENT`S RESPIRATION REGULAR AND UNLABORED. NO MANIFESTATION OF PAIN NOTED. WARM BLANKET PROVIDED FOR COMFORT. WILL CONTINUE TO MONITOR.
[2020-09-22 11:35] LABS: BASOPHILS % (AUTO) 0.2 % (0.0-2.0); EOSINOPHILS % (AUTO) 0.9 % (0.0-6.0); HEMATOCRIT 44 % (39-51); HEMOGLOBIN 14.6 g/dL (13.5-17.5); LYMPHOCYTES # (AUTO) 1.2 /CMM (0.8-4.8); LYMPHOCYTES % (AUTO) 13.8 % (20.0-44.0); MEAN CORPUSCULAR HGB CONC 33 g/dl (31.0-36.0); MEAN CORPUSCULAR VOLUME 91 fL (80-96); MONOCYTES # (AUTO) 0.6 /CMM (0.1-1.30); MONOCYTES % (AUTO) 7.1 % (2.0-12.0); NEUTROPHILS # (AUTO) 6.9 /CMM (1.8-8.9); PLATELET COUNT (AUTO) 148 /CMM (150-450); RED BLOOD CELL COUNT(AUTO) 4.85 MIL/uL (4.5-6.0); WHITE BLOOD COUNT (AUTO) 8.9 K/uL (4.3-11.0)
[2020-09-22] MEDS ORDERED: OXYC1TAB12 PO (11:41)
[2020-09-22] MEDS ORDERED: DOXA2TAB2 PO (11:41)
[2020-09-22] MEDS ORDERED: HYDR25TA4 PO (11:41)
[2020-09-22] MEDS ORDERED: DOXY100C41 PO (11:41)
[2020-09-22] MEDS ORDERED: VALS160T29 PO (11:41)
[2020-09-22] MEDS ORDERED: DOCU-141 PO (11:42)
[2020-09-22 11:51] LABS: CALCIUM, SERUM 10.8 mg/dL (8.5-10.1); CARBON DIOXIDE 26 mmol/L (21-32); CHLORIDE 104 mmol/L (98-107); GLUCOSE 95 mg/dL (74-106); POTASSIUM 3.6 mmol/L (3.5-5.1); SODIUM SERUM 140 mmol/L (136-145); UREA NITROGEN, BLOOD 24 mg/dL (7-18)
[2020-09-22] MEDS ORDERED: oxyCODONE/APAP (5/325 MG) 1 UDTAB TABLET ONE (11:59)
[2020-09-22] MEDS ORDERED: oxyCODONE/APAP (5/325 MG) 1 UDTAB TABLET PO ONE (12:00)
[2020-09-22 12:06] LABS: ALANINE AMINOTRANSFERASE 18 U/L (12-78); ALKALINE PHOSPHATASE 68 U/L (46-116); ASPARTATE AMINOTRANSFERASE 16 U/L (15-37); B-TYPE NATRIURETIC PEPTIDE 311 PG/ML (0-125); BILIRUBIN,DIRECT 0.2 mg/dL (0.0-0.2); BILIRUBIN,TOTAL 0.9 mg/dL (0.2-1.0); TOTAL PROTEIN, SERUM 7.3 g/dL (6.4-8.2)
--- NOTE | 2020-09-22 12:27 | NUR ---
[facility] CALLED GROUNDSKEEPING MAINTENANCE PAGED.
--- NOTE | 2020-09-22 13:03 | NUR ---
COVID SWAB DONE AND SENT IT TO THE LAB.
[2020-09-22] MEDS ORDERED: HYDROCODONE/APAP 5/325MG TABLET PO PRN (13:30)
[2020-09-22] MEDS ORDERED: MAG HYDROX/AL HYDROX/SIMETH 30 ML UDC PO PRN (13:30)
[2020-09-22] MEDS ORDERED: MORPHINE SULFATE INJ 2 MG/ML DISP.SYRIN IV PRN (13:30)
[2020-09-22] MEDS ORDERED: ACETAMINOPHEN 325 MG TABLET PO PRN (13:30)
[2020-09-22] MEDS ORDERED: ONDANSETRON HCL/PF 4 MG/2 ML VIAL IVP PRN (13:30)
[2020-09-22] MEDS ORDERED: Z GUARD REMEDY 2 OZ OINT TP PRN (13:30)
[2020-09-22] MEDS ORDERED: MAGNESIUM HYDROXIDE 30 ML UDC PO PRN (13:30)
--- NOTE | 2020-09-22 13:57 | NUR ---
received a call from the lab regarding covid result "negative".
--- NOTE | 2020-09-22 14:46 | NUR ---
Room 307-2.
--- NOTE | 2020-09-22 15:09 | NUR ---
BEDSIDE REPORT GIVEN TO NURSE SANTOYO. THE PATIENT TRANSFERED TO [facility] PER POLICY. THE PATIENT LEFT ER IN STABLE CONDITION.
--- NOTE | 2020-09-22 15:40 | NUR ---
RN MS NOTES RECEIVED PT FROM E.R. STAFF VIA KARIS, PT IS AWAKE, ALERT AND ORIENTED, NO COMPLAINT OF PAIN, RESPIRATIONS NORMAL, ON ROOM AIR SATURATING WELL AT 98%, ASSISTED TO BED, MADE COMFORTABLE, ROOM SET UP ORIENTATION PROVIDED TO PT, VERBALIZED UNDERSTANDING, ADMITTING ORDERS RECEIVED FROM MD, KEPT PT COMFORTABLE AND AIRCRAFT ELECTRONICS TECHNICAL OFFICER BED, VITALS TAKEN AND RECORDED.
[2020-09-22 16:00] VITALS: BP 128/70
[2020-09-22] MEDS: DOCUSATE SODIUM 100 MG CAPSULE PO SCH (17:00)
[2020-09-22] MEDS: DOXAZOSIN MESYLATE (1 MG) 1 MG TABLET PO SCH (17:46)
[2020-09-22] MEDS ORDERED: QUETIAPINE FUMARATE 100 MG TABLET PO SCH (18:00)
--- NOTE | 2020-09-22 18:17 | NUR ---
RN MS NOTES PT IN BED, AWAKE, ALERT AND ORIENTED, NO COMPLAINT AT THIS TIME, RESPIRATIONS NORMAL, TOLERATES ROOM AIR, ASSISTED WITH TOILETING NEEDS, PM MEDS GIVEN ORDERED, PM CARE PROVIDED, KEPT WARM AND COMFORTABLE IN BED.
[2020-09-22 20:52] VITALS: BP 128/88
[2020-09-22] MEDS: QUETIAPINE FUMARATE 100 MG TABLET PO SCH ×2 (21:27→22:00)
[2020-09-22] MEDS: oxyCODONE/APAP (5/325 MG) 1 UDTAB TABLET PO PRN (21:28)
--- NOTE | 2020-09-22 22:12 | NUR ---
duplicate seroquel missed dose on emar. seroquel 150 mg already administered.
--- NOTE | 2020-09-22 22:30 | NUR ---
OXYGEN APPLIED WHILE PT SLEEPING PER PT REQUEST. PT STATES HE USES CPAP AT HOME. STATES, "IF I CANT USE MY OWN MACHINE, I USUALLY WEAR SOME OXYGEN WHILE I SLEEP." 1.5LNC APPLIED OT PATIENT FOR USE WHILE HE IS SLEEPING WILL CONT TO MONITOR.
[2020-09-23 00:41] VITALS: BP 140/99
--- NOTE | 2020-09-23 03:10 | NUR ---
vte score score of 4 no anticoag ordered. notified marielle rivers, does not wish to order anything at this time. prefers day time rounding physician/practitioner to address. Addendum: 09/23/20 at 0314 by ARINA CRESPO RN will endorse to sosa lopez.
[2020-09-23 04:49] VITALS: BP 145/99
[2020-09-23] MEDS: oxyCODONE/APAP (5/325 MG) 1 UDTAB TABLET PO PRN ×2 (06:06→20:11)
[2020-09-23 06:30] LABS: BASOPHILS % (AUTO) 0.1 % (0.0-2.0); HEMATOCRIT 38 % (39-51); HEMOGLOBIN 12.9 g/dL (13.5-17.5); LYMPHOCYTES # (AUTO) 1.4 /CMM (0.8-4.8); LYMPHOCYTES % (AUTO) 23.2 % (20.0-44.0); MEAN CORPUSCULAR HGB CONC 34 g/dl (31.0-36.0); MEAN CORPUSCULAR VOLUME 89 fL (80-96); MONOCYTES # (AUTO) 0.5 /CMM (0.1-1.30); MONOCYTES % (AUTO) 9.1 % (2.0-12.0); NEUTROPHILS # (AUTO) 3.8 /CMM (1.8-8.9); NEUTROPHILS % (AUTO) 65.6 % (43.0-81.0); PLATELET COUNT (AUTO) 138 /CMM (150-450); RED BLOOD CELL COUNT(AUTO) 4.19 MIL/uL (4.5-6.0); WHITE BLOOD COUNT (AUTO) 5.9 K/uL (4.3-11.0)
[2020-09-23 07:06] LABS: ALBUMIN 3.1 g/dL (3.4-5.0); BILIRUBIN,TOTAL 0.6 mg/dL (0.2-1.0); CALCIUM, SERUM 9.8 mg/dL (8.5-10.1); CREATININE 0.9 mg/dL (0.6-1.3); MAGNESIUM 2.1 mg/dL (1.8-2.4); PHOSPHORUS 2.6 mg/dL (2.5-4.9); POTASSIUM 3.7 mmol/L (3.5-5.1); TOTAL PROTEIN, SERUM 5.9 g/dL (6.4-8.2)
[2020-09-23 07:10] LABS: THYROID STIMULATING HORMONE 1.545 uIU/mL (0.358-3.74)
--- NOTE | 2020-09-23 07:42 | NUR ---
WOUND CARE CONSULT: RECEIVED WOUND CONSULT FROM DR EDWARDS FOR LEFT INNER THIGH REDNESS AND SKIN IRRITATION, PRESENT ON ADMISSION. PT IS INCONTINENT. RECOMMENDATIONS MADE FOR SKIN PROTECTION AND CARE. DISCUSSED WITH NURSING STAFF. IN AGREEMENT WITH PLAN OF CARE. Addendum: 09/23/20 at 0743 by BRIEN CRENSHAW WNDNU Amended: Links added.
--- NOTE | 2020-09-23 07:46 | NUR ---
MS RN OPENING NOTE RECEIVED PATIENT IN BED. A/O X4. NC O2 @1.5 LPM. NO SOB NOTED. NO S/S OF RESPIRATORY DISTRESS. DENIES ANY PAIN AND DISCOMFORT AT THIS TIME. IV ACCESS ON R HAND #22 G, INTACT. SAFETY MEASURES MAINTAINED. BED IN LOWEST POSITION, BRAKES LOCKED. SIDE RAILS UP X2. CALL LIGHT WITHIN REACH. WILL CONTINUE PLAN OF CARE.
[2020-09-23 08:00] VITALS: BP 166/108
[2020-09-23] MEDS: ESCITALOPRAM OXALATE (10 MG) 10 MG TABLET PO SCH (08:13)
[2020-09-23] MEDS: DOCUSATE SODIUM 100 MG CAPSULE PO SCH ×2 (08:14→16:13)
[2020-09-23] MEDS: LEVOTHYROXINE SODIUM 75 MCG TABLET PO SCH (08:14)
[2020-09-23] MEDS: HYDROCHLOROTHIAZIDE 25 MG TABLET PO SCH (08:14)
[2020-09-23] MEDS ORDERED: VALSARTAN 80 MG TABLET PO SCH (09:00)
[2020-09-23 12:00] VITALS: BP 166/108
--- NOTE | 2020-09-23 14:38 | NUR ---
office services assistant consult: office services assistant consult requested for home situation and discharge plan. Patient is a 74-year-old, white male. SW met with the patient in his assigned room on the [facility] surgical unit. Patient was alert and oriented x4. Patient is calm, with a flat affect and is well-groomed. SW discussed discharge plan with the patient and patient stated he would be returning to his previous living arrangements with his . SW asked the patient about his relationship with his and patient stated, we have a good relationship and she takes care of me. Patient stated that he is ambulatory with a walker and his assists him with his ADLs. SW asked the patient about his finances and the patient stated he is retired and receives pension. Patient stated he has a history of depression and anxiety and takes Lexapro and Seroquel. Patient denied any current suicidal or homicidal ideations. Patient stated that his will be able to pick him up from the hospital when he is discharged. SW will remain available to the patient, as needed, and will work with case management, as needed, to ensure a safe and proper discharge for the patient. SW asked the patient if SW could contact the patients to discuss coordination of care with the . Patient declined for this SW to contact his , and stated that he already spoke with his who will be picking him up from the hospital when patient is discharged.
--- NOTE | 2020-09-23 15:20 | NUR ---
MS RN NOTE ORDERED LOVENOX 40 SQ DAILY PER MONO LEWIS.
--- NOTE | 2020-09-23 15:58 | NUR ---
MS RN NOTE PLACED A CONDOM CATH ON THE PT. MONO LEWIS IS MADE AWARE.
[2020-09-23] MEDS: DOXAZOSIN MESYLATE (1 MG) 1 MG TABLET PO SCH (17:08)
--- NOTE | 2020-09-23 18:39 | NUR ---
MS RN CLOSING NOTE PATIENT RESTING IN BED. A/O X4. ON ROOM AIR, TOLERATING WELL. NO SOB NOTED. NO S/S OF RESPIRATORY DISTRESS. IV ACCESS ON R HAND #22 G, INTACT AND PATENT. CONDOM CATH, INTACT. ALL NEEDS HAVE BEEN MET. ROUTINE MEDS WERE GIVEN ORDERED. SAFETY MEASURES MAINTAINED. BED IN LOWEST POSITION, BRAKES LOCKED. SIDE RAILS UP X2. CALL LIGHT WITHIN REACH. WILL ENDORSE PLAN OF CARE TO ONCOMING SHIFT.
[2020-09-23 20:00] VITALS: BP 143/97
[2020-09-23] MEDS: QUETIAPINE FUMARATE 100 MG TABLET PO SCH (21:29)
[2020-09-23] MEDS: TEMAZEPAM 15 MG CAPSULE PO PRN (21:29)
[2020-09-23] MEDS: ENOXAPARIN SODIUM 40 MG/0.4 ML DISP.SYRIN SQ SCH (21:53)
--- NOTE | 2020-09-24 06:11 | NUR ---
MS RN NOTES AWAKE & RESPONSIVE. NOT IN ANY DISTRESS. NO SOB NOTED. DENIES ANY PAIN OR DISCOMFORT AT THIS TIME. WITH IV-HL PATENT & INTACT. AM CARE DONE. MONITORED ACCORDINGLY. CALL LIGHT WITHIN REACH. BED IN LOWEST POSITION. SR UP X 3 WITH BED ALARM ON FOR SAFETY. WILL ENDORSE TO NEXT SHIFT.
[2020-09-24 06:31] LABS: BASOPHILS % (AUTO) 0.2 % (0.0-2.0); EOSINOPHILS % (AUTO) 2.5 % (0.0-6.0); HEMATOCRIT 38 % (39-51); LYMPHOCYTES # (AUTO) 1.6 /CMM (0.8-4.8); LYMPHOCYTES % (AUTO) 24.1 % (20.0-44.0); MEAN CORPUSCULAR HGB CONC 34 g/dl (31.0-36.0); MEAN CORPUSCULAR VOLUME 90 fL (80-96); MONOCYTES # (AUTO) 0.6 /CMM (0.1-1.30); MONOCYTES % (AUTO) 8.7 % (2.0-12.0); NEUTROPHILS # (AUTO) 4.2 /CMM (1.8-8.9); NEUTROPHILS % (AUTO) 64.5 % (43.0-81.0); PLATELET COUNT (AUTO) 141 /CMM (150-450); RED BLOOD CELL COUNT(AUTO) 4.25 MIL/uL (4.5-6.0); WHITE BLOOD COUNT (AUTO) 6.5 K/uL (4.3-11.0)
[2020-09-24 06:43] LABS: CALCIUM, SERUM 9.7 mg/dL (8.5-10.1); CREATININE 0.9 mg/dL (0.6-1.3); POTASSIUM 3.8 mmol/L (3.5-5.1)
[2020-09-24 08:00] VITALS: BP 152/97
--- NOTE | 2020-09-24 08:06 | NUR ---
MS RN OPENING NOTE RECEIVED PATIENT IN BED. AWAKE, A/O X4. NO SOB NOTED. NO S/S OF RESPIRATORY DISTRESS. DENIES ANY PAIN AND DISCOMFORT AT THIS TIME. IV ACCESS ON R HAND #22 G, INTACT. SAFETY MEASURES MAINTAINED. BED IN LOWEST POSITION, BRAKES LOCKED. SIDE RAILS UP X2. CALL LIGHT WITHIN REACH. WILL CONTINUE TO MONITOR.
[2020-09-24] MEDS: LEVOTHYROXINE SODIUM 75 MCG TABLET PO SCH (08:23)
[2020-09-24] MEDS: DOCUSATE SODIUM 100 MG CAPSULE PO SCH ×2 (08:23→17:14)
[2020-09-24] MEDS: VALSARTAN 80 MG TABLET PO SCH (08:24)
[2020-09-24] MEDS: HYDROCHLOROTHIAZIDE 25 MG TABLET PO SCH (08:25)
[2020-09-24] MEDS: ESCITALOPRAM OXALATE (10 MG) 10 MG TABLET PO SCH (08:25)
[2020-09-24] MEDS: oxyCODONE/APAP (5/325 MG) 1 UDTAB TABLET PO PRN (08:49)
[2020-09-24] MEDS ORDERED: VALS80TA2 PO (11:00)
[2020-09-24] MEDS ORDERED: TEMA15CA5 PO (11:00)
[2020-09-24 16:00] VITALS: BP 160/87
[2020-09-24] MEDS: CARBIDOPA/LEVODOPA 25/100 MG 1 UDTAB PO SCH (17:14)
[2020-09-24] MEDS: DOXAZOSIN MESYLATE (1 MG) 1 MG TABLET PO SCH (17:14)
[2020-09-24] MEDS ORDERED: PNEUMOCOCCAL 23-VAL P-SAC VAC 0.5 ML VIAL SQ ONE (17:30)
--- NOTE | 2020-09-24 18:43 | NUR ---
MS RN CLOSING NOTE PATIENT RESTING IN BED. A/O X4. ON ROOM AIR, TOLERATING WELL. NO SOB NOTED. NO S/S OF RESPIRATORY DISTRESS. IV ACCESS ON R HAND #22 G, INTACT AND PATENT. CONDOM CATH, INTACT. ALL NEEDS HAVE BEEN MET. ROUTINE MEDS GIVEN ORDERED. SAFETY MEASURES MAINTAINED. BED IN LOWEST POSITION, BRAKES LOCKED. SIDE RAILS UP X2. CALL LIGHT WITHIN REACH. PATIENT TO DISCHARGE TO [facility] @ 1930. REPORT GIVEN TO RECEIVING NURSE - SHE ASKED TO HAVE THE AMBULANCE STOP AT ER TO BE ADMITTED. WILL ENDORSE TO DEALER ACCOUNT MANAGER NURSE.
[2020-09-24 20:00] VITALS: BP 167/83
--- NOTE | 2020-09-24 20:00 | NUR ---
RN NOTES Received pt. awake on bed, ambulance is already at bedside ready to scrap picker the patient but patient BP was 170/128, pt was anxious .a/ox3, educate the patient that he needs to relax because it will also for his blood pressure to go down . talked to the platform material handling supervisor that were going to put the patient on will call. We'll just going to call them when patients blood pressure is already normal.
--- NOTE | 2020-09-24 20:20 | NUR ---
RN NOTES Informed Luis Alberto Rivas DNP regarding patient blood pressure of 170/128. got an order of Hydralazine 10mg pox1, order noted and carried out
[2020-09-24] MEDS ORDERED: hydrALAZINE HCL 10 MG TABLET PO ONE (20:30)
--- NOTE | 2020-09-24 20:45 | NUR ---
RN NOTES checked pt's blood pressure, still high 160/128, will rechecked again later
--- NOTE | 2020-09-24 21:25 | NUR ---
RN NOTES CHECKED PT.BLOOD PRESSURE STILL HIGH 170/110, WILL RECHECKED AGAIN
--- NOTE | 2020-09-24 21:45 | NUR ---
RN NOTES Farzaneh from [facility] called and informed him regarding pt's blood pressure 160/111, but informed her that I already gave patient Hydralazine 10mg po , and will give his night medication Seroquel. Farzaneh will talk to her rubber tire and tubes supervisor if they can admit this patient.
[2020-09-24] MEDS: QUETIAPINE FUMARATE 100 MG TABLET PO SCH (21:46)
[2020-09-24] MEDS: ENOXAPARIN SODIUM 40 MG/0.4 ML DISP.SYRIN SQ SCH (21:47)
--- NOTE | 2020-09-24 21:50 | NUR ---
RN NOTES MARLY CALLED BACK AND INFORMED ME THAT SHE ALREADY TALKED TO HER SCRIP CLERK AND THEY CANNOT ACCEPT THE PATIENT TONIGHT AND THEIR ADMISSION TIME IS UNTIL 10PM ONLY.
--- NOTE | 2020-09-24 22:10 | NUR ---
RN NOTES Informed Dr. Vines regarding the patient Blood Pressure of 160/111 after giving Hydralazine 10mg pox1. Dr Vines gave an order to hold the discharge tonight , order noted and carried out
[2020-09-24 23:00] VITALS: BP 116/76
[2020-09-24] MEDS ORDERED: TEMAZEPAM 7.5 MG CAPSULE ONE (23:28)
[2020-09-24] MEDS: TEMAZEPAM 15 MG CAPSULE PO PRN (23:35)
--- NOTE | 2020-09-24 23:45 | NUR ---
RN NOTES pt BLOOD PRESSURE WENT DOWN TO 117/78.
--- NOTE | 2020-09-25 06:32 | NUR ---
RN NOTES AWAKE, DENIES PAIN, NO SOB, MORNING CARE RENDERED, CALL LIGHT WITHIN REACH, SIDERAILSUPX2, PT. NEEDS ATTENDED
[2020-09-25] MEDS ORDERED: TEMAZEPAM 7.5 MG CAPSULE PO PRN (07:30)
[2020-09-25] MEDS: DOCUSATE SODIUM 100 MG CAPSULE PO SCH (08:13)
[2020-09-25] MEDS: LEVOTHYROXINE SODIUM 75 MCG TABLET PO SCH (08:13)
[2020-09-25] MEDS: CARBIDOPA/LEVODOPA 25/100 MG 1 UDTAB PO SCH (08:13)
[2020-09-25] MEDS: VALSARTAN 80 MG TABLET PO SCH (08:13)
[2020-09-25 08:14] VITALS: BP 151/99
[2020-09-25] MEDS: oxyCODONE/APAP (5/325 MG) 1 UDTAB TABLET PO PRN (08:14)
[2020-09-25] MEDS: HYDROCHLOROTHIAZIDE 25 MG TABLET PO SCH (08:21)
[2020-09-25] MEDS ORDERED: HYDR-4077 PO (08:36)
[2020-09-25] MEDS ORDERED: CARB1TAB21 PO (08:36)
[2020-09-25] MEDS ORDERED: ISOS20TA8 PO (08:36)
[2020-09-25] MEDS ORDERED: ISOSORBIDE DINITRATE (20MG) 20 MG TABLET PO SCH (09:00)
[2020-09-25] MEDS ORDERED: hydrALAZINE HCL 50 MG TABLET PO SCH (09:00)
--- NOTE | 2020-09-25 09:00 | NUR ---
Bp-112/78, p-72. Will hold bp meds.
[2020-09-25 09:35] VITALS: BP 112/78
[2020-09-25] MEDS: ESCITALOPRAM OXALATE (10 MG) 10 MG TABLET PO SCH (09:46)
--- NOTE | 2020-09-25 12:34 | NUR ---
[facility] given report Stacie/TEODORA.
--- NOTE | 2020-09-25 13:31 | NUR ---
2EMTs arrived to bead picker patient and given report include new prescription medication hydralazine. patient in stable condition bp-119/78, p-99.
--- NOTE | 2020-09-25 15:26 | NUR ---
RN Opening note Received patient in bed, AO x 3 able to responds all stimuli. Denies pain or distress, bpis 151/99, p-67 this morning. Respiratory even and unlabored in room air, no sob. Skin is warm to touch, keep clean/dry. [facility], wound picture taken. Keep elevated HOB for ensure airway and aspiration precaution,also lowest bed position for safety. Call light within reach, will continue to monitor.
== END 2020-09-25 14:00 | DRG 641 ==
LOC: ER 10:51 → MED 15:03
PROVIDERS: ADMIT Nurse Practitioner Acute Care; ATTEND Nurse Practitioner Acute Care
DX: E86.0 Dehydration (principal); D68.59 Other primary thrombophilia; N17.9 Acute kidney failure, unspecified; R62.7 Adult failure to thrive; E78.5 Hyperlipidemia, unspecified; K27.9 Peptic ulcer, site unspecified, unspecified as acute or chronic, without hemorrhage or perforation; Z20.822 Contact with and (suspected) exposure to COVID-19; Z95.2 Presence of prosthetic heart valve; F32.9 Major depressive disorder, single episode, unspecified; I73.9 Peripheral vascular disease, unspecified; E03.9 Hypothyroidism, unspecified; Z88.0 Allergy status to penicillin; Z79.899 Other long term (current) drug therapy; E83.52 Hypercalcemia; D69.6 Thrombocytopenia, unspecified; F41.9 Anxiety disorder, unspecified; N40.0 Benign prostatic hyperplasia without lower urinary tract symptoms; G89.29 Other chronic pain; Z82.49 Family history of ischemic heart disease and other diseases of the circulatory system; Z80.9 Family history of malignant neoplasm, unspecified; Z98.890 Other specified postprocedural states; G20 Parkinson's disease; Z74.09 Other reduced mobility; Z86.79 Personal history of other diseases of the circulatory system; R26.9 Unspecified abnormalities of gait and mobility; T50.2X5A Adverse effect of carbonic-anhydrase inhibitors, benzothiadiazides and other diuretics, initial encounter; Y92.9 Unspecified place or not applicable; I11.0 Hypertensive heart disease with heart failure; D50.9 Iron deficiency anemia, unspecified; I48.91 Unspecified atrial fibrillation
CPT/HCPCS: 36415; 71045-TC; 80048-TC; 80053-TC; 80061-TC; 80076-TC; 83605-TC; 83735-TC; 83880; 84100-TC; 84443-TC; 84484-TC; 85025-TC; 87040-TC; 87081-TC; 90732; 97110-TC; 97116-TC; 97530-TC; A4349; C9803; G0378; J1650; J2270

== ENCOUNTER 2020-11-24 15:40 | Emergency (ER) | payer MEDICARE, BC ==
[~2020-11-24] VITALS: Ht 172.7 cm; Wt 88.5 kg
[~2020-11-24 15:40] MED LIST changes: -AMIO200T5 PO; +CARB1TAB21 PO; +DOCU-141 PO; +DOXA2TAB2 PO; +DOXY100C41 PO; +HYDR-4077 PO; +HYDR25TA4 PO; +ISOS20TA8 PO; +OXYC1TAB12 PO; -PANT40TA49 PO; +TEMA15CA5 PO; +VALS80TA2 PO
[2020-11-24] MEDS ORDERED: LIDOCAINE HCL/PF 1% 30 ML VIAL TP ONE (16:00)
[2020-11-24] MEDS ORDERED: TDAP [DIPH/PERTUSSIS/TET] 0.5 ML VIAL IM ONE ×2 (16:00→16:37)
[2020-11-24] MEDS ORDERED: LIDOCAINE HCL/PF 1% 30 ML SDV ONE (16:03)
[2020-11-24] MEDS ORDERED: ACETAMINOPHEN ES 500 MG TABLET ONE (16:17)
--- NOTE | 2020-11-24 16:23 | NUR ---
BIBRA 878, PT REPORTED MECHANICAL FALL FROM PT'S ROLATOR. LACERATION NOTED ON BACK OF THE HEAD. PAIN SCALE OF 7/10. COMPLAINS ALSO OF URINARY FREQUENCY AND PAIN. A/O X 4. NO SOB OR ANY RESPIRATORY DISTRESS. MD AT BEDSIDE FOR EVAL, ORDERS MADE AND CARRIED OUT. BROUGHT TO CT. PAIN MEDS GIVEN ORDERED. MD STAPLED THE LACERATION AT BEDSIDE. WILL CONTINUE TO MONITOR THE PT.
[2020-11-24] MEDS ORDERED: ACETAMINOPHEN ES 500 MG TABLET PO ONE (16:30)
[2020-11-24 17:17] LABS: BILIRUBIN,URINE Negative (NEGATIVE); COLOR,URINE YELLOW (YELLOW); LEUKOCYTE ESTERASE ,URINE Negative (NEGATIVE); NITRITE, URINE Negative (NEGATIVE); PROTEIN,URINE Trace mg/dl (NEGATIVE); UGLUCOSE Negative (NEGATIVE); UROBILINOGEN,URINE 0.2 EU/dL (0.2)
[2020-11-24 17:36] LABS: BACTERIA,URINE Rare /HPF (None Seen); RBC,URINE NONE SEEN /HPF (0-2); SQUAMOUS EPITHELIAL CELL,UR Few /HPF (None Seen); WBC,URINE NONE SEEN /HPF (0-3)
--- NOTE | 2020-11-24 18:26 | NUR ---
JIN WAS CONTACTED TO INFORM THAT HER IS CLEARED FOR DISCHARGE. SHE IS JUST WAITING FOR THEIR FOOD THAT SHE ORDERED AND WILL HEAD HERE TO THE HOSPITAL TO TRADE UNION OFFICIAL HER .
[2020-11-24] MEDS ORDERED: CIPR500T5 PO (18:38)
--- NOTE | 2020-11-24 18:47 | NUR ---
Patient discharged to home in stable condition. Written and verbal after care instructions given. Patient verbalizes understanding of instruction. Pt assisted to their car by EMT on a gurney.
[2020-11-24 18:50] VITALS: BP 161/100
== END 2020-11-24 18:52 | disposition home or self-care (01) ==
LOC: ER 15:40
DX: S01.01XA Laceration without foreign body of scalp, initial encounter (principal); S50.02XA Contusion of left elbow, initial encounter; I10 Essential (primary) hypertension; E78.5 Hyperlipidemia, unspecified; E03.9 Hypothyroidism, unspecified; Z98.890 Other specified postprocedural states; Z88.0 Allergy status to penicillin; Z79.899 Other long term (current) drug therapy; V00.121A Fall from non-in-line roller-skates, initial encounter; Y93.89 Activity, other specified; Y92.89 Other specified places as the place of occurrence of the external cause; Y99.8 Other external cause status
CPT/HCPCS: 12001; 70450; 73080; 81001; 87086; 90471; 90715; 99285; J3490 ×2

== ENCOUNTER 2020-12-04 17:50 | Emergency (ER) | payer MEDICARE, BC ==
[~2020-12-04] VITALS: Ht 170.2 cm; Wt 84.8 kg
[~2020-12-04 17:50] MED LIST changes: +CIPR500T5 PO
[2020-12-04 18:00] VITALS: BP 134/81
== END 2020-12-04 18:09 | disposition home or self-care (01) ==
LOC: ER 18:00
DX: S01.01XD Laceration without foreign body of scalp, subsequent encounter (principal); I10 Essential (primary) hypertension; E78.5 Hyperlipidemia, unspecified; E03.9 Hypothyroidism, unspecified; Z98.890 Other specified postprocedural states; Z88.0 Allergy status to penicillin; Z79.899 Other long term (current) drug therapy; X58.XXXD Exposure to other specified factors, subsequent encounter

== ENCOUNTER → 2021-10-22 | Outpatient (CLI) | payer MEDICARE, BC ==
[~2021-10-22] MED LIST changes: +DOXY-326 PO; -DOXY100C41 PO
[2021-10-22 12:43] LABS: BILIRUBIN,URINE NEGATIVE (NEGATIVE); COLOR,URINE YELLOW (YELLOW); LEUKOCYTE ESTERASE ,URINE MODERATE (NEGATIVE); NITRITE, URINE NEGATIVE (NEGATIVE); PH,URINE 7.5 (5.0-8.0); PROTEIN,URINE TRACE mg/dl (NEGATIVE); UGLUCOSE NEGATIVE (NEGATIVE); UROBILINOGEN,URINE 0.2 EU/dL (0.2)
[2021-10-22 12:51] LABS: WBC,URINE 21-50 /HPF (0-3)
[2021-10-22 12:52] LABS: BACTERIA,URINE Few /HPF (None Seen)
[2021-10-22 13:11] LABS: THYROID STIMULATING HORMONE 1.257 uIU/mL (0.358-3.74)
== END | disposition home or self-care (01) ==
LOC: LAB 11:19
PROVIDERS: ATTEND Psychiatry & Neurology Neurology
DX: N39.0 Urinary tract infection, site not specified (principal); R41.82 Altered mental status, unspecified
CPT/HCPCS: 36415; 81001; 82607-TC; 84439-TC; 84443-TC; 87086-TC; 87186-TC

== ENCOUNTER 2021-10-26 14:56 | Outpatient (CLI) | payer MEDICARE, BC ==
[2021-10-26 15:37] LABS: EOSINOPHILS % (AUTO) 0.8 % (0.0-6.0); HEMOGLOBIN 14.5 g/dL (13.5-17.5); LYMPHOCYTES # (AUTO) 1.3 K/uL (0.8-4.8); MONOCYTES # (AUTO) 0.6 K/uL (0.1-1.30)
[2021-10-26 15:44] LABS: BASOPHILS % (AUTO) 0.2 % (0.0-2.0); HEMATOCRIT 43 % (39-51); LYMPHOCYTES % (AUTO) 18.2 % (20.0-44.0); MEAN CORPUSCULAR HGB CONC 34 g/dl (31.0-36.0); MEAN CORPUSCULAR VOLUME 87 fL (80-96); MONOCYTES % (AUTO) 8.8 % (2.0-12.0); PLATELET COUNT (AUTO) 199 K/uL (150-450); RED BLOOD CELL COUNT(AUTO) 4.93 MIL/uL (4.5-6.0)
[2021-10-26 15:56] LABS: BILIRUBIN,URINE NEGATIVE (NEGATIVE); COLOR,URINE YELLOW (YELLOW); LEUKOCYTE ESTERASE ,URINE SMALL (NEGATIVE); NITRITE, URINE NEGATIVE (NEGATIVE); PROTEIN,URINE TRACE mg/dl (NEGATIVE); UGLUCOSE NEGATIVE (NEGATIVE); UROBILINOGEN,URINE 0.2 EU/dL (0.2)
[2021-10-26 15:58] LABS: CHOLESTEROL 243 mg/dL (<200); HDL CHOLESTEROL 65 mg/dL (40-60); LDL 151 mg/dL (0-99); TRIGLYCERIDES 118 mg/dL (30-150)
[2021-10-26 15:59] LABS: ALBUMIN 4.1 g/dL (3.4-5.0); ALKALINE PHOSPHATASE 99 U/L (46-116); ASPARTATE AMINOTRANSFERASE 9 U/L (15-37); BILIRUBIN,TOTAL 0.6 mg/dL (0.2-1.0); CALCIUM, SERUM 10.3 mg/dL (8.5-10.1); CARBON DIOXIDE 27 mmol/L (21-32); CHLORIDE 104 mmol/L (98-107); CREATININE 1.2 mg/dL (0.6-1.3); GLUCOSE 99 mg/dL (74-106); POTASSIUM 3.9 mmol/L (3.5-5.1); SODIUM SERUM 137 mmol/L (136-145); TOTAL PROTEIN, SERUM 7.8 g/dL (6.4-8.2); UREA NITROGEN, BLOOD 22 mg/dL (7-18)
[2021-10-26 17:02] LABS: ALANINE AMINOTRANSFERASE < 6 U/L (12-78)
[2021-10-26 17:05] LABS: BACTERIA,URINE Rare /HPF (None Seen); RBC,URINE 0-2 /HPF (0-2); SQUAMOUS EPITHELIAL CELL,UR Few /HPF (None Seen)
== END 2021-10-26 23:59 | disposition home or self-care (01) ==
LOC: LAB 14:56
PROVIDERS: ATTEND Internal Medicine Interventional Cardiology
DX: I10 Essential (primary) hypertension (principal); E11.9 Type 2 diabetes mellitus without complications; N39.0 Urinary tract infection, site not specified; E78.5 Hyperlipidemia, unspecified
CPT/HCPCS: 36415; 80053-TC; 80061-TC; 81001; 85025-TC; 87086-TC

== ENCOUNTER 2022-02-04 10:01 | Emergency (ER) | payer MEDICARE, BC ==
[~2022-02-04] VITALS: Ht 170.2 cm; Wt 85.7 kg
--- NOTE | 2022-02-04 10:16 | NUR ---
BIB C/O WEAKNESS, CHILLS AND SWEAT, WORSE THE PAST COUPLE OF DAYS. TO ER BED 7, HOOKED TO MONITOR, CHANGE TO HOSP GOWN, WARM BLANKET PROVIDED. AWAITING MD GOLD.
--- NOTE | 2022-02-04 10:50 | NUR ---
COVID SWAB DONE AND SENT TO LAB
--- NOTE | 2022-02-04 10:55 | NUR ---
URINE COLLECTED AND SENT TO LAB
[2022-02-04 11:25] LABS: BASOPHILS % (AUTO) 0.4 % (0.0-2.0); EOSINOPHILS % (AUTO) 1.1 % (0.0-6.0); HEMATOCRIT 40 % (39-51); HEMOGLOBIN 13.7 g/dL (13.5-17.5); LYMPHOCYTES # (AUTO) 1.4 K/uL (0.8-4.8); LYMPHOCYTES % (AUTO) 16.4 % (20.0-44.0); MEAN CORPUSCULAR HGB CONC 34 g/dl (31.0-36.0); MEAN CORPUSCULAR VOLUME 87 fL (80-96); MONOCYTES # (AUTO) 0.7 K/uL (0.1-1.30); MONOCYTES % (AUTO) 7.8 % (2.0-12.0); NEUTROPHILS # (AUTO) 6.3 K/uL (1.8-8.9); NEUTROPHILS % (AUTO) 74.3 % (43.0-81.0); PLATELET COUNT (AUTO) 218 K/uL (150-450); RED BLOOD CELL COUNT(AUTO) 4.62 MIL/uL (4.5-6.0); WHITE BLOOD COUNT (AUTO) 8.5 K/uL (4.3-11.0)
[2022-02-04 11:39] LABS: BILIRUBIN,URINE NEGATIVE (NEGATIVE); COLOR,URINE YELLOW (YELLOW); LEUKOCYTE ESTERASE ,URINE LARGE (NEGATIVE); NITRITE, URINE NEGATIVE (NEGATIVE); PROTEIN,URINE 100 mg/dl (NEGATIVE); UGLUCOSE NEGATIVE (NEGATIVE); UROBILINOGEN,URINE 0.2 EU/dL (0.2)
[2022-02-04 11:43] LABS: ALANINE AMINOTRANSFERASE 9 U/L (12-78); ALBUMIN 3.5 g/dL (3.4-5.0); ALKALINE PHOSPHATASE 82 U/L (46-116); ASPARTATE AMINOTRANSFERASE 11 U/L (15-37); BILIRUBIN,DIRECT 0.1 mg/dL (0.0-0.2); BILIRUBIN,TOTAL 0.4 mg/dL (0.2-1.0); CALCIUM, SERUM 10.1 mg/dL (8.5-10.1); CARBON DIOXIDE 28 mmol/L (21-32); CHLORIDE 105 mmol/L (98-107); CREATININE 1.2 mg/dL (0.6-1.3); GLUCOSE 102 mg/dL (74-106); POTASSIUM 3.9 mmol/L (3.5-5.1); SODIUM SERUM 139 mmol/L (136-145); TOTAL PROTEIN, SERUM 7.5 g/dL (6.4-8.2); UREA NITROGEN, BLOOD 24 mg/dL (7-18)
[2022-02-04] MEDS ORDERED: hydrALAZINE HCL IV 20 MG VIAL ONE (12:23)
[2022-02-04] MEDS: hydrALAZINE HCL IV 20 MG VIAL IV ONE (12:24)
[2022-02-04 12:36] LABS: BACTERIA,URINE Few /HPF (None Seen); SQUAMOUS EPITHELIAL CELL,UR Few /HPF (None Seen); WBC,URINE 21-50 /HPF (0-3)
[2022-02-04] MEDS: CIPROFLOXACIN HCL 250 MG TABLET PO ONE (13:00)
[2022-02-04] MEDS ORDERED: CIPR-262 PO (13:01)
[2022-02-04] MEDS ORDERED: CIPROFLOXACIN HCL 500 MG TABLET ONE (13:02)
--- NOTE | 2022-02-04 13:23 | NUR ---
IV removed. Catheter intact and site benign. Pressure and 4x4 applied to site. No bleeding noted.Patient discharged to home in stable condition. Written and verbal after care instructions given. Patient verbalizes understanding of instruction.
[2022-02-04 13:56] VITALS: BP 136/89
== END 2022-02-04 13:56 | disposition home or self-care (01) ==
LOC: ER 10:11
DX: N30.00 Acute cystitis without hematuria (principal); Z20.822 Contact with and (suspected) exposure to COVID-19; R61 Generalized hyperhidrosis; E03.9 Hypothyroidism, unspecified; E78.5 Hyperlipidemia, unspecified; Z79.890 Hormone replacement therapy; Z79.899 Other long term (current) drug therapy; I73.9 Peripheral vascular disease, unspecified; I34.1 Nonrheumatic mitral (valve) prolapse; I10 Essential (primary) hypertension; Z88.0 Allergy status to penicillin; R94.31 Abnormal electrocardiogram [ECG] [EKG]
CPT/HCPCS: 99285; 96374; 71045; 87426; 93005; 84145; 85025; 80048; 87040 ×2; 87086; 83605; 80076; 81001; 36415; 84484; 85730; J0360; J7030; C9803

== ENCOUNTER 2022-10-16 10:57 | Inpatient (IN) | payer MEDICARE, BC ==
[~2022-10-16] VITALS: Ht 172.7 cm; Wt 65.8 kg
[~2022-10-16 10:57] MED LIST changes: +CIPR-262 PO
--- NOTE | 2022-10-16 11:15 | NUR ---
Patient AOx4 able to express his concerns. Patient with no signs of distress or discomfort. Discussed plan of care, patient verbalized agreement. All safety precautions taken.
--- NOTE | 2022-10-16 11:18 | NUR ---
COVID SWAB COLLECTED AND SENT TO LAB. CALLED FOR FIELD INSPECTOR.
--- NOTE | 2022-10-16 11:22 | NUR ---
MOVE SHEET SUBMITTED.
[2022-10-16] MEDS ORDERED: CEFEPIME 1 GM in IV D5W 50 ML IV ONE ×2 (11:30→15:00)
--- NOTE | 2022-10-16 11:30 | NUR ---
Labs and urine collected and sent to lab.
[2022-10-16] MEDS ORDERED: CEFTRIAXONE 1GM BAG (ER ONLY) 50 ML IV ONE (11:32)
[2022-10-16] MEDS ORDERED: VALS80TA2 PO (11:50)
[2022-10-16] MEDS ORDERED: MIRT-90 PO (11:50)
[2022-10-16] MEDS ORDERED: PANT40TA49 PO (11:50)
[2022-10-16] MEDS ORDERED: CARB1TAB39 PO ×2 (11:50)
[2022-10-16] MEDS ORDERED: LORA-258 PO (11:50)
[2022-10-16] MEDS ORDERED: ROSU20TA32 PO (11:50)
[2022-10-16 11:51] LABS: LYMPHOCYTES # (AUTO) 1.3 K/uL (0.8-4.8); MONOCYTES # (AUTO) 0.6 K/uL (0.1-1.30)
[2022-10-16] MEDS ORDERED: AMLO-212 PO (11:51)
[2022-10-16 12:01] LABS: CALCIUM, SERUM 9.9 mg/dL (8.5-10.1); CREATININE 1.2 mg/dL (0.6-1.3); POTASSIUM 3.8 mmol/L (3.5-5.1)
[2022-10-16 12:09] LABS: BASOPHILS % (AUTO) 0.2 % (0.0-2.0); EOSINOPHILS % (AUTO) 1.1 % (0.0-6.0); HEMATOCRIT 40 % (39-51); HEMOGLOBIN 13.1 g/dL (13.5-17.5); LYMPHOCYTES % (AUTO) 18.9 % (20.0-44.0); MEAN CORPUSCULAR HGB CONC 33 g/dl (31.0-36.0); MEAN CORPUSCULAR VOLUME 89 fL (80-96); MONOCYTES % (AUTO) 8.7 % (2.0-12.0); NEUTROPHILS # (AUTO) 4.9 K/uL (1.8-8.9); NEUTROPHILS % (AUTO) 71.1 % (43.0-81.0); PLATELET COUNT (AUTO) 159 K/uL (150-450); RED BLOOD CELL COUNT(AUTO) 4.46 MIL/uL (4.5-6.0); WHITE BLOOD COUNT (AUTO) 6.9 K/uL (4.3-11.0)
--- NOTE | 2022-10-16 12:18 | NUR ---
[facility] CALLED MATERNITY NURSE PAGED.
[2022-10-16 13:25] LABS: BILIRUBIN,URINE NEGATIVE (NEGATIVE); COLOR,URINE DARK YELLOW (YELLOW); LEUKOCYTE ESTERASE ,URINE 3+ (NEGATIVE); NITRITE, URINE POSITIVE (NEGATIVE); PH,URINE 6.5 (5.0-8.0); PROTEIN,URINE 2+ mg/dl (NEGATIVE); UGLUCOSE NEGATIVE (NEGATIVE); UROBILINOGEN,URINE 0.2 EU/dL (0.2)
--- NOTE | 2022-10-16 13:38 | NUR ---
BED ASSINGMENT 310-2
[2022-10-16 13:39] LABS: RBC,URINE 81-100 /HPF (0-2)
[2022-10-16 13:40] LABS: BACTERIA,URINE 3+ /HPF (None Seen); SQUAMOUS EPITHELIAL CELL,UR Few /HPF (None Seen); WBC,URINE TOO NUMEROUS TO COUN /HPF (0-3)
--- NOTE | 2022-10-16 13:43 | NUR ---
3W RN will call back for report.
--- NOTE | 2022-10-16 14:00 | NUR ---
PATIENT TRANFER TO THE ROOM 310-2, REPORT RECEIVED BY RELL/RN.
--- NOTE | 2022-10-16 14:01 | NUR ---
Report given to Melodie ARAIZA, patient cleared to go to Room #310-2
[2022-10-16] MEDS ORDERED: hydrALAZINE HCL IV 20 MG VIAL IV PRN (14:30)
[2022-10-16] MEDS ORDERED: MORPHINE SULFATE INJ 2 MG/ML DISP.SYRIN IV PRN (14:30)
[2022-10-16] MEDS ORDERED: ONDANSETRON HCL/PF 4 MG/2 ML VIAL IVP PRN (14:30)
--- NOTE | 2022-10-16 14:30 | NUR ---
PATIENT ADMITTED FROM ER WITH FRANCES, THE DX IS UTI (MDRD) REPORTED BY RELL/TEODORA. PATIENT MENTIONED THAT HE BROUGHT HOME MEDICATIONS AND PHARMACY IS HOLDING HIS MEDICATIONS. CLARIFIED WITH PHARMACY WHO SAID "DID NOT RECIEVED MEDICATIONS FROM THE PATIENT, WE HAVE ALL MEDICATIONS HERE WHICH PATIENT TAKES HOME MEDICATIONS." THERE IS NO DOCUMENTED MEDICATION NAME ON THE BELONGING LIST ALSO.
[2022-10-16] MEDS: IV NS 0.9% 1,000 ML IV SCH (14:50)
[2022-10-16] MEDS: ENOXAPARIN SODIUM 40 MG/0.4 ML DISP.SYRIN SQ SCH (15:06)
--- NOTE | 2022-10-16 18:19 | NUR ---
RN CLOSING NOTE PATIENT RESTING IN BED. IN NO ACUTE DISTRESS OBSERVED. RESPIRATORY EVEN AND UNLABORED IN ROOM AIR. SKIN IS WARM TO TOUCH KEEP CLEAN/DRY. PATIENT IS STARTING IV ABX, NO ADVERSE REACTION OBSERVED. ENCOURAGED ORAL FLUID INTAKE TOLERATED. KEPT ELEVATED HOB FOR ASPIRATION PRECAUTION AND BED ALARM IS ON AT ALL TIMES FOR SAFETY. CALL LIGHT WITHIN REACH, WILL ENDORSE JIG AND FIXTURE BUILDER APPRENTICE.
[2022-10-16] MEDS: CARBIDOPA/LEVA CR 25/100MG 1 TAB.SA PO SCH (18:33)
[2022-10-16 20:00] VITALS: BP 121/81
[2022-10-16 20:20] VITALS: BP 121/81
[2022-10-16] MEDS: QUETIAPINE FUMARATE 25 MG TABLET PO SCH (21:11)
[2022-10-16] MEDS: MIRTAZAPINE 15 MG TABLET PO SCH (21:11)
[2022-10-16] MEDS: ATORVASTATIN 40 MG TABLET PO SCH (21:12)
[2022-10-16] MEDS: LORAZEPAM 0.5 MG TABLET PO PRN (22:32)
[2022-10-17] MEDS: IV NS 0.9% 1,000 ML IV SCH (04:09)
[2022-10-17] MEDS: ACETAMINOPHEN 325 MG TABLET PO PRN (05:16)
--- NOTE | 2022-10-17 06:00 | NUR ---
CLOSING NOTES: ALERT AND ORIENTATED X4 TALKATIVE REGARDING HIS HEALTH AND MEDICATION WEARING A DIAPER D/T DOESN'T WANT TO USE THE URINAL AFEBRILE THIS 12 HOURS GOOD ABOUT MOVING ABOUT IN THE BED
[2022-10-17 06:08] LABS: BASOPHILS % (AUTO) 0.3 % (0.0-2.0); EOSINOPHILS % (AUTO) 2.3 % (0.0-6.0); HEMATOCRIT 35 % (39-51); HEMOGLOBIN 11.8 g/dL (13.5-17.5); LYMPHOCYTES # (AUTO) 1.7 K/uL (0.8-4.8); LYMPHOCYTES % (AUTO) 35.2 % (20.0-44.0); MEAN CORPUSCULAR HGB CONC 34 g/dl (31.0-36.0); MEAN CORPUSCULAR VOLUME 89 fL (80-96); MONOCYTES # (AUTO) 0.5 K/uL (0.1-1.30); MONOCYTES % (AUTO) 10.7 % (2.0-12.0); NEUTROPHILS # (AUTO) 2.5 K/uL (1.8-8.9); NEUTROPHILS % (AUTO) 51.5 % (43.0-81.0); PLATELET COUNT (AUTO) 146 K/uL (150-450); RED BLOOD CELL COUNT(AUTO) 3.96 MIL/uL (4.5-6.0); WHITE BLOOD COUNT (AUTO) 4.8 K/uL (4.3-11.0)
[2022-10-17 06:30] LABS: BILIRUBIN,TOTAL 0.4 mg/dL (0.2-1.0); CALCIUM, SERUM 9.5 mg/dL (8.5-10.1); CREATININE 1.2 mg/dL (0.6-1.3); MAGNESIUM 2.1 mg/dL (1.8-2.4); PHOSPHORUS 3.1 mg/dL (2.5-4.9); POTASSIUM 3.9 mmol/L (3.5-5.1); TOTAL PROTEIN, SERUM 5.9 g/dL (6.4-8.2)
[2022-10-17] MEDS: LEVOTHYROXINE SODIUM 75 MCG TABLET PO SCH (07:21)
[2022-10-17] MEDS: PANTOPRAZOLE 40 MG TABLET.DR PO SCH (07:21)
[2022-10-17] MEDS: CARBIDOPA/LEVA CR 25/100MG 1 TAB.SA PO SCH ×3 (07:23→18:08)
--- NOTE | 2022-10-17 07:50 | NUR ---
MS RN OPENING NOTES RECEIVED PT AWAKE IN BED AND WATCHING TV, A/O X 4, ABLE TO MAKE NEEDS KNOWN. ON ROOM AIR AND TOLERATING WELL. IV ACCESS ON LEFT UPPER ARM #20G WITH ONGOING NS @ 75 ML/HR, PATENT AND INFUSING WELL. SAFETY PRECAUTIONS MAINTAINED: BED LOCKED AND IN LOWEST POSITION, SIDE RAILS UP X2, BED ALARM ON, CALL LIGHT AND TRAY TABLE WITHIN REACH. WILL CONTINUE TO MONITOR PATIENT.
[2022-10-17] MEDS: AMLODIPINE BESYLATE 5 MG TABLET PO SCH (08:22)
[2022-10-17] MEDS: ESCITALOPRAM OXALATE (10 MG) 10 MG TABLET PO SCH (08:23)
[2022-10-17] MEDS: VALSARTAN 80 MG TABLET PO SCH (08:24)
[2022-10-17 12:00] VITALS: BP 120/86
--- NOTE | 2022-10-17 12:15 | NUR ---
RN NOTES RECHECKED BLOOD PRESSURE AT 1200, BP- 120/86. WILL CONTINUE TO MONITOR PATIENT.
--- NOTE | 2022-10-17 12:26 | NUR ---
RN NOTES PICC LINE TEODORA ESCOTO INSERTED MIDLINE ACCESS AT LEFT UPPER ARM G#18. IV NS 75ML/HR CONTINUED. IV @ LEFT UPPER ARM #20G REMOVED.
[2022-10-17] MEDS: ENOXAPARIN SODIUM 40 MG/0.4 ML DISP.SYRIN SQ SCH (14:45)
[2022-10-17] MEDS: CEFEPIME 2 GM in IV D5W 100 ML IV SCH (15:14)
[2022-10-17 16:00] VITALS: BP 152/92
--- NOTE | 2022-10-17 18:44 | NUR ---
MS RN CLOSING NOTES PATIENT AWAKE IN BED , A/O X 4, ABLE TO MAKE NEEDS KNOWN. ON ROOM AIR AND TOLERATING WELL.NO COMPLAIN OF PAIN AND DISCOMFORT AT THIS TIME, IV ACCESS ON LEFT UPPER ARM #18G WITH ONGOING NS @ 75 ML/HR, PATENT AND INFUSING WELL. SAFETY PRECAUTIONS MAINTAINED: BED LOCKED AND IN LOWEST POSITION, SIDE RAILS UP X2, BED ALARM ON, CALL LIGHT AND TRAY TABLE WITHIN REACH. WILL ENDORSE TO INTERNATIONAL TRADE COMPLIANCE MANAGER NURSE FOR YASMINE.
--- NOTE | 2022-10-17 19:30 | NUR ---
MS RN OPENING NOTES RECEIVED PT AWAKE IN BED , A/O X 4, ABLE TO MAKE NEEDS KNOWN. ON ROOM AIR AND TOLERATING WELL. NO COMPLAIN OF PAIN AND DISCOMFORT AT THIS TIME, IV ACCESS ON LEFT UPPER ARM MIDLINE #18G SL, INTACT, PATENT, FLUSHING WELL. SAFETY PRECAUTIONS IN PLACE: BED LOCKED AND IN LOWEST POSITION, SIDE RAILS UP X2, BED ALARM ON, CALL LIGHT AND TRAY TABLE WITHIN REACH. WILL CONTINUE TO MONITOR AND ASSIST.
[2022-10-17 20:00] VITALS: BP 136/95
[2022-10-17] MEDS: ATORVASTATIN 40 MG TABLET PO SCH (21:15)
[2022-10-17] MEDS: QUETIAPINE FUMARATE 25 MG TABLET PO SCH (21:15)
[2022-10-17] MEDS: MIRTAZAPINE 15 MG TABLET PO SCH (21:15)
[2022-10-17] MEDS: LORAZEPAM 0.5 MG TABLET PO PRN (22:13)
--- NOTE | 2022-10-17 22:15 | NUR ---
RN NOTE PT OFFERED TO BE REPOSITIONED FROM SUPINE TO HIS SIDE BUT REFUSED. PT STATES "I CAN'T SLEEP ON MY SIDES".
[2022-10-18] MEDS: ACETAMINOPHEN 325 MG TABLET PO PRN (02:15)
--- NOTE | 2022-10-18 06:57 | NUR ---
MS RN CLOSING NOTES PT AWAKE IN BED , A/O X 4, ABLE TO MAKE NEEDS KNOWN. STABLE ON ROOM AIR AND TOLERATING WELL. NO COMPLAIN OF PAIN AND DISCOMFORT AT THIS TIME, IV ACCESS ON LEFT UPPER ARM MIDLINE #18G SL, INTACT, PATENT, FLUSHING WELL. ALL CARE PROVIDED AND MEDS TOLERATED WELL. TURNED AND REPOSITIONED AT START OF SHIFT BUT REFUSED FURTHER REPOSITIONING BECAUSE PT DOES NOT LIKE TO BE ON HIS SIDE WHILE HE SLEEPS. SAFETY PRECAUTIONS MAINTAINED: BED LOCKED AND IN LOWEST POSITION, SIDE RAILS UP X2, BED ALARM ON, CALL LIGHT AND TRAY TABLE WITHIN REACH. WILL ENDORSE YASMINE TO DAY SHIFT NURSE.
--- NOTE | 2022-10-18 07:29 | NUR ---
MS RN OPENING NOTES RECEIVED PT IN BED, AWAKE. A/O X 4, ABLE TO MAKE NEEDS KNOWN, NO COMPLAIN OF PAIN AND DISCOMFORT AT THIS TIME. ON ROOM AIR, TOLERATING WELL. MIDLINE IN LEFT UPPER ARM #18G SL, C/D/I. SAFETY PRECAUTIONS IN PLACE: BED LOCKED AND IN LOWEST POSITION, SIDE RAILS UP X2, BED ALARM ON, CALL LIGHT AND TRAY TABLE WITHIN REACH. WILL CONTINUE TO MONITOR.
[2022-10-18 08:00] VITALS: BP 165/110
[2022-10-18] MEDS: PANTOPRAZOLE 40 MG TABLET.DR PO SCH (08:02)
[2022-10-18] MEDS: CARBIDOPA/LEVA CR 25/100MG 1 TAB.SA PO SCH ×2 (08:03→12:55)
[2022-10-18] MEDS: LEVOTHYROXINE SODIUM 75 MCG TABLET PO SCH (08:06)
[2022-10-18] MEDS: AMLODIPINE BESYLATE 5 MG TABLET PO SCH (08:56)
[2022-10-18] MEDS: ESCITALOPRAM OXALATE (10 MG) 10 MG TABLET PO SCH (08:56)
[2022-10-18] MEDS: VALSARTAN 80 MG TABLET PO SCH (08:56)
--- NOTE | 2022-10-18 10:41 | NUR ---
DC PLANNING: REBECCA called the pt.'s , Natalia Zurita tel:[phone] and no voicemail option also called her at tel:[phone] and no answer however, REBECCA left voicemail with brief message and call back number.
[2022-10-18] MEDS ORDERED: CEFE2FRO IV (11:37)
[2022-10-18] MEDS: CEFEPIME 2 GM in IV D5W 100 ML IV SCH (14:24)
[2022-10-18] MEDS: ENOXAPARIN SODIUM 40 MG/0.4 ML DISP.SYRIN SQ SCH (14:27)
--- NOTE | 2022-10-18 15:26 | NUR ---
RN NOTES PATIENT'S BP-160/100, NJ-68, APRESOLINE 10MG/0.5ML IV PRN GIVEN, WILL CONTINUE TO MONITOR.
[2022-10-18 16:00] VITALS: BP 157/100
--- NOTE | 2022-10-18 16:40 | NUR ---
SUPERINTENDENT LAUNDRY NOTE PATIENT DISCHARGED TO [facility] IN A STABLE CONDITION. A/O X 4, ON ROOM AIR, TOLERATING WELL. V/S TAKEN AND RECORDED. MAINTAINED MIDLINE IN LEFT UPPER ARM #18G, C/D/I. ALL BELONGINGS ACCOUNTED FOR. DISCHARGED INSTRUCTIONS GIVEN TO PT VERBALIZED UNDERSTANDING. REPORT GIVEN TO MAGUE ARAIZA IN [facility], VERBALIZED UNDERSTANDING. MD AND CHARGE NURSE AWARE OF DISCHARGE. PT LEFT THE UNIT AT 1630 VIA GURNEY ACCOMPANIED BY 3 FIRE EXTINGUISHER SPRINKLER INSPECTOR.
== END 2022-10-18 16:30 | DRG 690 ==
LOC: ER 10:59 → MED 13:39
PROVIDERS: ADMIT Internal Medicine; ATTEND Internal Medicine
PROC: 05HC33Z Insertion of Infusion Device into Left Basilic Vein, Percutaneous Approach (ICD-10-PCS; principal; 2022-10-17)
DX: N39.0 Urinary tract infection, site not specified (principal); Z16.24 Resistance to multiple antibiotics; E78.5 Hyperlipidemia, unspecified; D64.9 Anemia, unspecified; G20 Parkinson's disease; Z20.822 Contact with and (suspected) exposure to COVID-19; I10 Essential (primary) hypertension; I73.9 Peripheral vascular disease, unspecified; I34.1 Nonrheumatic mitral (valve) prolapse; E03.9 Hypothyroidism, unspecified; Z88.0 Allergy status to penicillin; R30.0 Dysuria; N40.0 Benign prostatic hyperplasia without lower urinary tract symptoms; Z82.49 Family history of ischemic heart disease and other diseases of the circulatory system; Z80.9 Family history of malignant neoplasm, unspecified; Z87.11 Personal history of peptic ulcer disease; G47.9 Sleep disorder, unspecified
CPT/HCPCS: 36410; 36415; 80048-TC; 80053-TC; 81001; 83735-TC; 84100-TC; 85025-TC; 87040-TC; 87081-TC; 87086-TC; 93307-TC; A4223; C9803; G0378; J0360; J0692; J0696; J1650; J7030; J7050; J7060